=== PATIENT | female | born 1935 | race Caucasian/White ===

== ENCOUNTER 2018-01-12 16:11 | Inpatient (IN) | payer MEDICARE ==
[2018-01-12] VITALS (10 sets, daily range): BP systolic 187–218; BP diastolic 75–118; PULSE 100–114; RESP 18–24; TEMP 98.4; O2SAT 95–98
[~2018-01-12] VITALS: Ht 167.6 cm; Wt 41.1 kg
[~2018-01-12 16:11] MED LIST: ADVA100A INH; ALBU.5I NEB; APIX2.5T PO; ASPI1TAB57 PO; CART240C PO; COZA100T PO; GABA300C5 PO; IPRAAER INH; LORA0.5T PO; PRED10PA PO; PREV30CA36 PO; VENTAER INH
[2018-01-12] MEDS ORDERED: SODIUM CHLOR 0.9% 1000 ML INJ 1,000 ML IV SCH (16:26)
[2018-01-12] MEDS ORDERED: SODIUM CHLORIDE 0.9% FLUSH 10 ML FLUSH IV FLUSH PRN (16:30)
--- NOTE | 2018-01-12 16:43 | PD ---
HPI Chief Complaint: failure to thrive Time Seen by Provider: 16:25 Travel History International Travel<30 days: No Contact w/Intl Traveler<30days: No Traveled to known affect area: No History of Present Illness HPI 82-year-old female who lives alone, brought in by ambulance after her neighbor who takes care of her found her laying in bed where she states she has been for the last 3 days. The patient has had generalized weakness and has been unable to get herself out of the bed. Her neighbor he usually takes care of her recently broke his leg is unable to do so. The patient reports that she has been in bed for the last 3 days and urinated in her bed. She had a slight cough last night. She denies chest pain or dyspnea. No abdominal pain. She also reports having some loose bowel movements yesterday. She is unsure if she has had a fever. PFSH Past Medical History Hx Anticoagulant Therapy: Yes Arthritis: Yes Asthma: Yes Atrial Fibrillation: Yes Autoimmune Disease: No Blood Disorders: No Anxiety: No Depression: Yes Heart Rhythm Problems: Yes Cancer: Yes (LUNG CA L UPPER LOBECTOMY 2000) Cardiovascular Problems: Yes High Cholesterol: Yes Chemotherapy: No Chest Pain: No Congestive Heart Failure: No COPD: Yes Cerebrovascular Accident: No Coronary Artery Disease: Yes Diabetes: No Diminished Hearing: No Endocrine: Yes Gastrointestinal Disorders: Yes (ACID REFLUX, CROFT'S ESOPHAGUS, POLYPS IN COLON) GERD: Yes Glaucoma: No Genitourinary: No Headaches: Yes Hepatitis: Yes (HEPATITIS A) Hiatal Hernia: No Heparin Induced Thrombocytopen: No Herniated Disk: Yes (CERVICAL ) Hypertension: No Immune Disorder: Yes (FIBROMYALGIA) Implanted Vascular Access Dvce: Yes Kidney Stones: Yes Musculoskeletal: Yes Neurologic: No Psychiatric: No Reproductive: No Respiratory: Yes Immunizations Current: Yes Migraines: No Myocardial Infarction: No Radiation Therapy: No Renal Failure: No Seizures: No Sickle Cell Disease: No Sleep Apnea: No Thyroid Disease: Yes Ulcer: No Menopausal: Yes : 1 Para: 1 Past Surgical History Abdominal Surgery: Yes (APPENDECTOMY, CHOLECYSTECTOMY) AICD: No Appendectomy: Yes (1961) Arteriovenous Shunt: No Body Medical Devices: L GREAT TOE, stent in stomach Cholecystectomy: Yes (1983) Endocrine Surgery: Yes (PARTIAL THYROIDECTOMY FOR NODULE, 1997) Eye Surgery: Yes (BILATERAL CATARACTS REMOVED) Neurologic Surgery: No Pacemaker: No Thoracic Surgery: Yes (LEFT UPPER LUNG PARTIAL LOBECTOMY 2000) Other Surgery: Yes (thyroidectomy) Social History Alcohol Use: No Tobacco Use: Yes (12/02 PPD) Substance Use: No Allergies-Medications (Allergen,Severity, Reaction): Coded Allergies: codeine (Unverified Allergy, Severe, 07/15/17) morphine (Unverified Allergy, Severe, 07/15/17) penicillin G (Unverified Allergy, Severe, 07/15/17) amiodarone (Unverified Adverse Reaction, Severe, THYROID STORM, 07/15/17) Uncoded Allergies: NICKEL (Adverse Reaction, Intermediate, SKIN ITCHES, BLISTERS, , 05/13/14) Reported Meds & Prescriptions Reported Meds & Active Scripts Active Reported Diltiazem CD 24 HR 240 Mg Caper 240 Mg PO DAILY Prevacid (Lansoprazole) 30 Mg Capdr 30 Mg PO DAILY Cozaar (Losartan Potassium) 100 Mg Tab 100 Mg PO HS Lorazepam 0.5 Mg Tab 0.5 Mg PO BID PRN Gabapentin 300 Mg Cap 300 Mg PO TID Combivent Respimat Inh (Ipratropium-Albuterol Inh) 20-100 [facility]/Act Aero 1 Puff INH QID Aspirin 81 (Aspirin) 81 Mg Tabdr 81 Mg PO DAILY Eliquis (Apixaban) 2.5 Mg Tab 2.5 Mg PO DAILY Ventolin Hfa 18 GM Inh (Albuterol Sulfate) 90 Mcg/Act Aer 2 Puff INH Q4-6H PRN Albuterol Neb (Albuterol Sulfate) 2.5 Mg/0.5 Ml Neb 2.5 Mg NEB Q4HR NEB PRN Note: The Albuterol Sulfate Inhalation Solution is concentrated and must be diluted. Read complete instructions carefully before using. Advair Diskus Inh (Fluticasone-Salmeterol Inh) 100-50 Mcg/Blist Aer 1 Puff INH BID Rinse mouth after use. Review of Systems Except as stated in HPI: all other systems reviewed are Neg Physical Exam Narrative GENERAL: Well-developed, cachectic, elderly-appearing female, awake, alert, no apparent distress. SKIN: Focused skin assessment warm/dry. HEAD: Atraumatic. Normocephalic. EYES: Pupils equal and round. No scleral icterus. No injection or drainage. ENT: Mucous membranes pink and dry. NECK: Trachea midline. No JVD. CARDIOVASCULAR: Regular rate and rhythm. RESPIRATORY: No accessory muscle use. Clear to auscultation. Breath sounds equal bilaterally. GASTROINTESTINAL: Abdomen soft, non-tender, nondistended. MUSCULOSKELETAL: No obvious deformities. No clubbing. No cyanosis. No edema. NEUROLOGICAL: Awake and alert. No obvious cranial nerve deficits. Motor grossly within normal limits. Normal speech. PSYCHIATRIC: Appropriate mood and affect; insight and judgment normal. Data Data Last Documented VS Vital Signs Date Time Temp Pulse Resp B/P (MAP) Pulse Ox O2 Delivery O2 Flow Rate FiO2 01/12/18 17:04 98 Nasal Cannula 2.00 01/12/18 17:01 98.4 111 18 187/75 (112) Orders Orders Complete Blood Count With Diff (01/12/18 16:26) Comprehensive Metabolic Panel (01/12/18 16:26) Prothrombin Time / Inr (Pt) (01/12/18 16:26) Act Partial Throm Time (Ptt) (01/12/18 16:26) Urinalysis - C+S If Indicated (01/12/18 16:26) Iv Access Insert/Monitor (01/12/18 16:26) Ecg Monitoring (01/12/18 16:26) Oximetry (01/12/18 16:26) Sodium Chloride 0.9% Flush (Ns Flush) (01/12/18 16:30) Electrocardiogram (01/12/18 16:26) Creatine Kinase (Cpk) (01/12/18 16:26) Cath For Specimen (01/12/18 16:26) Sodium Chlor 0.9% 1000 Ml Inj (Ns 1000 M (01/12/18 16:26) Chest, Single Ap (01/12/18 ) Ckmb (Isoenzyme) Profile (01/12/18 17:03) Troponin I (01/12/18 17:03) Admit To Inpatient (01/12/18 ) Vital Signs (Adult) LIN.Q4H (01/12/18 18:03) Activity Oob With Assistance (01/12/18 18:03) Diet Regular Basic (01/12/18 Dinner) Inpatient Certification (01/12/18 ) Admit Order (Ed Use Only) (01/12/18 18:11) Labs Laboratory Tests Test 2/12/18 16:51 White Blood Count 5.6 TH/MM3 Red Blood Count 4.42 MIL/MM3 Hemoglobin 12.9 GM/DL Hematocrit 39.4 % Mean Corpuscular Volume 89.2 FL Mean Corpuscular Hemoglobin 29.2 PG Mean Corpuscular Hemoglobin Concent 32.7 % Red Cell Distribution Width 14.1 % Platelet Count 317 TH/MM3 Mean Platelet Volume 7.6 FL Neutrophils (%) (Auto) 77.1 % Lymphocytes (%) (Auto) 15.7 % Monocytes (%) (Auto) 6.4 % Eosinophils (%) (Auto) 0.1 % Basophils (%) (Auto) 0.7 % Neutrophils # (Auto) 4.3 TH/MM3 Lymphocytes # (Auto) 0.9 TH/MM3 Monocytes # (Auto) 0.4 TH/MM3 Eosinophils # (Auto) 0.0 TH/MM3 Basophils # (Auto) 0.0 TH/MM3 CBC Comment DIFF FINAL Differential Comment Prothrombin Time 10.9 SEC Prothromb Time International Ratio 1.1 RATIO Activated Partial Thromboplast Time 23.6 SEC Blood Urea Nitrogen 30 MG/DL Creatinine 0.91 MG/DL Random Glucose 76 MG/DL Total Protein 7.3 GM/DL Albumin 3.7 GM/DL Calcium Level 9.0 MG/DL Alkaline Phosphatase 94 U/L Aspartate Amino Transf (AST/SGOT) 64 U/L Alanine Aminotransferase (ALT/SGPT) 67 U/L Total Bilirubin 0.8 MG/DL Sodium Level 145 MEQ/L Potassium Level 4.1 MEQ/L Chloride Level 105 MEQ/L Carbon Dioxide Level 33.6 MEQ/L Anion Gap 6 MEQ/L Estimat Glomerular Filtration Rate 59 ML/MIN Total Creatine Kinase 76 U/L Troponin I 0.09 NG/ML [facility] Medical Decision Making Medical Screen Exam Complete: Yes Emergency Medical Condition: Yes Medical Record Reviewed: Yes Interpretation(s) EKG: Ectopic atrial tachycardia with frequent PVCs in a bigeminal pattern, LVH Differential Diagnosis Failure to thrive, metabolic abnormality, dehydration, renal insufficiency, hyperkalemia Narrative Course Initial vital signs show heart rate 111, blood pressure 187/75, pulse ox 97% on 2 L nasal cannula, oral temp of 98.4F. CBC is essentially unremarkable. CMP is remarkable for AST 64, ALT 67, otherwise essentially unremarkable. Troponin is 0.09. Chest x-ray: COPD with persistent pleural parenchymal scarring at the left base. No superimposed acute infiltrate. Patient was made aware of all findings. Given her living condition where she lives alone and her neighbor who cares and checks in on her recently broke his leg, and the fact that the patient spent 3 days in bed urinating and defecating on herself, she will be admitted for failure to thrive and likely penitentiary placement. Case discussed with hospitalist Dr. Patterson who will admit the patient to his service. Diagnosis Primary Impression: Failure to thrive in adult Additional Impression: Elevated troponin Jesu Best MD Jan 12, 2018 16:43
[2018-01-12] MEDS ORDERED: DILT240C44 PO (16:58)
[2018-01-12 16:59] LABS: AUTOMATED NEUTROPHIL # 4.3 TH/MM3 (1.8-7.7); BASOPHIL % 0.7 % (0.0-2.0); EOSINOPHIL % 0.1 % (0.0-4.0); HEMATOCRIT 39.4 % (35.0-46.0); HEMOGLOBIN 12.9 GM/DL (11.6-15.3); LYMPH % 15.7 % (9.0-44.0); LYMPHOCYTE # 0.9 TH/MM3 (1.0-4.8); MEAN CELL VOLUME 89.2 FL (80.0-100.0); MEAN CORPUSCULAR HEMOGLOBIN 29.2 PG (27.0-34.0); MEAN CORPUSCULAR HGB CONC 32.7 % (32.0-36.0); MEAN PLATELET VOLUME 7.6 FL (7.0-11.0); MONO % 6.4 % (0.0-8.0); MONOCYTE # 0.4 TH/MM3 (0-0.9); NEUT % 77.1 % (16.0-70.0); PLATELET COUNT 317 TH/MM3 (150-450); RED BLOOD COUNT 4.42 MIL/MM3 (4.00-5.30); RED CELL DISTRIBUTION WIDTH 14.1 % (11.6-17.2); WHITE BLOOD COUNT 5.6 TH/MM3 (4.0-11.0)
[2018-01-12 17:06] LABS: CHLORIDE 105 MEQ/L (98-107); SODIUM (NA) 145 MEQ/L (136-145)
[2018-01-12 17:09] LABS: ALBUMIN 3.7 GM/DL (3.4-5.0); BICARBONATE 33.6 MEQ/L (21.0-32.0); BLOOD UREA NITROGEN 30 MG/DL (7-18); GLUCOSE,RANDOM 76 MG/DL (74-106)
[2018-01-12 17:10] LABS: INTERNATIONAL NORMALIZED RATIO 1.1 RATIO; PROTHROMBIN TIME - PATIENT 10.9 SEC (9.8-11.6)
[2018-01-12 17:12] LABS: ALT (GPT) 67 U/L (10-53); AST (GOT) 64 U/L (15-37)
[2018-01-12 17:13] LABS: CREATININE 0.91 MG/DL (0.50-1.00); GLOMERULAR FILTRATION RATE 59 ML/MIN (>89)
[2018-01-12 17:14] LABS: TOTAL BILIRUBIN ADULT 0.8 MG/DL (0.2-1.0); TOTAL PROTEIN 7.3 GM/DL (6.4-8.2)
[2018-01-12 17:15] LABS: ALKALINE PHOSPHATASE 94 U/L (45-117)
[2018-01-12 17:27] LABS: TROPONIN I 0.09 NG/ML (0.02-0.05)
--- NOTE | 2018-01-12 17:56 | RADRPT ---
EXAM DATE/TIME: 01/12/2018 17:10 [facility] COMPARISON: CHEST SINGLE AP, November 13, 2016, 15:49. INDICATIONS : Patient presents extremely short of breath with history of COPD. MEDICAL HISTORY : Cardiovascular disease. Hypercholesterolemia. Gastroesophageal reflux SURGICAL HISTORY : Appendectomy. Cholecystectomy. ENCOUNTER: Initial ACUITY: 1 day PAIN SCORE: 1/10 LOCATION: Bilateral upper chest FINDINGS: A single view of the chest demonstrates the lungs to be symmetrically hyperinflated. Stable pleural-p arenchymal scarring in the left base. Right lung is otherwise clear. Postsurgical changes project ove r the descending thoracic aorta and aortic arch. Heart size is borderline prominent but appears to be well compensated. Osseous structures are intact. CONCLUSION: 1. COPD with persistent pleural-parenchymal scarring in the left base. 2. No superimposed acute infiltrate. Jimmy Mcdonald MD on January 12, 2018 at 17:52 Board Certified Radiologist. This report was verified electronically.
[2018-01-12 19:08] LABS: BILIRUBIN, URINE NEG (NEG); BLOOD, URINE NEG (NEG); GLUCOSE,URINE NEG (NEG); KETONE, URINE 15 mg/dL (NEG); NITRITE,URINE NEG (NEG); URINE LEUKOCYTE ESTERASE NEG (NEG)
[2018-01-12 19:14] LABS: MUCUS URINE OCC /lpf (OCC); URINE COLOR YELLOW (YELLW/STRAW)
[2018-01-12 19:15] LABS: RBC, URINE 0-3 /hpf (0-3); SQUAMOUS EPITHELIAL CELL URINE 0-5 /hpf (0-5)
[2018-01-12] MEDS ORDERED: SODIUM CHLOR 0.9% 250 ML INJ 250 ML IV ONE (20:45)
[2018-01-12] MEDS ORDERED: LOSARTAN 50 MG TAB PO ONE (21:30)
[2018-01-13] VITALS (9 sets, daily range): BP systolic 119–177; BP diastolic 55–108; PULSE 59–141; RESP 20–25; TEMP 95.8–98; O2SAT 93–100
[2018-01-13] MEDS ORDERED: ASPIRIN 81 MG CHEW TAB CHEW ONE (00:45)
[2018-01-13] MEDS ORDERED: LABETALOL HCL 100 MG/20 ML VIAL IV PUSH PRN (00:45)
[2018-01-13] MEDS ORDERED: ENOXAPARIN SODIUM 40 MG/0.4 ML SYRINGE SQ SCH (01:00)
--- NOTE | 2018-01-13 01:22 | RADRPT ---
EXAM DATE/TIME: 01/13/2018 01:05 [facility] COMPARISON: No previous studies available for comparison. INDICATIONS : Evaluate for cerebrovascular injury. Altered mental status. RADIATION DOSE: 38.09 CTDIvol (mGy) MEDICAL HISTORY : Hypertension. Carcinoma, lung. SURGICAL HISTORY : None. ENCOUNTER: Initial ACUITY: 3 days PAIN SCALE: 2/10 LOCATION: cranial TECHNIQUE: Multiple contiguous axial images were obtained of the head. Using automated exposure control and adj ustment of the mA and/or kV according to patient size, radiation dose was kept as low as reasonably a chievable to obtain optimal diagnostic quality images. DICOM format image data is available electro nically for review and comparison. FINDINGS: There is mild atrophy. No hemorrhage, signs of acute infarction, or mass. The osseous structures are intact. CONCLUSION: No acute disease. Allen Ward MD on January 13, 2018 at 1:19 Board Certified Radiologist. This report was verified electronically.
[2018-01-13 06:54] LABS: CHLORIDE 105 MEQ/L (98-107); SODIUM (NA) 144 MEQ/L (136-145)
[2018-01-13 06:58] LABS: CALCIUM 8.8 MG/DL (8.5-10.1)
[2018-01-13 06:59] LABS: ALBUMIN 3.5 GM/DL (3.4-5.0)
[2018-01-13 07:08] LABS: ALKALINE PHOSPHATASE 92 U/L (45-117); ALT (GPT) 69 U/L (10-53); AST (GOT) 59 U/L (15-37); BLOOD UREA NITROGEN 31 MG/DL (7-18); CREATININE 0.97 MG/DL (0.50-1.00); GLOMERULAR FILTRATION RATE 55 ML/MIN (>89); GLUCOSE,RANDOM 187 MG/DL (74-106); TOTAL BILIRUBIN ADULT 0.8 MG/DL (0.2-1.0); TOTAL PROTEIN 7.1 GM/DL (6.4-8.2)
--- NOTE | 2018-01-13 10:10 | OTSOAPIP ---
TIME SESSION COMPLETED: 900 TREATMENT TIME: 15 MINS. CHART REVIEWED. PATIENT FOUND IN BED EATING HER BREAKFAST. THIS THERAPIST RETURNED LATER, PATIENT COMPLETED BREAKFAST EXCEPT FOR APPROXIMATELY TWO SIP OF COFFEE LEFT, PATIENT SLOWLY SIP. ATTEMPT TO PERFORM EVALUATION HOWEVER PATIENT COMPLAINT OF CALLING FOR HELP TO GO THE BATHROOM AND NO ONE HAS COME. THIS THERAPIST VOLUNTEER TO TAKE PATIENT TO THE BATHROOM, HOWEVER PATIENT REFUSED. THROUGHOUT CONVERSATION PATIENT COMPLAINT THAT THE DOCTOR MADE HER WAIT A LONG TIME IN THE EMERGENCY ROOM. PATIENT WAS INFORMED THAT THE HOSPITAL HAS BEEN VERY BUSY WITH AN OVERFLOW OF INCOMING PATIENTS, AND IT WASN'T INTENTIONAL. PATIENT WAS RE-EDUCATED ON OCCUPATIONAL THERAPY INTERVENTION AND ATTEMPTED TO PROCEED WITHOUT OF BED ASSESSMENT. OFFER TO TRANSFER PATIENT TO RECLINER, PATIENT STATED "I HAVE TWO RECLINERS AT HOME AND DON'T EVEN USE THEM, I USUALLY STAY IN BED". PATIENT EDUCATED THE IMPORTANCE OF SITTING UP TO PREVENT FURTHER MEDICAL COMPLICATION. PATIENT REFUSED STATED "I WILL GET UP WHEN I WANT TO, THAT DOCTOR MADE ME WAIT NOW I AM GOING TO MAKE HIM WAIT". TREATMENT DISCONTINUED DUE TO PATIENT BEING NON-COMPLIANT. NO TREATMENT RENDERED INTERDISCIPLINARY COMMUNICATION: CONSULTED WITH PHYSICAL THERAPY REGARDING THE ABOVE, PHYSICAL THERAPY TO ATTEMPT TO SEE PATIENT LATER TODAY. Therapist: MICHAEL WALLACE/Yamile[employer] Signature on file
[2018-01-13] MEDS ORDERED: LORazepam 0.5 MG TAB PO PRN (13:15)
[2018-01-13] MEDS ORDERED: RESP: ALBUTEROL CONC 2.5 MG/0.5 ML NEB NEB PRN (13:15)
--- NOTE | 2018-01-13 13:44 | HHI.HP ---
cc: Jena Greene MD [facility] Service [facility] Primary Care Physician No Primary Care Physician Admission Diagnosis failure to thrive, elevated troponin Diagnoses: (1) Atrial fibrillation with RVR (2) Dysphagia (3) GERD (gastroesophageal reflux disease) (4) Failure to thrive in adult (5) Elevated troponin (6) Oxygen dependent (7) COPD (chronic obstructive pulmonary disease) (8) Coronary artery disease (9) Hypertension Chief Complaint: weakness Travel History International Travel<30 Days: No Contact w/Intl Traveler <30 Da: No Traveled to Known Affected Are: No History of Present Illness The patient is an 82-year-old female who was brought to the emergency department because of generalized weakness. She states that she has not been able to get herself out of bed to use the bathroom. She reported abdominal discomfort and reflux over the past few days. Denies nausea or vomiting. States that she had to have a bowel movement and could not get out of her bed, so she defecated in the bed. Upon EMS arrival, the patient's bed was covered in urine and feces. Apparently she has a neighbor who frequently checks on her , but he has been unable to do so due to a broken leg. Patient denies chest pain. She has chronic dyspnea and is oxygen dependent, on 4 L continuous at home. She states that she has had difficulty swallowing seems to be getting worse. She has had increasing reflux as well despite taking PPI. Review of Systems Constitutional: DENIES: Fever, Chills, Night Sweats Eyes: DENIES: Blurred vision, Vision loss Ears, nose, mouth, throat: DENIES: Hearing loss Respiratory: DENIES: Cough, Wheezing, Sputum production, Shortness of breath Cardiovascular: DENIES: Chest pain, Palpitations, Dyspnea on Exertion, Lower Extremity Edema Gastrointestinal: COMPLAINS OF: Abdominal pain, Difficulty Swallowing, DENIES: Constipation, Diarrhea, Nausea, Vomiting Genitourinary: DENIES: Urinary frequency, Urinary incontinence, Urgency, Hematuria, Dysuria, Nocturia Musculoskeletal: DENIES: Joint pain, Muscle aches Integumentary: DENIES: Pruritus, Rash Hematologic/lymphatic: DENIES: Bruising Neurologic: DENIES: Headache Past Family Social History Past Medical History Arthritis COPD History of lung cancer, left upper lobe Atrial fibrillation Coronary artery disease GERD, Jhaveri's esophagus History of hepatitis A Fibromyalgia History of kidney stones Hyperlipidemia Past Surgical History Appendectomy Cholecystectomy Partial thyroidectomy 1997 Bilateral cataract surgery Left upper lung partial lobectomy 2000 Right wrist surgery Left great toe surgery Reported Medications Diltiazem CD 24 HR 240 Mg Caper 240 Mg PO DAILY Prevacid (Lansoprazole) 30 Mg Capdr 30 Mg PO DAILY Cozaar (Losartan Potassium) 100 Mg Tab 100 Mg PO HS Lorazepam 0.5 Mg Tab 0.5 Mg PO BID PRN Gabapentin 300 Mg Cap 300 Mg PO TID Combivent Respimat Inh (Ipratropium-Albuterol Inh) 20-100 [facility]/Act Aero 1 Puff INH QID Aspirin 81 (Aspirin) 81 Mg Tabdr 81 Mg PO DAILY Eliquis (Apixaban) 2.5 Mg Tab 2.5 Mg PO DAILY Ventolin Hfa 18 GM Inh (Albuterol Sulfate) 90 Mcg/Act Aer 2 Puff INH Q4-6H PRN Albuterol Neb (Albuterol Sulfate) 2.5 Mg/0.5 Ml Neb 2.5 Mg NEB Q4HR NEB PRN Note: The Albuterol Sulfate Inhalation Solution is concentrated and must be diluted. Read complete instructions carefully before using. Advair Diskus Inh (Fluticasone-Salmeterol Inh) 100-50 Mcg/Blist Aer 1 Puff INH BID Rinse mouth after use. Allergies: Coded Allergies: codeine (Unverified Allergy, Severe, 07/15/17) morphine (Unverified Allergy, Severe, 07/15/17) penicillin G (Unverified Allergy, Severe, 07/15/17) amiodarone (Unverified Adverse Reaction, Severe, THYROID STORM, 07/15/17) Uncoded Allergies: NICKEL (Adverse Reaction, Intermediate, SKIN ITCHES, BLISTERS, , 05/13/14) Family History Heart disease Social History States that she quit smoking a few weeks ago. Denies alcohol or illicit drug use. Physical Exam Vital Signs Vital Signs Date Time Temp Pulse Resp B/P (MAP) Pulse Ox O2 Delivery O2 Flow Rate FiO2 01/13/18 08:00 95.8 72 24 137/65 (89) 95 01/13/18 03:30 98.0 129 25 119/78 (92) 97 01/13/18 03:10 Nasal Cannula 3.00 01/13/18 02:40 111 20 120/68 (85) 98 Nasal Cannula 3.00 01/13/18 02:29 106 20 140/55 (83) 98 Nasal Cannula 3.00 01/13/18 01:15 141 20 141/64 (89) 94 Nasal Cannula 3.00 01/12/18 23:00 113 20 208/105 (139) 97 Nasal Cannula 3.00 01/12/18 22:30 112 20 217/110 (145) 97 Nasal Cannula 3.00 01/12/18 22:00 114 20 217/104 (141) 98 Nasal Cannula 3.00 01/12/18 21:30 112 20 218/99 (138) 98 Nasal Cannula 3.00 01/12/18 21:00 111 20 194/118 (143) 95 Nasal Cannula 3.00 01/12/18 20:58 132 24 194/118 (143) 01/12/18 19:56 100 18 206/92 (130) 96 Nasal Cannula 3.00 01/12/18 19:00 110 18 96 Nasal Cannula 3.00 01/12/18 19:00 110 18 197/93 (127) 96 Nasal Cannula 3.00 01/12/18 17:30 Nasal Cannula 2.00 01/12/18 17:04 98 Nasal Cannula 2.00 01/12/18 17:01 98.4 111 18 187/75 (112) 97 Physical Exam GENERAL: Thin, frail elderly female in no acute distress. HEENT: Normocephalic, atraumatic. Pupils equal, round and reactive. Extraocular movements intact. No scleral icterus. No injection or drainage. Oropharynx is clear. Mucous membranes are moist. CARDIOVASCULAR: Tachycardic, irregular. RESPIRATORY: Scattered wheeze. Breathing is non-labored. GASTROINTESTINAL: Abdomen soft, non-tender, nondistended. EXTREMITIES: No lower extremity edema. No calf tenderness. PSYCH: Alert and oriented x 3. Laboratory Laboratory Tests Test 01/12/18 16:51 01/12/18 19:01 01/12/18 21:10 01/13/18 05:50 White Blood Count 5.6 Red Blood Count 4.42 Hemoglobin 12.9 Hematocrit 39.4 Mean Corpuscular Volume 89.2 Mean Corpuscular Hemoglobin 29.2 Mean Corpuscular Hemoglobin Concent 32.7 Red Cell Distribution Width 14.1 Platelet Count 317 Mean Platelet Volume 7.6 Neutrophils (%) (Auto) 77.1 Lymphocytes (%) (Auto) 15.7 Monocytes (%) (Auto) 6.4 Eosinophils (%) (Auto) 0.1 Basophils (%) (Auto) 0.7 Neutrophils # (Auto) 4.3 Lymphocytes # (Auto) 0.9 Monocytes # (Auto) 0.4 Eosinophils # (Auto) 0.0 Basophils # (Auto) 0.0 CBC Comment DIFF FINAL Differential Comment Prothrombin Time 10.9 Prothromb Time International Ratio 1.1 Activated Partial Thromboplast Time 23.6 Blood Urea Nitrogen 30 31 Creatinine 0.91 0.97 Random Glucose 76 187 Total Protein 7.3 7.1 Albumin 3.7 3.5 Calcium Level 9.0 8.8 Alkaline Phosphatase 94 92 Aspartate Amino Transf (AST/SGOT) 64 59 Alanine Aminotransferase (ALT/SGPT) 67 69 Total Bilirubin 0.8 0.8 Sodium Level 145 144 Potassium Level 4.1 4.3 Chloride Level 105 105 Carbon Dioxide Level 33.6 36.0 Anion Gap 6 3 Estimat Glomerular Filtration Rate 59 55 Total Creatine Kinase 76 Troponin I 0.09 0.10 Urine Color YELLOW Urine Turbidity CLEAR Urine pH 6.0 Urine Specific Dunlo 1.012 Urine Protein NEG Urine Glucose (UA) NEG Urine Ketones 15 Urine Occult Blood NEG Urine Nitrite NEG Urine Bilirubin NEG Urine Leukocyte Esterase NEG Urine RBC 0-3 Urine Squamous Epithelial Cells 0-5 Urine Mucus OCC Microscopic Urinalysis Comment CULT NOT INDICATED Result Diagram: 01/12/18 1651 01/13/18 0550 Imaging Last Impressions Head CT 01/13/18 0000 Signed Impressions: Service Date/Time: Saturday, January 13, 2018 01:05 - CONCLUSION: No acute disease. Allen Ward MD Chest X-Ray 01/12/18 0000 Signed Impressions: Service Date/Time: Friday, January 12, 2018 17:10 - CONCLUSION: 1. COPD with persistent pleural-parenchymal scarring in the left base. 2. No superimposed acute infiltrate. MD Steve Leon VTE Risk Assessment Caprini VTE Risk Assessment: Mod/High Risk (score >= 2) Caprini Risk Assessment Model Point Value = 1 Point Value = 2 Point Value = 3 Point Value = 5 Age 41-60 Minor surgery BMI > 25 kg/m2 Swollen legs Varicose veins or History of unexplained or recurrent spontaneous Oral contraceptives or hormone replacement Sepsis (< 1 month) Serious lung disease, including pneumonia (< 1 month) Abnormal pulmonary function Acute myocardial infarction Congestive heart failure (< 1 month) History of inflammatory bowel disease Medical patient at bed rest Age 61-74 Arthroscopic surgery Major open surgery (> 45 min) Laparoscopic surgery (> 45 min) Malignancy Confined to bed (> 72 hours) Immobilizing plaster cast Central venous access Age >= 75 History of VTE Family history of VTE Factor V Leiden Prothrombin [id number] Lupus anticoagulant Anticardiolipin antibodies Elevated serum homocysteine Heparin-induced thrombocytopenia Other congenital or acquired thrombophilia Stroke (< 1 month) Elective arthroplasty Hip, pelvis, or leg fracture Acute spinal cord injury (< 1 month) Prophylaxis Regimen Total Risk Factor Score Risk Level Prophylaxis Regimen 0-1 Low Early ambulation 2 Moderate Order ONE of the following: *Sequential Compression Device (SCD) *Heparin 5000 units SQ BID 3-4 Higher Order ONE of the following medications: *Heparin 5000 units SQ TID *Enoxaparin/Lovenox 40 mg SQ daily (WT < 150 kg, CrCl > 30 mL/min) *Enoxaparin/Lovenox 30 mg SQ daily (WT < 150 kg, CrCl > 10-29 mL/min) *Enoxaparin/Lovenox 30 mg SQ BID (WT < 150 kg, CrCl > 30 mL/min) AND/OR *Sequential Compression Device (SCD) 5 or more Highest Order ONE of the following medications: *Heparin 5000 units SQ TID (Preferred with Epidurals) *Enoxaparin/Lovenox 40 mg SQ daily (WT < 150 kg, CrCl > 30 mL/min) *Enoxaparin/Lovenox 30 mg SQ daily (WT < 150 kg, CrCl > 10-29 mL/min) *Enoxaparin/Lovenox 30 mg SQ BID (WT < 150 kg, CrCl > 30 mL/min) AND *Sequential Compression Device (SCD) Assessment and Plan Assessment and Plan 1. Generalized weakness, failure to thrive: Patient has been too weak to get out of bed to use the bathroom. She has been remaining in bed all day. PT/OT. Will likely need SNF placement. 2. Atrial fibrillation with RVR: Heart rate has been elevated up to the 140s. Currently rate is better controlled. Continue Cardizem. Monitor on telemetry. Continue Eliquis. 3. COPD: Continue DuoNeb, supplemental oxygen, Symbicort. Not in acute exacerbation. 4. Hypertension: Continue Cozaar. 5. GERD, dysphasia: Continue PPI. Consult patient's [employer] executive director. Patient has had weight loss over the past few years as well. 6. DVT prophylaxis: Eliquis. Fazal Spann MD Jan 13, 2018 13:44
[2018-01-13] MEDS: APIXABAN 2.5 MG TABLET PO SCH (15:43)
[2018-01-13] MEDS: DILTIAZEM-CD 240 MG CAP ER PO SCH (15:43)
[2018-01-13] MEDS: PANTOPRAZOLE SOD 40 MG DELAYED RELEASE TAB PO SCH (15:43)
[2018-01-13] MEDS ORDERED: NON-FORMULARY DRUG (Ipratropium-Albuterol Inh (Combivent Respimat Inh) 1 PUFF) INH SCH (18:00)
[2018-01-13] MEDS: GABAPENTIN 300 MG CAP PO SCH (19:14)
[2018-01-13] MEDS: ALBUTEROL SULFATE 90 MCG/ACT HFA 8 GM INHALER INH SCH ×2 (19:16→21:00)
[2018-01-13] MEDS: LOSARTAN 50 MG TAB PO SCH (21:48)
[2018-01-13] MEDS: BUDESONIDE-FORMOTEROL 80/4.5 MCG INHALER INH SCH (21:48)
[2018-01-14] VITALS: BP 122/63; PULSE 63; RESP 20; TEMP 97.8; O2SAT 100
[2018-01-14 08:13] VITALS: BP 139/64; PULSE 58; RESP 15; TEMP 96.1; O2SAT 100
[2018-01-14] MEDS: APIXABAN 2.5 MG TABLET PO SCH (08:24)
[2018-01-14] MEDS: DILTIAZEM-CD 240 MG CAP ER PO SCH (08:25)
[2018-01-14] MEDS: ASPIRIN EC 81 MG TABEC PO SCH (08:25)
[2018-01-14] MEDS: GABAPENTIN 300 MG CAP PO SCH ×3 (08:25→18:50)
[2018-01-14] MEDS: PANTOPRAZOLE SOD 40 MG DELAYED RELEASE TAB PO SCH (08:26)
[2018-01-14] MEDS: TIOTROPIUM BROMIDE 18 MCG INH INH SCH (08:27)
[2018-01-14] MEDS: BUDESONIDE-FORMOTEROL 80/4.5 MCG INHALER INH SCH ×2 (08:27→20:38)
[2018-01-14] MEDS: ALBUTEROL SULFATE 90 MCG/ACT HFA 8 GM INHALER INH SCH ×4 (08:28→20:39)
--- NOTE | 2018-01-14 09:38 | EKG ---
Date Performed: 01/12/2018 Time Performed: 16:52:11 PTAGE: 82 years EKG: ECTOPIC ATRIAL TACHYCARDIA WITH FREQUENT VENTRICULAR PREMATURE COMPLEXES IN A BIGEMINAL PAT TERN POSSIBLE LEFT ATRIAL ENLARGEMENT LEFT VENTRICULAR HYPERTROPHY AND ST-T CHANGE ABNORMAL ECG PREVIOUS TRACING : 11/13/2016 16.04 Since prior tracing, rate is faster. Would recommend a repe at tracing at a slower rate to exclude an atrial dysrhythmia. PVCs are bounded by geminal pattern. DOCTOR: David Sanchez Interpretating Date/Time 01/14/2018 09:37:30
--- NOTE | 2018-01-14 10:14 | HHI.FF ---
Face to Face Verification Diagnosis: (1) Debility (2) Failure to thrive in adult Physical Therapy Order: Evaluate and Treat, Improve ambulation, Strength and gait training Occupational Therapy Order: Evaluate and Treat, Improve ADL, Gross motor coordination, Fine motor coordination Home Health Nursing Order: Medical education Signs/symptoms of disease process Nursing assessment with vital signs I have seen patient Tiff Phillips on 01/14/18. My clinical findings support the need for the requested home health care services because: Deconditioned w/ increased weakness Limited ability to care for self I certify that my clinical findings support that this patient is homebound because: Unsteady gait/balance Fazal Hernandez Jan 14, 2018 10:14
[2018-01-14 12:00] VITALS: BP 119/64; PULSE 65; RESP 17; TEMP 95.6; O2SAT 95
--- NOTE | 2018-01-14 12:40 | PD.CONS ---
Consult Service Palliative Care . Consult Requested By Dr. Patterson . Primary Care Physician No Primary Care Physician . Reason for Consultation a. To assist with evaluation and management of symptoms including: debility , pain, dyspnea. b. To assist medical decision maker(s) with: better understanding of current medical conditions; weighing benefits/burdens of medical treatment options; making medical treatment decisions. . HPI History of Present Illness Ms. Phillips is an 81-year-old female who presented to [facility] on 2017 via EMS after her neighbors found her lying in bed where she stated she had been for at least 3 days. Patient reported generalized weakness stating she had been unable to get herself out of bed and had urinated and defecated on herself. Apparently she has a neighbor who frequently checks on her, but he recently broke his leg and had been unable to do so. Patient reported abdominal discomfort and reflux over the previous few days; she denied nausea or vomiting. She has chronic dyspnea and is oxygen dependent on 4L via nasal cannula at home. Patient also reported progressively increased dysphasia and increased reflux despite taking a PPI. Additional diagnostic data: * Vital signs: Pulse 111, respirations 18, BP 187/75, oxygen saturation 98% on 2 L via nasal cannula, oral temperature 98.4 * WBC: 5.6, hemoglobin 12.9, hematocrit 39.4, platelets 317, neutrophils 77.1% * Sodium: 145, potassium 4.1, chloride 105, carbon dioxide 33.6, glucose 76, calcium 9.0 * BUN: 30, creatinine 0.91, GFR 59 * Total bilirubin: 0.8, AST 64, ALT 67 * Total creatine kinase: 77 * Troponin: 0.09, total protein 3.7 * Urinalysis-negative * Chest x-ray showing COPD with persistent pleural parenchymal scarring in the left base; no superimposed acute infiltrate * CT brain revealed mild atrophy but no acute disease. * EKG: Ectopic atrial tachycardia with frequent PVCs in a bigeminal pattern Patient was admitted for further evaluation and medical management of failure to thrive; she currently lives alone in will likely require mcc placement. Palliative Care was consulted to assist with symptom management and to discuss with the patient/family the benefits and burdens of her current illnesses and the options regarding future care. Function/Cognitive Trajectory Patient lives alone. She initially stated she is able to ambulate independently and drive to the grocery store. However, the medical notes the patient was brought to the hospital covered in urine and feces because she was too weak to get out of bed 3 days. Patient later reported she had a walker with a seat at home. Physical therapy evaluated the patient who was found to have significant mobility deficits; patient stated she would "rather than go to rehabilitation." Case management spoke to the patient's son who lives in [place]. He states the patient has a phone at her bedside in a life alert button but she refuses to use it. He agrees the patient would benefit from, at least brief, placement at an SNF for rehabilitation. . Review of Systems Constitutional: COMPLAINS OF: Weight loss, Change in appetite, Generalized weakness Respiratory: COMPLAINS OF: Shortness of breath Cardiovascular: COMPLAINS OF: Dyspnea on Exertion Hematologic/Lymphatics: COMPLAINS OF: Bruising Past Family Social History Coded Allergies: codeine (Unverified Allergy, Severe, 07/15/17) morphine (Unverified Allergy, Severe, 07/15/17) penicillin G (Unverified Allergy, Severe, 07/15/17) amiodarone (Unverified Adverse Reaction, Severe, THYROID STORM, 07/15/17) Uncoded Allergies: NICKEL (Adverse Reaction, Intermediate, SKIN ITCHES, BLISTERS, , 05/13/14) Past Medical History Arthritis Gastroparesis CKD Coronary artery disease, with stenting. Hypertension Neuropathy COPD History of lung cancer, left upper lobe Atrial fibrillation GERD, Jhaveri's esophagus History of hepatitis A Fibromyalgia History of kidney stones Hyperlipidemia History of hepatitis A History myocardial infarction . Past Surgical History Appendectomy Cholecystectomy Partial thyroidectomy in 1997 Bilateral cataract surgery Left upper lung partial lobectomy 2000 Right wrist surgery Left great toe surgery Status post pacemaker/AICD placement . Reported Medications Diltiazem CD 24 HR 240 Mg Caper 240 Mg PO DAILY Prevacid (Lansoprazole) 30 Mg Capdr 30 Mg PO DAILY Cozaar (Losartan Potassium) 100 Mg Tab 100 Mg PO HS Lorazepam 0.5 Mg Tab 0.5 Mg PO BID PRN Gabapentin 300 Mg Cap 300 Mg PO TID Combivent Respimat Inh (Ipratropium-Albuterol Inh) 20-100 Long Term/Act Aero 1 Puff INH QID Aspirin 81 (Aspirin) 81 Mg Tabdr 81 Mg PO DAILY Eliquis (Apixaban) 2.5 Mg Tab 2.5 Mg PO DAILY Ventolin Hfa 18 GM Inh (Albuterol Sulfate) 90 Mcg/Act Aer 2 Puff INH Q4-6H PRN Albuterol Neb (Albuterol Sulfate) 2.5 Mg/0.5 Ml Neb 2.5 Mg NEB Q4HR NEB PRN Note: The Albuterol Sulfate Inhalation Solution is concentrated and must be diluted. Read complete instructions carefully before using. Advair Diskus Inh (Fluticasone-Salmeterol Inh) 100-50 Mcg/Blist Aer 1 Puff INH BID Rinse mouth after use. . Current Medications Medications (Trade) Dose Ordered Sig/Gail Route Start Time Stop Time Status Last Admin (NS Flush) 2 ml UNSCH PRN IV FLUSH 01/12/18 16:30 (Trandate Inj) 10 mg Q20M PRN IV PUSH 01/13/18 00:45 01/13/18 01:18 (Albuterol Concentrated Neb) 2.5 mg Q4HR NEB PRN NEB 01/13/18 13:15 (Eliquis) 2.5 mg DAILY PO 01/13/18 13:15 01/14/18 08:24 (Ecotrin Ec) 81 mg DAILY PO 01/14/18 09:00 01/14/18 08:25 (Cardizem Cd) 240 mg DAILY PO 01/13/18 13:15 01/14/18 08:25 (Neurontin) 300 mg TID PO 01/13/18 18:00 01/14/18 08:25 (Ativan) 0.5 mg BID PRN PO 01/13/18 13:15 (Cozaar) 100 mg HS PO 01/13/18 21:00 01/13/18 21:48 (Symbicort 80-4.5 Mcg Inh) 2 puff BID INH 01/13/18 21:00 01/14/18 08:27 (Protonix) 40 mg DAILY PO 01/13/18 13:30 01/14/18 08:26 (Spiriva Inh) 18 mcg DAILY INH 01/14/18 09:00 01/14/18 08:27 (Proair Hfa Inh) 2 puff QID INH 01/13/18 18:00 01/14/18 08:28 Family History Family history of coronary artery disease. Father secondary to MS; mother from liver disease. . . Substance Use Tobacco: Previous heavy smoker, reportedly quit approximately 5 years ago. 30+ pack year smoking history. Alcohol: Patient denies Prescription med abuse: None known Illicits: None known Psychosocial History Patient is originally from [place], [place]. She has one sister who is alive and well, living in [place]. They are very close and talk weekly. She has a high school education. She was to her ([place]) for approximately 60 years. She states he 3 years ago from complications related to Alzheimer's. Together they had one son (Gary). Gary live in [place], [place] and commutes to [place] for work. The patient has 2 adult granddaughters who are nurses, to physicians. They do not live in [place]. . . Spiritual/Cultural Factors Tenriism jacqui . Durable Power of Wireless Retail Manager: Completed, but not made available Documented care wishes: Patient states she has completed some written advanced directives, and her son has them; it is unclear which documents were completed. . Today's verbally stated goals: Aggressive up to the point of cardiopulmonary resuscitation . Family/friends goals: Pending procedures with patient's son. . Ethical and Legal Issues No known ethical or legal issues impacting care. . Physical Exam Vital Signs Date Time Temp Pulse Resp B/P (MAP) Pulse Ox O2 Delivery O2 Flow Rate FiO2 01/14/18 08:40 97 Nasal Cannula 2.50 01/14/18 08:30 100 Nasal Cannula 3.00 01/14/18 08:13 96.1 58 15 139/64 (89) 100 01/14/18 00:00 97.8 63 20 122/63 (82) 100 01/13/18 20:00 97.4 59 20 136/74 (94) 100 01/13/18 20:00 97.4 59 20 136/74 (94) 100 01/13/18 20:00 Nasal Cannula 3.00 01/13/18 17:55 177/86 (116) 01/13/18 16:00 96.6 117 20 160/108 (125) 93 01/13/18 14:01 96.0 106 21 147/72 (97) 95 . Exam CONSTITUTIONAL/GENERAL: This is a cachectic, elderly female patient in no acute distress TUBES/LINES/DRAINS: SKIN: No jaundice, rashes, or lesions. Ecchymoses on upper extremities. No wounds seen anteriorly. Skin temperature appropriate. Not diaphoretic. HEAD: Atraumatic. Normocephalic. EYES: Pupils equal and round and reactive. Extraocular motions intact. No scleral icterus. No injection or drainage. Fundi not examined. ENT: Hearing grossly normal. Nose without bleeding or purulent drainage. His membranes moist NECK: Trachea midline. Supple, nontender. No palpable thyroid enlargement or nodularity. CARDIOVASCULAR: Irregularly irregular. No JVD. Peripheral pulses symmetric. RESPIRATORY/CHEST: Symmetric, unlabored respirations. Breath sounds equal bilaterally. Scattered wheezing GASTROINTESTINAL: Abdomen soft, non-tender, nondistended. Bowel sounds present. GENITOURINARY: Without palpable bladder distension. Esquivel catheter in place. MUSCULOSKELETAL: Extremities without clubbing, cyanosis, or edema. No mottling or clubbing. LYMPHATICS: No palpable cervical or supraclavicular adenopathy. NEUROLOGICAL: Awake and alert. Follows commands. Cognitively sharp. Moves all extremities. PSYCHIATRIC: No obvious anxiety/depression. no apparent hallucinations or other psychotic thought process. . Diagnostic Tests Laboratory Laboratory Tests Test 01/12/18 16:51 01/12/18 19:01 01/12/18 21:10 01/13/18 05:50 White Blood Count 5.6 TH/MM3 (4.0-11.0) Red Blood Count 4.42 MIL/MM3 (4.00-5.30) Hemoglobin 12.9 GM/DL (11.6-15.3) Hematocrit 39.4 % (35.0-46.0) Mean Corpuscular Volume 89.2 FL (80.0-100.0) Mean Corpuscular Hemoglobin 29.2 PG (27.0-34.0) Mean Corpuscular Hemoglobin Concent 32.7 % (32.0-36.0) Red Cell Distribution Width 14.1 % (11.6-17.2) Platelet Count 317 TH/MM3 (150-450) Mean Platelet Volume 7.6 FL (7.0-11.0) Neutrophils (%) (Auto) 77.1 % (16.0-70.0) Lymphocytes (%) (Auto) 15.7 % (9.0-44.0) Monocytes (%) (Auto) 6.4 % (0.0-8.0) Eosinophils (%) (Auto) 0.1 % (0.0-4.0) Basophils (%) (Auto) 0.7 % (0.0-2.0) Neutrophils # (Auto) 4.3 TH/MM3 (1.8-7.7) Lymphocytes # (Auto) 0.9 TH/MM3 (1.0-4.8) Monocytes # (Auto) 0.4 TH/MM3 (0-0.9) Eosinophils # (Auto) 0.0 TH/MM3 (0-0.4) Basophils # (Auto) 0.0 TH/MM3 (0-0.2) CBC Comment DIFF FINAL Differential Comment Prothrombin Time 10.9 SEC (9.8-11.6) Prothromb Time International Ratio 1.1 RATIO Activated Partial Thromboplast Time 23.6 SEC (24.3-30.1) Blood Urea Nitrogen 30 MG/DL (7-18) 31 MG/DL (7-18) Creatinine 0.91 MG/DL (0.50-1.00) 0.97 MG/DL (0.50-1.00) Random Glucose 76 MG/DL (74-106) 187 MG/DL (74-106) Total Protein 7.3 GM/DL (6.4-8.2) 7.1 GM/DL (6.4-8.2) Albumin 3.7 GM/DL (3.4-5.0) 3.5 GM/DL (3.4-5.0) Calcium Level 9.0 MG/DL (8.5-10.1) 8.8 MG/DL (8.5-10.1) Alkaline Phosphatase 94 U/L (45-117) 92 U/L (45-117) Aspartate Amino Transf (AST/SGOT) 64 U/L (15-37) 59 U/L (15-37) Alanine Aminotransferase (ALT/SGPT) 67 U/L (10-53) 69 U/L (10-53) Total Bilirubin 0.8 MG/DL (0.2-1.0) 0.8 MG/DL (0.2-1.0) Sodium Level 145 MEQ/L (136-145) 144 MEQ/L (136-145) Potassium Level 4.1 MEQ/L (3.5-5.1) 4.3 MEQ/L (3.5-5.1) Chloride Level 105 MEQ/L (98-107) 105 MEQ/L (98-107) Carbon Dioxide Level 33.6 MEQ/L (21.0-32.0) 36.0 MEQ/L (21.0-32.0) Anion Gap 6 MEQ/L (5-15) 3 MEQ/L (5-15) Estimat Glomerular Filtration Rate 59 ML/MIN (>89) 55 ML/MIN (>89) Total Creatine Kinase 76 U/L (26-192) Troponin I 0.09 NG/ML (0.02-0.05) 0.10 NG/ML (0.02-0.05) Urine Color YELLOW (YELLW/STRAW) Urine Turbidity CLEAR (CLEAR) Urine pH 6.0 (5.0-8.5) Urine Specific [place] 1.012 (1.002-1.035) Urine Protein NEG mg/dL (NEG-TRACE) Urine Glucose (UA) NEG mg/dL (NEG) Urine Ketones 15 mg/dL (NEG) Urine Occult Blood NEG (NEG) Urine Nitrite NEG (NEG) Urine Bilirubin NEG (NEG) Urine Leukocyte Esterase NEG (NEG) Urine RBC 0-3 /hpf (0-3) Urine Squamous Epithelial Cells 0-5 /hpf (0-5) Urine Mucus OCC /lpf (OCC) Microscopic Urinalysis Comment CULT NOT INDICATED . Result Diagram: 01/12/18 1651 01/13/18 0550 Imaging Last [address] 01/13/18 0000 Signed Impressions: Service Date/Time: Saturday, January 13, 2018 01:05 - CONCLUSION: No acute disease. Allen Ward MD Chest X-Ray 01/12/18 0000 Signed Impressions: Service Date/Time: Friday, January 12, 2018 17:10 - CONCLUSION: 1. COPD with persistent pleural-parenchymal scarring in the left base. 2. No superimposed acute infiltrate. Jimmy Mcdonald MD . Patient/Family Conference Present at Family Conference: Met with patient at bedside; awaiting return phone call from patient's son; spoke with patient's son via telephone. . Family Conference Location: Bedside Issues Discussed: * Palliative care role, purpose, approach * Additional medical, psychosocial, and spiritual history * Patients general health, functional status, and cognitive changes in the months leading up to the current hospitalization * Patient/family understanding of the current medical problems * Patients goals of care as best understood from advance directives and/or conversations and/or values * Current medical treatment options and benefits/burdens of those options * Likely scenarios comparing ongoing aggressive care with a transition to comfort measures only * Questions answered to the best of my ability * Palliative care contact information provided . Assessment and Plan Disease Oriented Problem List: (1) Atrial fibrillation (2) Failure to thrive in adult (3) COPD (chronic obstructive pulmonary disease) (4) Coronary artery disease Comment: Status post stent placement . (5) Hypertension (6) Oxygen dependent (7) Atrial fibrillation with RVR (8) History of lung cancer (9) GERD (gastroesophageal reflux disease) Symptom Scale: (1) Debility (2) Dysphagia (3) Dyspnea Pertinent Non-Medical Issues Psychosocial: Patient is originally from [place], [place]. She has one sister who is alive and well, living in [place]. They are very close and talk weekly. She has a high school education. She was to her ( [place]) for approximately 60 years. She states he 3 years ago from complications related to Alzheimer's. Together they had one son (Gary). Gary live in [place], [place] and commutes to [place] for work. The patient has 2 adult granddaughters who are nurses, to physicians. They do not live in [place]. Spiritual: Tenriism jacqui Legal: Patient states she has completed written advanced directives, and they are in the possession of her son. Per [place] statutes, in the absence of written advanced directives healthcare proxy decision-making falls to the patient's son. Ethical issues impacting care: No known ethical issues impacting care at this time. . . Important Contacts Gary Phillips, son: [phone] . Prognosis Patient is an 82-year-old female with multiple comorbid conditions. She is cachectic; she is on continuous oxygen at home secondary to COPD. She was admitted to [facility] after being found covered in urine and feces in her home; apparently the patient had been unable to get out of bed for 3 days secondary to her generalized weakness. There was a phone at the bedside, and the patient has a life alert button but did not use them. Given the patient's advanced age, complex medical history and overall progressive decline, she is high risk for ongoing complications and recurrent hospitalizations. . Code Status: No Code Plan * NO CODE * Per [place] statutes, in the absence of written advanced directives healthcare proxy decision-making falls to the patient's son. * Goals are aggressive up to the point of cardiopulmonary resuscitation. * Spoke with patient's son who confirmed NO CODE STATUS. Palliative care contact information provided to the patient and her son. * Discussed patient with bedside nurse, case management and Dr. Patterson. * Psychiatry was consulted to determine capacity. Patient refusing SNF placement, however family does not feel patient has insight or judgment related to her current medical conditions. * Symptom management: == Dyspnea: Patient with a history of COPD on home oxygen; she appears dyspneic with conversation at times. Chest x-ray showing COPD with persistent pleural parenchymal scarring at the left base On spur Fatimah, Symbicort, pro-air HFA, and albuterol nebulizer. == Debility: Patient initially stating she was able to ambulate independently and tried to the grocery store. However she was brought to the ED after being found covered in urine and feces because she was too weak to get out of bed For 3 days. PT evaluated the patient was found to have significant mobility deficits. Patient would benefit from SNF placement , at least briefly, for rehabilitation. Patient stating she would "rather than go to rehabilitation. == Dysphasia: Patient complaining of worsening dysphagia. May want to consider speech consult for swallow evaluation. * Palliative care will continue to follow this patient throughout his/her hospitalization to build rapport, assist with symptom management and goal clarification. . Thank you for the opportunity to participate in the care of Ms. Phillips. . Attestation To help prompt me to consider important information that might be impacting today's encounter and assessment, information from prior notes written by myself or my colleagues may have been "brought forward" into today's note. My signature on this note, however, is an attestation that I personally performed the exam, history, and/or decision-making noted today, and, unless otherwise indicated, the interactions with patient, family, and staff as well as the review of records all occurred today. I also attest that the listed assessment and stated plan reflect my best clinical judgment today based on the combination of historical information, prior notes, and today's exam/ interactions. When time spent is documented, it refers only to time spent today by the signer, or if indicated, combined time spent today by collaborating physician/nurse practitioner. . Marcella Sin Jan 14, 2018 12:40
[2018-01-14 16:00] VITALS: BP 107/65; PULSE 63; RESP 17; TEMP 95.3; O2SAT 95
--- NOTE | 2018-01-14 16:36 | HHI.PR ---
Subjective Remarks Nursing denies any deterioration since last night. When asked, patient affirms that she can handle specifically the chores of cooking and getting dressed all by herself. She thinks she is unable to go out and get the mail. Objective Vital Signs Date Time Temp Pulse Resp B/P (MAP) Pulse Ox O2 Delivery O2 Flow Rate FiO2 01/14/18 12:00 95.6 65 17 119/64 (82) 95 01/14/18 08:40 97 Nasal Cannula 2.50 01/14/18 08:30 100 Nasal Cannula 3.00 01/14/18 08:13 96.1 58 15 139/64 (89) 100 01/14/18 00:00 97.8 63 20 122/63 (82) 100 01/13/18 20:00 97.4 59 20 136/74 (94) 100 01/13/18 20:00 97.4 59 20 136/74 (94) 100 01/13/18 20:00 Nasal Cannula 3.00 01/13/18 17:55 177/86 (116) I/O 01/13/18 01/13/18 01/13/18 01/14/18 01/14/18 01/14/18 07:00 15:00 23:00 07:00 15:00 23:00 Intake Total 1220 ml 240 ml 360 ml 240 ml Balance 1220 ml 240 ml 360 ml 240 ml Intake Oral 220 ml 240 ml 360 ml 240 ml IV Total 1000 ml # Voids 2 2 2 2 # Bowel Movements 0 2 1 0 Result Diagram: 01/12/18 1651 01/13/18 0550 Objective Remarks Sitting up in bed, eating, no acute distress Lungs are clear bilaterally A/P Assessment and Plan 1. Generalized weakness, failure to thrive: continue pt/ot/st. pt refusing rehab placement. palliative consult placed earlier today. 2. Atrial fibrillation with RVR: Currently rate is controlled. Continue Cardizem. Monitor on telemetry. Continue Eliquis. 3. COPD: Continue DuoNeb, supplemental oxygen, Symbicort. Not in acute exacerbation. 4. Hypertension: Continue Cozaar. 5. GERD, dysphasia: Continue PPI. Consult patient's ship wirer. Patient has had weight loss over the past few years as well. 6. DVT prophylaxis: Eliquis. Cecilio Patterson MD Jan 14, 2018 16:36
[2018-01-14 19:30] VITALS: O2SAT 92
[2018-01-14 20:00] VITALS: BP 122/53; PULSE 67; RESP 20; TEMP 98.9; O2SAT 93
[2018-01-14] MEDS: LOSARTAN 50 MG TAB PO SCH (20:39)
[2018-01-15] VITALS: BP 133/57; PULSE 69; RESP 20; TEMP 97.7; O2SAT 93
[2018-01-15 08:00] VITALS: BP 138/79; PULSE 81; RESP 20; TEMP 96.2; O2SAT 92
--- NOTE | 2018-01-15 09:12 | HHI.PR ---
Objective Vitals Vital Signs Date Time Temp Pulse Resp B/P (MAP) Pulse Ox O2 Delivery O2 Flow Rate FiO2 01/15/18 08:00 96.2 81 20 138/79 (98) 92 01/15/18 00:00 97.7 69 20 133/57 (82) 93 01/14/18 20:00 98.9 67 20 122/53 (76) 93 01/14/18 19:30 92 Nasal Cannula 2.00 01/14/18 19:00 97 Nasal Cannula 2.50 01/14/18 16:00 95.3 63 17 107/65 (79) 95 01/14/18 12:00 95.6 65 17 119/64 (82) 95 I/O 01/14/18 01/14/18 01/14/18 01/15/18 01/15/18 01/15/18 06:59 14:59 22:59 06:59 14:59 22:59 Intake Total 240 ml 240 ml Balance 240 ml 240 ml Intake Oral 240 ml 240 ml # Voids 2 3 # Bowel Movements 0 0 Result Diagram: 01/12/18 1651 01/13/18 0550 A/P Problem List: (1) Atrial fibrillation with RVR ICD Code: I48.91 - Unspecified atrial fibrillation (2) Dysphagia ICD Code: R13.10 - Dysphagia, unspecified (3) GERD (gastroesophageal reflux disease) ICD Code: K21.9 - Gastro-esophageal reflux disease without esophagitis (4) Failure to thrive in adult ICD Code: R62.7 - Adult failure to thrive Status: Acute (5) Elevated troponin ICD Code: R74.8 - Abnormal levels of other serum enzymes Status: Acute (6) Oxygen dependent ICD Code: Z99.81 - Dependence on supplemental oxygen Status: Acute (7) COPD (chronic obstructive pulmonary disease) ICD Code: J44.9 - Chronic obstructive pulmonary disease Status: Acute (8) Coronary artery disease ICD Code: I25.10 - Atherosclerotic heart disease of [place] coronary artery without angina pectoris Status: Acute (9) Hypertension ICD Code: I10 - Essential (primary) hypertension Status: Acute Fazal Hernandez Jan 15, 2018 09:12
[2018-01-15] MEDS: ALBUTEROL SULFATE 90 MCG/ACT HFA 8 GM INHALER INH SCH (10:23)
[2018-01-15] MEDS: BUDESONIDE-FORMOTEROL 80/4.5 MCG INHALER INH SCH (10:23)
[2018-01-15] MEDS: DILTIAZEM-CD 240 MG CAP ER PO SCH (10:31)
[2018-01-15] MEDS: TIOTROPIUM BROMIDE 18 MCG INH INH SCH (10:31)
[2018-01-15] MEDS: APIXABAN 2.5 MG TABLET PO SCH (10:31)
[2018-01-15] MEDS: PANTOPRAZOLE SOD 40 MG DELAYED RELEASE TAB PO SCH (10:31)
[2018-01-15] MEDS: GABAPENTIN 300 MG CAP PO SCH (10:32)
[2018-01-15] MEDS: ASPIRIN EC 81 MG TABEC PO SCH (10:32)
[2018-01-15 12:00] VITALS: BP 127/71; PULSE 65; RESP 18; TEMP 96.6; O2SAT 94; O2SAT 95
--- NOTE | 2018-01-15 12:04 | PD.PSY.CON ---
Provisional Diagnosis Admission Date Jan 12, 2018 at 18:12 [place] I. Psychological factors affecting and other medical conditions, in this case COPD , HTN, generalized weakness [place] II. Deferred [place] III. COPD oxygen dependent, HTN, asthma, History of Present Illness Service Psychiatry Consult Requested By Medical team Reason for Consult Assessment decision-making capacity Primary Care Physician No Primary Care Physician HPI The patient is an 82-year-old woman, domiciled alone in [place], she is , without any previous psychiatric history, no previous psychiatric admissions, no previous suicidal attempts, medical history of COPD, A. fib, GERD hypertension, asthma, who was brought to the emergency department because of generalized weakness. Consulted to psychiatry to assess deceasing making capacity to refuse [facility]. On somatic evaluation today the patient is calm, cooperative, very pleasant. The patient says that she feels much better, and she just wants to go home. She says that she is planning to have people to come to her house to help her. She does not want to go to an [facility]. The patient is fully oriented 3, in cognitive assessment patient does not present any gross cognitive impairment. She understands and is able to verbalize the reason of her hospitalization, and verbalize a for understanding and appreciation of current medical problems. She denies depressive symptoms, she denies anxiety, she denies suicidal ideation, she denies homicidal ideation, she denies visual and auditory hallucinations. The patient denies the use of illegal drugs and alcohol. Review of Systems Constitutional: DENIES: Diaphoretic episodes, Fatigue, Fever, Weight gain, Weight loss, Chills, Dizziness, Change in appetite, Night Sweats Endocrine: DENIES: Abnorml menstrual pattern, Heat/cold intolerance, Polydipsia , Polyuria, Polyphagia Eyes: DENIES: Blurred vision, Diplopia, Eye inflammation, Eye pain, Vision loss , Photosensitivity, Double Vision Ears, nose, mouth, throat: DENIES: Tinnitus, Hearing loss, Vertigo, Nasal discharge, Oral lesions, Throat pain, Hoarseness, Ear Pain, Running Nose, Epistaxis, Sinus Pain, Toothache, Odynophagia Respiratory: DENIES: Apneas, Cough, Snoring, Wheezing, Hemoptysis, Sputum production, Shortness of breath Cardiovascular: DENIES: Chest pain, Palpitations, Syncope, Dyspnea on Exertion , PND, Lower Extremity Edema, Orthopnea, Claudication Gastrointestinal: DENIES: Abdominal pain, Black stools, Bloody stools, Constipation, Diarrhea, Nausea, Vomiting, Difficulty Swallowing, Anorexia Integumentary: DENIES: Abnormal pigmentation, Pruritus, Rash, Nail changes, Breast masses, Breast skin changes, Nipple discharge Hematologic/lymphatic: DENIES: Bruising, Lymphadenopathy Immunologic/allergic: DENIES: Eczema, Urticaria Neurologic: DENIES: Abnormal gait, Headache, Localized weakness, Paresthesias, Seizures, Speech Problems, Tremor, Poor Balance Psychiatric: DENIES: Anxiety, Confusion, Mood changes, Depression, Hallucinations, Agitation, Suicidal Ideation, Homicidal Ideation, Delusions Past Family Social History Coded Allergies: codeine (Unverified Allergy, Severe, 07/15/17) morphine (Unverified Allergy, Severe, 07/15/17) penicillin G (Unverified Allergy, Severe, 07/15/17) amiodarone (Unverified Adverse Reaction, Severe, THYROID STORM, 07/15/17) Uncoded Allergies: NICKEL (Adverse Reaction, Intermediate, SKIN ITCHES, BLISTERS, , 05/13/14) Reported Medications Diltiazem CD 24 HR (Diltiazem CD 24 HR) 240 Mg Caper, 240 MG PO DAILY, #30 CAP 0 Refills 01/12/18 Lansoprazole (Prevacid) 30 Mg Capdr, 30 MG PO DAILY, CAP 0 Refills 11/13/16 Losartan (Cozaar) 100 Mg Tab, 100 MG PO HS for Blood Pressure Management, #30 TAB 0 Refills 11/13/16 Lorazepam (Lorazepam) 0.5 Mg Tab, 0.5 MG PO BID Y for ANXIETY, TAB 0 Refills 11/13/16 Gabapentin (Gabapentin) 300 Mg Cap, 300 MG PO TID, #90 CAP 0 Refills 11/13/16 Ipratropium-Albuterol Inh (Combivent Respimat Inh) 20-100 Custodial/Act Aero, 1 PUFF INH QID for Asthma Management, #1 INHALER 0 Refills 11/13/[address] (Aspirin 81) 81 Mg Tabdr, 81 MG PO DAILY, TAB 0 Refills 11/13/16 Apixaban (Eliquis) 2.5 Mg Tab, 2.5 MG PO DAILY for Blood Clot Prevention, TAB 0 Refills 11/13/16 Albuterol 18 GM Inh (Ventolin Hfa 18 GM Inh) 90 Mcg/Act Aer, 2 PUFF INH Q4-6H Y for SHORTNESS OF BREATH, #1 INHALER 0 Refills 11/13/16 Albuterol Neb (Albuterol Neb) 2.5 Mg/0.5 Ml Neb, 2.5 MG NEB Q4HR NEB Y for SOB/ WHEEZING, EA Note: The Albuterol Sulfate Inhalation Solution is concentrated and must be diluted. Read complete instructions carefully before using. 11/13/16 Fluticasone-Salmeterol Inh (Advair Diskus Inh) 100-50 Mcg/Blist Aer, 1 PUFF INH BID for Asthma Management, #1 INHALER 0 Refills Rinse mouth after use. 11/13/16 Discontinued Scripts Prednisone (21) 10 mg tab Dose Pack (Prednisone (21) 10 mg tab Dose Pack) 10 Mg Pack, 10 MG PO DIRECTED for Inflammation, #1 DSPK 0 Refills Prov:Jocelyne Lockett MD 11/15/16 Current Medications Medications (Trade) Dose Ordered Sig/Gail Route Start Time Stop Time Status Last Admin (NS Flush) 2 ml UNSCH PRN IV FLUSH 01/12/18 16:30 (Trandate Inj) 10 mg Q20M PRN IV PUSH 01/13/18 00:45 01/13/18 01:18 (Albuterol Concentrated Neb) 2.5 mg Q4HR NEB PRN NEB 01/13/18 13:15 (Eliquis) 2.5 mg DAILY PO 01/13/18 13:15 01/15/18 10:31 (Ecotrin Ec) 81 mg DAILY PO 01/14/18 09:00 01/15/18 10:32 (Cardizem Cd) 240 mg DAILY PO 01/13/18 13:15 01/15/18 10:31 (Neurontin) 300 mg TID PO 01/13/18 18:00 01/15/18 10:32 (Ativan) 0.5 mg BID PRN PO 01/13/18 13:15 (Cozaar) 100 mg HS PO 01/13/18 21:00 01/14/18 20:39 (Symbicort 80-4.5 Mcg Inh) 2 puff BID INH 01/13/18 21:00 01/15/18 10:23 (Protonix) 40 mg DAILY PO 01/13/18 13:30 01/15/18 10:31 (Spiriva Inh) 18 mcg DAILY INH 01/14/18 09:00 01/15/18 10:31 (Proair Hfa Inh) 2 puff QID INH 01/13/18 18:00 01/15/18 10:23 Family Psych History no family psychiatric history Social History patient was born and raised in [place], she lives in [place] alone, she is , she has one son, her highest level of education is high school Patient's Strengths (min. 2) No previous psychiatric history, no evidence of dementia Physical Exam Vital Signs Vital Signs Date Time Temp Pulse Resp B/P (MAP) Pulse Ox O2 Delivery O2 Flow Rate FiO2 01/15/18 08:00 96.2 81 20 138/79 (98) 92 01/14/18 19:30 Nasal Cannula 2.00 I/O 01/15/18 01/15/18 01/16/18 08:00 16:00 00:00 Intake Total 240 ml Balance 240 ml Mental Status Examination Appearance: Appropriate Consciousness: Alert Orientation: x4 Motor Activity: Normal gait Speech: Unremarkable Language: Adequate Fund of Knowledge: Adequate Attention and Concentration: Adequate Memory: Unremarkable Mood: Appropriate Affect: Appropriate Thought Process & Associations: Intact Thought Content: Appropriate Hallucination Type: None Delusion Type: None Suicidal Ideation: No Suicidal Plan: No Suicidal Intention: No Homicidal Ideation: No Homicidal Plan: No Homicidal Intention: No Insight: Adequate Judgment: Adequate Assessment & Plan Problem List: (1) Psychological factors affecting medical condition ICD Codes: F54 - Psychological and behavioral factors associated with disorders or diseases classified elsewhere Assessment & Plan: On psychiatric evaluation today the patient does not present any acute depression, anxiety, david psychosis. She denies suicidal and homicidal ideation, she denies visual and auditory hallucinations. The patient is fully oriented 3, with any gross cognitive impairment present at the moment of this evaluation. The patient is able to verbalize a very good understanding and appreciation of current medical situation, medical conditions , and the choice to go back home and not going to an [facility] with the argument that she would find people to help her at home. At the moment of this evaluation the patient is found to have decision-making capacity to refuse [facility]. Brief supportive psychotherapy and psychoeducation provided. No psychotropics indicated at this moment. Consul appreciated. (2) Chronic respiratory failure ICD Codes: J96.10 - Chronic respiratory failure, unspecified whether with hypoxia or hypercapnia Status: Acute Assessment & Plan Estimated LOS: days Ronnie Palmer MD Jan 15, 2018 12:04
--- NOTE | 2018-01-15 14:06 | HHI.DCPOC ---
Discharge Care Plan Diagnosis: (1) Failure to thrive in adult (2) Oxygen dependent Goals to Promote Your Health * To prevent worsening of your condition and complications * To maintain your health at the optimal level Directions to Meet Your Goals Take your medications as prescribed Follow your dietary instruction Follow activity as directed Keep your appointments as scheduled Take your immunizations and boosters as scheduled If your symptoms worsen call your PCP, if no PCP go to Urgent Care Center or Emergency Room Smoking is Dangerous to Your Health. Avoid second hand smoke Call the 24-hour hour crisis hotline for domestic abuse at Fazal Hernandez Jan 15, 2018 14:06
--- NOTE | 2018-01-15 14:15 | HHI.DS ---
Discharge Summary Admission Date Jan 12, 2018 at 18:12 Discharge Date: Jan 15, 2018 Admitting Diagnosis failure to thrive, elevated troponin (1) Atrial fibrillation with RVR ICD Code: I48.91 - Unspecified atrial fibrillation (2) Dysphagia ICD Code: R13.10 - Dysphagia, unspecified (3) GERD (gastroesophageal reflux disease) ICD Code: K21.9 - Gastro-esophageal reflux disease without esophagitis (4) Failure to thrive in adult ICD Code: R62.7 - Adult failure to thrive Status: Acute (5) Elevated troponin ICD Code: R74.8 - Abnormal levels of other serum enzymes Status: Acute (6) Oxygen dependent ICD Code: Z99.81 - Dependence on supplemental oxygen Status: Acute (7) COPD (chronic obstructive pulmonary disease) ICD Code: J44.9 - Chronic obstructive pulmonary disease Status: Acute (8) Coronary artery disease ICD Code: I25.10 - Atherosclerotic heart disease of [place] coronary artery without angina pectoris Status: Acute (9) Hypertension ICD Code: I10 - Essential (primary) hypertension Status: Acute Procedures None Brief History - From Admission The patient is an 82-year-old female who was brought to the emergency department because of generalized weakness. She states that she has not been able to get herself out of bed to use the bathroom. She reported abdominal discomfort and reflux over the past few days. Denies nausea or vomiting. States that she had to have a bowel movement and could not get out of her bed, so she defecated in the bed. Upon EMS arrival, the patient's bed was covered in urine and feces. Apparently she has a neighbor who frequently checks on her , but he has been unable to do so due to a broken leg. Patient denies chest pain. She has chronic dyspnea and is oxygen dependent, on 4 L continuous at home. She states that she has had difficulty swallowing seems to be getting worse. She has had increasing reflux as well despite taking PPI. CBC/BMP: 01/12/18 1651 01/13/18 0550 Significant Findings Laboratory Tests Test 01/12/18 16:51 01/12/18 19:01 01/12/18 21:10 01/13/18 05:50 Neutrophils (%) (Auto) 77.1 % (16.0-70.0) Lymphocytes # (Auto) 0.9 TH/MM3 (1.0-4.8) Activated Partial Thromboplast Time 23.6 SEC (24.3-30.1) Blood Urea Nitrogen 30 MG/DL (7-18) 31 MG/DL (7-18) Aspartate Amino Transf (AST/SGOT) 64 U/L (15-37) 59 U/L (15-37) Alanine Aminotransferase (ALT/SGPT) 67 U/L (10-53) 69 U/L (10-53) Carbon Dioxide Level 33.6 MEQ/L (21.0-32.0) 36.0 MEQ/L (21.0-32.0) Estimat Glomerular Filtration Rate 59 ML/MIN (>89) 55 ML/MIN (>89) Troponin I 0.09 NG/ML (0.02-0.05) 0.10 NG/ML (0.02-0.05) Urine Ketones 15 mg/dL (NEG) Random Glucose 187 MG/DL (74-106) Anion Gap 3 MEQ/L (5-15) Imaging Last Impressions Head CT 01/13/18 0000 Signed Impressions: Service Date/Time: Saturday, January 13, 2018 01:05 - CONCLUSION: No acute disease. Allen Ward MD Chest X-Ray 01/12/18 0000 Signed Impressions: Service Date/Time: Friday, January 12, 2018 17:10 - CONCLUSION: 1. COPD with persistent pleural-parenchymal scarring in the left base. 2. No superimposed acute infiltrate. Jimmy Mcdonald MD Hospital Course This is an 82-year-old female who lives at home by herself who was originally brought to the hospital because of generalized weakness. As indicated by ER documentation that the patient usually has people that take care of her on a regular basis, however her neighbor that usually checks on her broken her leg. When someone did check on her they found her soiled in her own urine and feces and [facility] was called for evaluation. Patient was brought to the emergency department and recommended admission for failure to thrive and inability to care for self. The patient indicates that she had spoiled herself because she was constipated and took a laxative the night before and had an accident. Patient was admitted the hospital and she indicated that she would rather than go to a rehabilitation facility. Physical therapy evaluated patient and manage their during her stay in the hospital. Physical therapy recommended that the patient can go home with home health care. Occupational therapy was consulted and recommended OT at rehabilitation and patient may do best long-term and SENIOR CARE environment. However patient is refusing any facilities at this time. Palliative care was consulted , he was concerned that the patient is a status. They recommended that psychiatry evaluated the patient to determine capacity. Since patient is refusing rehabilitation placement and family does not feel that patient has insight or judgment related to the current medical conditions. Psychiatry evaluated the patient and indicated that there was not any gross cognitive impairment at the time of evaluation. The patient was able to verbalize very good understanding and appreciation of current medical situation, medical conditions and the choice to go back home and not going to an [facility]. At the time of evaluation the patient was found to have decision-making capacity to refuse [facility]. At the present time the patient is doing well. Denies any new complaints. She wants to get home today. Physical therapy still indicating that she can go home with home health care. Case management consulted and home health care has been arranged. Will plan discharge home with home health care once arrangements made. Pt Condition on Discharge: Fair Discharge Disposition: Disch w/ Home Health Serv Discharge Time: > 30 minutes Discharge Instructions DIET: Follow Instructions for: Heart Healthy Diet Activities you can perform: Regular-No Restrictions Activities to Avoid: Driving for 24 hrs Follow up Referrals: PCP Follow-up - 1 Week Continued Medications: Albuterol 18 GM Inh (Ventolin Hfa 18 GM Inh) 90 Mcg/Act Aer 2 PUFF INH Q4-6H PRN for SHORTNESS OF BREATH, #1 INHALER 0 Refills Albuterol Neb (Albuterol Neb) 2.5 Mg/0.5 Ml Neb 2.5 MG NEB Q4HR NEB PRN for SOB/WHEEZING, EA Note: The Albuterol Sulfate Inhalation Solution is concentrated and must be diluted. Read complete instructions carefully before using. Apixaban (Eliquis) 2.5 Mg Tab 2.5 MG PO DAILY for Blood Clot Prevention, TAB [address] (Aspirin 81) 81 Mg Tabdr 81 MG PO DAILY, TAB 0 Refills Diltiazem CD 24 HR (Diltiazem CD 24 HR) 240 Mg Caper 240 MG PO DAILY, #30 CAP 0 Refills Fluticasone-Salmeterol Inh (Advair Diskus Inh) 100-50 Mcg/Blist Aer 1 PUFF INH BID for Asthma Management, #1 INHALER 0 Refills Rinse mouth after use. Gabapentin (Gabapentin) 300 Mg Cap 300 MG PO TID, #90 CAP 0 Refills Ipratropium-Albuterol Inh (Combivent Respimat Inh) 20-100 Mcfp/Act Aero 1 PUFF INH QID for Asthma Management, #1 INHALER 0 Refills Lansoprazole (Prevacid) 30 Mg Capdr 30 MG PO DAILY, CAP 0 Refills Lorazepam (Lorazepam) 0.5 Mg Tab 0.5 MG PO BID PRN for ANXIETY, TAB 0 Refills Losartan (Cozaar) 100 Mg Tab 100 MG PO HS for Blood Pressure Management, #30 TAB 0 Refills Fazal Hernandez Jan 15, 2018 14:15
[2018-01-15 16:00] VITALS: BP 128/68; PULSE 70; RESP 18; TEMP 97; O2SAT 95
== END 2018-01-15 16:30 | disposition home health service (06) | DRG 641 ==
LOC: PHED 16:11 → PHEDA 18:12 → PH3B 01-13 02:50
PROVIDERS: ADMIT Hospitalist; ATTEND Hospitalist
DX: R62.7 Adult failure to thrive (principal); I48.91 Unspecified atrial fibrillation; Z99.81 Dependence on supplemental oxygen; J44.9 Chronic obstructive pulmonary disease, unspecified; R13.10 Dysphagia, unspecified; Z68.1 Body mass index [BMI] 19.9 or less, adult; R63.4 Abnormal weight loss; K21.9 Gastro-esophageal reflux disease without esophagitis; R74.8 Abnormal levels of other serum enzymes; I25.10 Atherosclerotic heart disease of native coronary artery without angina pectoris; I10 Essential (primary) hypertension; Z85.118 Personal history of other malignant neoplasm of bronchus and lung; M19.90 Unspecified osteoarthritis, unspecified site; E78.5 Hyperlipidemia, unspecified; Z79.02 Long term (current) use of antithrombotics/antiplatelets; Z79.82 Long term (current) use of aspirin; Z87.891 Personal history of nicotine dependence; R53.1 Weakness; F54 Psychological and behavioral factors associated with disorders or diseases classified elsewhere
CPT/HCPCS: 70450; 71045; 80053; 81001; 82550; 84484; 85025; 85610; 85730; 93005; 96360; J1650; J7030; J7050; P9612

== ENCOUNTER 2018-01-28 14:27 | Inpatient (IN) | payer MEDICARE ==
[2018-01-28] VITALS (7 sets, daily range): BP systolic 145–200; BP diastolic 66–90; PULSE 98–117; RESP 16–28; TEMP 97–98.5; O2SAT 92–96
[~2018-01-28 14:27] MED LIST changes: -CART240C PO; +DILT240C44 PO; -PRED10PA PO
[2018-01-28] MEDS: RESP: ALBUTEROL 2.5 MG/IPRATROPIUM 0.5 MG NEB (SCH) INH ×2 (14:42→14:43)
[2018-01-28] MEDS ORDERED: methylPREDNISolone SOD SUCC 125 MG/2 ML VIAL IV PUSH ONE (14:45)
[2018-01-28 15:02] LABS: AUTOMATED NEUTROPHIL # 22.8 TH/MM3 (1.8-7.7); BASOPHIL # 0.7 TH/MM3 (0-0.2); EOSINOPHIL % 0.1 % (0.0-4.0); HEMATOCRIT 38.6 % (35.0-46.0); HEMOGLOBIN 12.1 GM/DL (11.6-15.3); LYMPH % 2.4 % (9.0-44.0); LYMPHOCYTE # 0.6 TH/MM3 (1.0-4.8); MEAN CELL VOLUME 89.9 FL (80.0-100.0); MEAN CORPUSCULAR HEMOGLOBIN 28.1 PG (27.0-34.0); MEAN CORPUSCULAR HGB CONC 31.3 % (32.0-36.0); MEAN PLATELET VOLUME 9.8 FL (7.0-11.0); MONO % 2.4 % (0.0-8.0); MONOCYTE # 0.6 TH/MM3 (0-0.9); NEUT % 92.1 % (16.0-70.0); PLATELET COUNT 255 TH/MM3 (150-450); RED BLOOD COUNT 4.29 MIL/MM3 (4.00-5.30); RED CELL DISTRIBUTION WIDTH 15.4 % (11.6-17.2); WHITE BLOOD COUNT 24.7 TH/MM3 (4.0-11.0)
[2018-01-28 15:14] LABS: CHLORIDE 101 MEQ/L (98-107); SODIUM (NA) 140 MEQ/L (136-145)
[2018-01-28 15:17] LABS: CALCIUM 9.8 MG/DL (8.5-10.1)
[2018-01-28 15:18] LABS: ALBUMIN 3.3 GM/DL (3.4-5.0); BICARBONATE 35.1 MEQ/L (21.0-32.0); BLOOD UREA NITROGEN 25 MG/DL (7-18); GLUCOSE,RANDOM 111 MG/DL (74-106); INTERNATIONAL NORMALIZED RATIO 1.1 RATIO; MAGNESIUM 2.1 MG/DL (1.5-2.5); PROTHROMBIN TIME - PATIENT 10.7 SEC (9.8-11.6)
[2018-01-28 15:21] LABS: ALT (GPT) 22 U/L (10-53); AST (GOT) 21 U/L (15-37); CREATININE 0.89 MG/DL (0.50-1.00); GLOMERULAR FILTRATION RATE 61 ML/MIN (>89)
[2018-01-28 15:22] LABS: TOTAL BILIRUBIN ADULT 0.9 MG/DL (0.2-1.0); TOTAL PROTEIN 7.6 GM/DL (6.4-8.2)
[2018-01-28 15:23] LABS: ALKALINE PHOSPHATASE 109 U/L (45-117)
--- NOTE | 2018-01-28 15:23 | RADRPT ---
EXAM DATE/TIME: 01/28/2018 15:04 [facility] COMPARISON: CHEST SINGLE AP, January 12, 2018, 17:10. INDICATIONS : Cough MEDICAL HISTORY : None. Hypertension. Carcinoma, lung. SURGICAL HISTORY : None. ENCOUNTER: Initial ACUITY: 1 day PAIN SCORE: 0/10 LOCATION: Bilateral chest FINDINGS: Marked emphysematous changes are noted in previous resection on the left. Stable blunting left cultu re the esophagus. Marked hyperinflation. Cardiac silhouette is small. There is no pneumothorax. T here is no consolidation. CONCLUSION: Marked hyperinflation and emphysematous changes. Negative for infiltrate. Leland Frias MD FACR on January 28, 2018 at 15:21 Board Certified Radiologist. This report was verified electronically.
--- NOTE | 2018-01-28 16:01 | PD ---
HPI Chief Complaint: Respiratory Symptoms Time Seen by Provider: 14:33 Travel History International Travel<30 days: No Contact w/Intl Traveler<30days: No Traveled to known affect area: No History of Present Illness HPI This is an 82-year-old female who presents for difficulty breathing. She has had 2-3 days of nonproductive cough, increased work of breathing and wheezing. She usually uses 4 L of nasal cannula oxygen at all times. When EMS arrived, the patient had increased work of breathing, was "tripoding" and had decreased breath sounds bilaterally. She was given a single DuoNeb with improvement in oxygen saturation from 90% to 96%. Patient denies fever, chills, vomiting, diarrhea. Symptoms are moderate in severity. Onset gradual. She denies any chest pain. PFSH Past Medical History Hx Anticoagulant Therapy: Yes Arthritis: Yes Asthma: Yes Atrial Fibrillation: Yes Autoimmune Disease: No Blood Disorders: No Anxiety: No Depression: Yes Heart Rhythm Problems: Yes Cancer: Yes (LUNG CA L UPPER LOBECTOMY 2000, SKIN RIGHT ANKLE) Cardiac Catheterization: No Cardiovascular Problems: Yes High Cholesterol: Yes Chemotherapy: No Chest Pain: No Congestive Heart Failure: No COPD: Yes Cerebrovascular Accident: No Coronary Artery Disease: Yes Diabetes: No Diminished Hearing: No Endocrine: Yes Gastrointestinal Disorders: Yes (ACID REFLUX, CROFT'S ESOPHAGUS, POLYPS IN COLON) GERD: Yes Glaucoma: No Genitourinary: Yes Headaches: Yes Hepatitis: Yes (HEPATITIS A) Hiatal Hernia: No Heparin Induced Thrombocytopen: No Herniated Disk: Yes (CERVICAL ) Hypertension: Yes Immune Disorder: Yes (FIBROMYALGIA) Implanted Vascular Access Dvce: Yes Kidney Stones: Yes Medical other: No Musculoskeletal: Yes Neurologic: Yes Psychiatric: Yes Reproductive: No Respiratory: Yes Immunizations Current: Yes Migraines: No Myocardial Infarction: No Radiation Therapy: No Renal Failure: No Seizures: No Sickle Cell Disease: No Sleep Apnea: No Thyroid Disease: Yes Ulcer: No Tetanus Vaccination: Unknown ?: Not Menopausal: Yes : 1 Para: 1 Past Surgical History Abdominal Surgery: Yes (APPENDECTOMY, CHOLECYSTECTOMY) AICD: No Appendectomy: Yes (1961) Arteriovenous Shunt: No Body Medical Devices: L GREAT TOE, stent in stomach Cardiac Surgery: Yes (pacemaker/aicd) Cholecystectomy: Yes (1983) Coronary Artery Bypass Graft: No Ear Surgery: No Endocrine Surgery: Yes (PARTIAL THYROIDECTOMY FOR NODULE, 1997) Eye Surgery: Yes (BILATERAL CATARACTS REMOVED) Genitourinary Surgery: No Gynecologic Surgery: No Insulin Pump: No Neurologic Surgery: No Oral Surgery: No Pacemaker: No Thoracic Surgery: Yes (LEFT UPPER LUNG PARTIAL LOBECTOMY 2000) Other Surgery: Yes (thyroidectomy) Family History Family Myocardial Infarction: No Social History Alcohol Use: No Tobacco Use: No Substance Use: No Allergies-Medications (Allergen,Severity, Reaction): Coded Allergies: codeine (Unverified Allergy, Severe, gi upset, 01/28/18) morphine (Unverified Allergy, Severe, gi upset, 01/28/18) penicillin G (Unverified Allergy, Severe, itchy, 01/28/18) amiodarone (Unverified Adverse Reaction, Severe, THYROID STORM, 01/28/18) Uncoded Allergies: NICKEL (Adverse Reaction, Intermediate, SKIN ITCHES, BLISTERS, , 05/13/14) Reported Meds & Prescriptions Reported Meds & Active Scripts Active Reported Diltiazem CD 24 HR 240 Mg Caper 240 Mg PO DAILY Prevacid (Lansoprazole) 30 Mg Capdr 30 Mg PO DAILY Cozaar (Losartan Potassium) 100 Mg Tab 100 Mg PO HS Lorazepam 0.5 Mg Tab 0.5 Mg PO BID PRN Gabapentin 300 Mg Cap 300 Mg PO TID Combivent Respimat Inh (Ipratropium-Albuterol Inh) 20-100 Penit[facility]iary/Act Aero 1 Puff INH QID Aspirin 81 (Aspirin) 81 Mg Tabdr 81 Mg PO DAILY Eliquis (Apixaban) 2.5 Mg Tab 2.5 Mg PO DAILY Ventolin Hfa 18 GM Inh (Albuterol Sulfate) 90 Mcg/Act Aer 2 Puff INH Q4-6H PRN Albuterol Neb (Albuterol Sulfate) 2.5 Mg/0.5 Ml Neb 2.5 Mg NEB Q4HR NEB PRN Note: The Albuterol Sulfate Inhalation Solution is concentrated and must be diluted. Read complete instructions carefully before using. Advair Diskus Inh (Fluticasone-Salmeterol Inh) 100-50 Mcg/Blist Aer 1 Puff INH BID Rinse mouth after use. Review of Systems Except as stated in HPI: all other systems reviewed are Neg Physical Exam Narrative GENERAL: Alert, cachectic, chronically ill appearing patient resting on the bed with increased work of breathing. Vital Signs reviewed SKIN: Focused skin assessment warm/dry. HEAD: Atraumatic. Normocephalic. EYES: Pupils equal and round. No scleral icterus. No injection or drainage. ENT: No nasal bleeding or discharge. Mucous membranes pink and moist. NECK: Trachea midline. No JVD. Spontaneous, painless full range of motion with no meningismus CARDIOVASCULAR: Regular rate and rhythm. No murmur appreciated. Extremities warm and well perfused with bounding peripheral pulses RESPIRATORY: Increased work of breathing, forward dyspnea. Diminished breath sounds throughout with very faint end expiratory wheezes GASTROINTESTINAL: Abdomen soft, non-tender, nondistended. Normal bowel sounds. No rigid, rebound, guarding MUSCULOSKELETAL: No obvious deformities. No clubbing. No cyanosis. Mild symmetric bilateral lower extremity edema. Compartments are soft NEUROLOGICAL: Awake and alert. No obvious cranial nerve deficits. Motor grossly within normal limits. Normal speech. Sensation intact. Data Data Last Documented VS Vital Signs Date Time Temp Pulse Resp B/P (MAP) Pulse Ox O2 Delivery O2 Flow Rate FiO2 01/28/18 15:01 114 20 94 Nasal Cannula 3.00 01/28/18 14:35 98.5 145/81 (102) Orders Orders Complete Blood Count With Diff (01/28/18 14:34) Comprehensive Metabolic Panel (01/28/18 14:34) Prothrombin Time / Inr (Pt) (01/28/18 14:34) Act Partial Throm Time (Ptt) (01/28/18 14:34) Lactic Acid Sepsis Protocol (01/28/18 14:34) Magnesium (Mg) (01/28/18 14:34) Lipase (01/28/18 14:34) Urinalysis - C+S If Indicated (01/28/18 14:34) Blood Culture (01/28/18 14:34) Chest, Single Ap (01/28/18 14:34) Ecg Monitoring (01/28/18 14:34) Iv Access Insert/Monitor (01/28/18 14:34) Oximetry (01/28/18 14:34) Oxygen Administration (01/28/18 14:34) Methylprednisolone So Succ Inj (Solumedr (01/28/18 14:45) Albuterol-Ipratropium Neb (Duoneb Neb) (01/28/18 14:45) Influenzae A/B Antigen (01/28/18 14:35) Electrocardiogram (01/28/18 ) Oseltamivir (Tamiflu) (01/28/18 16:15) Vancomycin Inj (Vancomycin Inj) (01/28/18 16:15) Cefepime Inj (Maxipime Inj) (01/28/18 16:15) Sodium Chlor 0.9% 1000 Ml Inj (Ns 1000 M (01/28/18 16:10) Labs Laboratory Tests Test 01/28/18 14:35 01/28/18 14:50 White Blood Count 24.7 TH/MM3 Red Blood Count 4.29 MIL/MM3 Hemoglobin 12.1 GM/DL Hematocrit 38.6 % Mean Corpuscular Volume 89.9 FL Mean Corpuscular Hemoglobin 28.1 PG Mean Corpuscular Hemoglobin Concent 31.3 % Red Cell Distribution Width 15.4 % Platelet Count 255 TH/MM3 Mean Platelet Volume 9.8 FL Neutrophils (%) (Auto) 92.1 % Lymphocytes (%) (Auto) 2.4 % Monocytes (%) (Auto) 2.4 % Eosinophils (%) (Auto) 0.1 % Basophils (%) (Auto) 3.0 % Neutrophils # (Auto) 22.8 TH/MM3 Lymphocytes # (Auto) 0.6 TH/MM3 Monocytes # (Auto) 0.6 TH/MM3 Eosinophils # (Auto) 0.0 TH/MM3 Basophils # (Auto) 0.7 TH/MM3 CBC Comment DIFF FINAL Differential Comment Prothrombin Time 10.7 SEC Prothromb Time International Ratio 1.1 RATIO Activated Partial Thromboplast Time 27.1 SEC Blood Urea Nitrogen 25 MG/DL Creatinine 0.89 MG/DL Random Glucose 111 MG/DL Total Protein 7.6 GM/DL Albumin 3.3 GM/DL Calcium Level 9.8 MG/DL Magnesium Level 2.1 MG/DL Alkaline Phosphatase 109 U/L Aspartate Amino Transf (AST/SGOT) 21 U/L Alanine Aminotransferase (ALT/SGPT) 22 U/L Total Bilirubin 0.9 MG/DL Sodium Level 140 MEQ/L Potassium Level 5.1 MEQ/L Chloride Level 101 MEQ/L Carbon Dioxide Level 35.1 MEQ/L Anion Gap 4 MEQ/L Estimat Glomerular Filtration Rate 61 ML/MIN Lipase 67 U/L Lactic Acid Level 1.7 mmol/L MDM Medical Decision Making Medical Screen Exam Complete: Yes Emergency Medical Condition: Yes Medical Record Reviewed: Yes Interpretation(s) Laboratory Tests Test 01/28/18 14:35 01/28/18 14:50 White Blood Count 24.7 TH/MM3 Red Blood Count 4.29 MIL/MM3 Hemoglobin 12.1 GM/DL Hematocrit 38.6 % Mean Corpuscular Volume 89.9 FL Mean Corpuscular Hemoglobin 28.1 PG Mean Corpuscular Hemoglobin Concent 31.3 % Red Cell Distribution Width 15.4 % Platelet Count 255 TH/MM3 Mean Platelet Volume 9.8 FL Neutrophils (%) (Auto) 92.1 % Lymphocytes (%) (Auto) 2.4 % Monocytes (%) (Auto) 2.4 % Eosinophils (%) (Auto) 0.1 % Basophils (%) (Auto) 3.0 % Neutrophils # (Auto) 22.8 TH/MM3 Lymphocytes # (Auto) 0.6 TH/MM3 Monocytes # (Auto) 0.6 TH/MM3 Eosinophils # (Auto) 0.0 TH/MM3 Basophils # (Auto) 0.7 TH/MM3 CBC Comment DIFF FINAL Differential Comment Prothrombin Time 10.7 SEC Prothromb Time International Ratio 1.1 RATIO Activated Partial Thromboplast Time 27.1 SEC Blood Urea Nitrogen 25 MG/DL Creatinine 0.89 MG/DL Random Glucose 111 MG/DL Total Protein 7.6 GM/DL Albumin 3.3 GM/DL Calcium Level 9.8 MG/DL Magnesium Level 2.1 MG/DL Alkaline Phosphatase 109 U/L Aspartate Amino Transf (AST/SGOT) 21 U/L Alanine Aminotransferase (ALT/SGPT) 22 U/L Total Bilirubin 0.9 MG/DL Sodium Level 140 MEQ/L Potassium Level 5.1 MEQ/L Chloride Level 101 MEQ/L Carbon Dioxide Level 35.1 MEQ/L Anion Gap 4 MEQ/L Estimat Glomerular Filtration Rate 61 ML/MIN Lipase 67 U/L Lactic Acid Level 1.7 mmol/L Last 24 hours Impressions Chest X-Ray 01/28/18 5454 Signed Impressions: Service Date/Time: Sunday, January 28, 2018 15:04 - CONCLUSION: Marked hyperinflation and emphysematous changes. Negative for infiltrate. Leland Frias MD FACR Differential Diagnosis Sepsis, COPD exacerbation, bronchitis, pneumonia, influenza Narrative Course The patient was seen immediately upon arrival. She was placed on the watch assembler. IV access was established. EKG, chest x-ray, labs were performed. Patient was given IV fluids, broad-spectrum IV antibiotics and Tamiflu. She was given duo nebs and Solu-Medrol. Upon reexamination at 4:30 PM: She is speaking in full sentences now. Given her history of severe COPD, deconditioning and dehydration, plan for admission for further evaluation and care. Diagnosis Primary Impression: Sepsis Qualified Codes: A41.9 - Sepsis, unspecified organism Additional Impressions: Influenza Acute bronchitis Qualified Codes: J20.9 - Acute bronchitis, unspecified COPD exacerbation Admitting Information Admitting Physician Requests: it Vernell Briggs MD Jan 28, 2018 16:01
[2018-01-28] MEDS ORDERED: SODIUM CHLOR 0.9% 1000 ML INJ 1,000 ML IV SCH (16:10)
[2018-01-28] MEDS ORDERED: VANCOMYCIN INJ 1,000 MG in SODIUM CHLOR 0.9% 250 ML INJ 250 ML IV ONE (16:15)
[2018-01-28] MEDS ORDERED: CEFEPIME INJ 1,000 MG in SODIUM CHLORIDE 0.9% INJ 100 ML IV ONE (16:15)
[2018-01-28] MEDS ORDERED: OSELTAMIVIR PHOSPHATE 75 MG CAP PO ONE (16:15)
--- NOTE | 2018-01-28 16:44 | HHI.HP ---
[facility] Primary [facility] Physician Jena Greene MD Admission Diagnosis SEPSIS, INFLUENZA, ACUTE BRONCHITIS, ACUTE COPD Diagnoses: Chief Complaint: shortness of breath Travel History International Travel<30 Days: No Contact w/Intl Traveler <30 Da: No Traveled to Known Affected Are: No History of Present Illness 82-year-old white female being admitted for acute respiratory distress secondary to influenza. Patient herself is a poor historian, history is largely obtained from ER records. ER records state that the patient was noted by EVAC to be tripoding at her home, brought to the ED and after a few treatments she is still short of breath but no longer tripoding. In the emergency room she was noted to be saturating between 90-94% on 4 L which is what she allegedly wears at home. When asking the patient what happened, she says "my nurse was there". When asked what made her come to the emergency department, she says "my nurse was there". Patient seems to be falling asleep in my conversation with her. She was recently discharged where she was previously hospitalized for failure to thrive since she had to rely upon her neighbor to care for her and he got sick so she was found to be in a wasting state in bed. She was discharged home with home health. Review of Systems Except as stated in HPI: all other systems reviewed are Neg Past Family Social History Past Medical History Arthritis COPD History of lung cancer, left upper lobe Atrial fibrillation Coronary artery disease GERD, Jhaveri's esophagus History of hepatitis A Fibromyalgia History of kidney stones Hyperlipidemia Past Surgical History Appendectomy Cholecystectomy Partial thyroidectomy 1997 Bilateral cataract surgery Left upper lung partial lobectomy 2000 Right wrist surgery Left great toe surgery Allergies: Coded Allergies: codeine (Unverified Allergy, Severe, gi upset, 01/28/18) morphine (Unverified Allergy, Severe, gi upset, 01/28/18) penicillin G (Unverified Allergy, Severe, itchy, 01/28/18) amiodarone (Unverified Adverse Reaction, Severe, THYROID STORM, 01/28/18) Uncoded Allergies: NICKEL (Adverse Reaction, Intermediate, SKIN ITCHES, BLISTERS, , 05/13/14) Physical Exam Vital Signs Vital Signs Date Time Temp Pulse Resp B/P (MAP) Pulse Ox O2 Delivery O2 Flow Rate FiO2 01/28/18 15:01 114 20 94 Nasal Cannula 3.00 01/28/18 14:45 94 Nasal Cannula 3.00 01/28/18 14:35 98.5 114 20 145/81 (102) 94 01/28/18 14:35 94 01/28/18 14:35 94 Nasal Cannula 3.00 Physical Exam VS: afebrile GENERAL: Lying in bed, will arouse upon prompting, but will have very slow responses to my questions SKIN: Warm and dry. EYES: Pupils equal and round. No scleral icterus. No injection or drainage. ENT: No nasal bleeding or discharge. Mucous membranes pink and moist. CARDIOVASCULAR: Regular rate and rhythm. no murmurs RESPIRATORY: Mildly labored respiratory effort, diminished breath sounds in bilateral bases with no wheezing or crackles or rales heard GASTROINTESTINAL: Abdomen soft, non-tender, nondistended. Extremities: No clubbing, cyanosis, or edema. No obvious deformities. MUSCULOSKELETAL: thin muscle bulk and tone for age and habitus NEUROLOGICAL: Awake and alert. No obvious cranial nerve deficits. No facial droop nor slurred speech noted. PSYCHIATRIC: Appropriate mood and affect; insight and judgment normal. Laboratory Laboratory Tests Test 01/28/18 14:35 01/28/18 14:50 White Blood Count 24.7 Red Blood Count 4.29 Hemoglobin 12.1 Hematocrit 38.6 Mean Corpuscular Volume 89.9 Mean Corpuscular Hemoglobin 28.1 Mean Corpuscular Hemoglobin Concent 31.3 Red Cell Distribution Width 15.4 Platelet Count 255 Mean Platelet Volume 9.8 Neutrophils (%) (Auto) 92.1 Lymphocytes (%) (Auto) 2.4 Monocytes (%) (Auto) 2.4 Eosinophils (%) (Auto) 0.1 Basophils (%) (Auto) 3.0 Neutrophils # (Auto) 22.8 Lymphocytes # (Auto) 0.6 Monocytes # (Auto) 0.6 Eosinophils # (Auto) 0.0 Basophils # (Auto) 0.7 CBC Comment DIFF FINAL Differential Comment Prothrombin Time 10.7 Prothromb Time International Ratio 1.1 Activated Partial Thromboplast Time 27.1 Blood Urea Nitrogen 25 Creatinine 0.89 Random Glucose 111 Total Protein 7.6 Albumin 3.3 Calcium Level 9.8 Magnesium Level 2.1 Alkaline Phosphatase 109 Aspartate Amino Transf (AST/SGOT) 21 Alanine Aminotransferase (ALT/SGPT) 22 Total Bilirubin 0.9 Sodium Level 140 Potassium Level 5.1 Chloride Level 101 Carbon Dioxide Level 35.1 Anion Gap 4 Estimat Glomerular Filtration Rate 61 Lipase 67 Lactic Acid Level 1.7 Date/Time Source Procedure Growth Status 01/28/18 14:55 Blood Peripheral Aerobic Blood Culture Pending Received 01/28/18 14:55 Blood Peripheral Anaerobic Blood Culture Pending Received 01/28/18 15:15 Nasal Aspirate Influenza Types A,B Antigen (JAMA) - Final Positive For Flu A Antigen Complete Result Diagram: 01/28/18 1435 01/28/18 1435 Imaging Last Impressions Chest X-Ray 01/28/18 1434 Signed Impressions: Service Date/Time: Sunday, January 28, 2018 15:04 - CONCLUSION: Marked hyperinflation and emphysematous changes. Negative for infiltrate. Leland Frias MD FACR Caprini VTE Risk Assessment Caprini VTE Risk Assessment: Mod/High Risk (score >= 2) Caprini Risk Assessment Model Point Value = 1 Point Value = 2 Point Value = 3 Point Value = 5 Age 41-60 Minor surgery BMI > 25 kg/m2 Swollen legs Varicose veins or History of unexplained or recurrent spontaneous Oral contraceptives or hormone replacement Sepsis (< 1 month) Serious lung disease, including pneumonia (< 1 month) Abnormal pulmonary function Acute myocardial infarction Congestive heart failure (< 1 month) History of inflammatory bowel disease Medical patient at bed rest Age 61-74 Arthroscopic surgery Major open surgery (> 45 min) Laparoscopic surgery (> 45 min) Malignancy Confined to bed (> 72 hours) Immobilizing plaster cast Central venous access Age >= 75 History of VTE Family history of VTE Factor V Leiden Prothrombin [id number] Lupus anticoagulant Anticardiolipin antibodies Elevated serum homocysteine Heparin-induced thrombocytopenia Other congenital or acquired thrombophilia Stroke (< 1 month) Elective arthroplasty Hip, pelvis, or leg fracture Acute spinal cord injury (< 1 month) Prophylaxis Regimen Total Risk Factor Score Risk Level Prophylaxis Regimen 0-1 Low Early ambulation 2 Moderate Order ONE of the following: *Sequential Compression Device (SCD) *Heparin 5000 units SQ BID 3-4 Higher Order ONE of the following medications: *Heparin 5000 units SQ TID *Enoxaparin/Lovenox 40 mg SQ daily (WT < 150 kg, CrCl > 30 mL/min) *Enoxaparin/Lovenox 30 mg SQ daily (WT < 150 kg, CrCl > 10-29 mL/min) *Enoxaparin/Lovenox 30 mg SQ BID (WT < 150 kg, CrCl > 30 mL/min) AND/OR *Sequential Compression Device (SCD) 5 or more Highest Order ONE of the following medications: *Heparin 5000 units SQ TID (Preferred with Epidurals) *Enoxaparin/Lovenox 40 mg SQ daily (WT < 150 kg, CrCl > 30 mL/min) *Enoxaparin/Lovenox 30 mg SQ daily (WT < 150 kg, CrCl > 10-29 mL/min) *Enoxaparin/Lovenox 30 mg SQ BID (WT < 150 kg, CrCl > 30 mL/min) AND *Sequential Compression Device (SCD) Assessment and Plan Assessment and Plan Acute respiratory distress secondary to influenza -Continue Tamiflu. Continue antibiotics that were started in the emergency room , obtain pro calcitonin, pro calcitonin is negative we will discontinue antibiotics unless pt fails to show improvement. Sepsis 2/2 influenza - blood cultures drawn, LA wnl, IVFs, CXR which I independently reviewed shows no acute infiltrates Chronic hypoxic respiratory failure secondary to COPD - Continue DuoNebs and inhalers, supplemental oxygen Atrial fibrillation - Continue Cardizem and Eliquis. Hypertension - Continue Cozaar. GERD - Continue PPI Physician Certification 2 Midnight Certification Type: Admission for Inpatient Services Order for Inpatient Services The services are ordered in accordance with Medicare regulations or non- Medicare payer requirements, as applicable. In the case of services not specified as inpatient-only, they are appropriately provided as inpatient services in accordance with the 2-midnight benchmark. Estimated LOS (days): 3 3 days is the estimated time the patient will need to remain in the hospital, assuming treatment plan goals are met and no additional complications. Post-Hospital Plan: Not yet determined Cecilio Patterson MD Jan 28, 2018 16:44
[2018-01-28] MEDS ORDERED: LORazepam 0.5 MG TAB PO PRN (17:45)
[2018-01-28] MEDS ORDERED: NON-FORMULARY DRUG (Ipratropium-Albuterol Inh (Combivent Respimat Inh) 1 PUFF) INH SCH (18:00)
[2018-01-28] MEDS ORDERED: ALBUTEROL SULFATE 90 MCG/ACT HFA 8 GM INHALER INH SCH (21:00)
[2018-01-28] MEDS: LOSARTAN 50 MG TAB PO SCH (21:35)
[2018-01-28] MEDS: BUDESONIDE-FORMOTEROL 80/4.5 MCG INHALER INH SCH (21:35)
[2018-01-29] VITALS (12 sets, daily range): BP systolic 133–180; BP diastolic 61–85; PULSE 97–117; RESP 16–28; TEMP 97–99.1; O2SAT 91–96
[2018-01-29 06:07] LABS: BASOPHIL % 0.1 % (0.0-2.0); EOSINOPHIL % 0.1 % (0.0-4.0); HEMOGLOBIN 11.5 GM/DL (11.6-15.3); LYMPH % 2.5 % (9.0-44.0); LYMPHOCYTE # 0.5 TH/MM3 (1.0-4.8); MEAN CELL VOLUME 88.4 FL (80.0-100.0); MEAN CORPUSCULAR HEMOGLOBIN 28.9 PG (27.0-34.0); MEAN CORPUSCULAR HGB CONC 32.7 % (32.0-36.0); MEAN PLATELET VOLUME 9.8 FL (7.0-11.0); MONO % 1.5 % (0.0-8.0); MONOCYTE # 0.3 TH/MM3 (0-0.9); NEUT % 95.8 % (16.0-70.0); PLATELET COUNT 243 TH/MM3 (150-450); RED BLOOD COUNT 3.96 MIL/MM3 (4.00-5.30); RED CELL DISTRIBUTION WIDTH 15.3 % (11.6-17.2); WHITE BLOOD COUNT 20.8 TH/MM3 (4.0-11.0)
[2018-01-29] MEDS: BUDESONIDE-FORMOTEROL 80/4.5 MCG INHALER INH SCH ×2 (08:54→22:07)
[2018-01-29] MEDS: ASPIRIN EC 81 MG TABEC PO SCH (08:56)
[2018-01-29] MEDS: DILTIAZEM-CD 240 MG CAP ER PO SCH (08:56)
[2018-01-29] MEDS: PANTOPRAZOLE SOD 40 MG DELAYED RELEASE TAB PO SCH (08:56)
[2018-01-29] MEDS: OSELTAMIVIR PHOSPHATE 75 MG CAP PO SCH ×2 (08:56→20:10)
[2018-01-29] MEDS: TIOTROPIUM BROMIDE 18 MCG INH INH SCH (08:57)
[2018-01-29] MEDS: APIXABAN 2.5 MG TABLET PO SCH (08:57)
--- NOTE | 2018-01-29 11:18 | EKG ---
Date Performed: 01/28/2018 Time Performed: 16:11:00 PTAGE: 82 years EKG: ECTOPIC ATRIAL TACHYCARDIA WITH OCCASIONAL SUPRAVENTRICULAR PREMATURE COMPLEXES LEFT ATRIAL ENLARGEMENT LEFT VENTRICULAR HYPERTROPHY AND ST-T CHANGE ABNORMAL ECG PREVIOUS TRACING : 01/12/2018 16.52 When compared to the prior EKG, previously seen PVCs in a b igeminal pattern are no longer present. There is now evidence of ectopic atrial tachycardia. DOCTOR: Karen Enriquez Interpretating Date/Time 01/29/2018 11:15:39
--- NOTE | 2018-01-29 13:57 | HHI.PR ---
Subjective Remarks Nursing denies any deterioration since last night. Patient herself seems to be more awake and alert today, says she is still short of breath. Objective Vital Signs Date Time Temp Pulse Resp B/P (MAP) Pulse Ox O2 Delivery O2 Flow Rate FiO2 01/29/18 11:50 98.7 105 28 157/72 (100) 91 01/29/18 10:39 162/78 (106) 01/29/18 08:22 93 Nasal Cannula 4.00 01/29/18 08:00 112 01/29/18 07:50 99.1 117 20 180/85 (116) 91 01/29/18 04:00 97.0 99 16 134/68 (90) 96 01/29/18 01:10 93 Nasal Cannula 4.00 01/29/18 00:00 97.1 98 16 133/61 (85) 94 01/28/18 23:00 98 01/28/18 20:00 97.0 110 16 162/75 (104) 92 01/28/18 20:00 97.0 110 16 162/75 (104) 92 01/28/18 18:43 109 175/80 (111) 01/28/18 18:26 97.1 117 28 200/90 (126) 96 01/28/18 17:15 107 18 160/66 (97) 94 Nasal Cannula 3.00 01/28/18 15:01 114 20 94 Nasal Cannula 3.00 01/28/18 14:45 94 Nasal Cannula 3.00 01/28/18 14:35 98.5 114 20 145/81 (102) 94 01/28/18 14:35 94 01/28/18 14:35 94 Nasal Cannula 3.00 I/O 01/28/18 01/28/18 01/28/18 01/29/18 01/29/18 01/29/18 07:00 15:00 23:00 07:00 15:00 23:00 Intake Total 1350 ml 240 ml Balance 1350 ml 240 ml Intake Oral 240 ml IV Total 1350 ml # Voids 5 # Bowel Movements 1 Result Diagram: 01/29/18 8298 01/28/18 8690 Objective Remarks Appears much more awake today, is able to identify that she is at [place] but when asked month and year she has no response and appears to space out Diminished breath sounds bilaterally that are coarse otherwise, is pursing her lips, has a very mild respiratory labored effort otherwise, no cyanosis A/P Assessment and Plan Acute respiratory distress secondary to influenza -Continue Tamiflu. Continue antibiotics that were started in the emergency room , pro calcitonin pending, if pro calcitonin is negative we will discontinue antibiotics unless pt fails to show improvement. Sepsis 2/2 influenza - blood cultures drawn, LA wnl, IVFs, CXR which I independently reviewed shows no acute infiltrates Chronic hypoxic respiratory failure secondary to COPD - Continue DuoNebs and inhalers, supplemental oxygen Atrial fibrillation - Continue Cardizem and Eliquis. Hypertension - Continue Cozaar. GERD - Continue PPI Cecilio Patterson MD Jan 29, 2018 13:57
[2018-01-29] MEDS ORDERED: ONDANSETRON ODT 4 MG TAB PO PRN (14:00)
[2018-01-29] MEDS ORDERED: RESP: ALBUTEROL 2.5 MG/IPRATROPIUM 0.5 MG NEB (PRN) NEB (20:00)
[2018-01-29] MEDS: LOSARTAN 50 MG TAB PO SCH (20:10)
[2018-01-29] MEDS: RESP: ALBUTEROL 2.5 MG/IPRATROPIUM 0.5 MG NEB (SCH) NEB (20:33)
[2018-01-30] VITALS (9 sets, daily range): BP systolic 93–134; BP diastolic 47–69; PULSE 72–134; RESP 14–21; TEMP 96.1–99.6; O2SAT 90–95
[2018-01-30] MEDS ORDERED: SODIUM CHLORID 0.9% 500 ML INJ 500 ML IV ONE (00:30)
[2018-01-30 06:41] LABS: AUTOMATED NEUTROPHIL # 12.5 TH/MM3 (1.8-7.7); BASOPHIL % 0.2 % (0.0-2.0); EOSINOPHIL # 0.1 TH/MM3 (0-0.4); EOSINOPHIL % 0.7 % (0.0-4.0); HEMATOCRIT 31.9 % (35.0-46.0); HEMOGLOBIN 10.1 GM/DL (11.6-15.3); LYMPHOCYTE # 0.9 TH/MM3 (1.0-4.8); MEAN CELL VOLUME 88.7 FL (80.0-100.0); MEAN CORPUSCULAR HEMOGLOBIN 28.2 PG (27.0-34.0); MEAN CORPUSCULAR HGB CONC 31.8 % (32.0-36.0); MEAN PLATELET VOLUME 9.3 FL (7.0-11.0); MONO % 6.7 % (0.0-8.0); NEUT % 86.4 % (16.0-70.0); PLATELET COUNT 271 TH/MM3 (150-450); RED CELL DISTRIBUTION WIDTH 15.4 % (11.6-17.2); WHITE BLOOD COUNT 14.5 TH/MM3 (4.0-11.0)
[2018-01-30] MEDS: RESP: ALBUTEROL 2.5 MG/IPRATROPIUM 0.5 MG NEB (SCH) NEB ×3 (07:52→19:17)
[2018-01-30] MEDS: PANTOPRAZOLE SOD 40 MG DELAYED RELEASE TAB PO SCH (08:15)
[2018-01-30] MEDS: TIOTROPIUM BROMIDE 18 MCG INH INH SCH (08:15)
[2018-01-30] MEDS: BUDESONIDE-FORMOTEROL 80/4.5 MCG INHALER INH SCH ×2 (08:15→20:49)
[2018-01-30] MEDS: DILTIAZEM-CD 240 MG CAP ER PO SCH (08:15)
[2018-01-30] MEDS: APIXABAN 2.5 MG TABLET PO SCH (08:16)
[2018-01-30] MEDS: ASPIRIN EC 81 MG TABEC PO SCH (08:16)
[2018-01-30] MEDS: OSELTAMIVIR PHOSPHATE 75 MG CAP PO SCH ×2 (08:16→20:47)
--- NOTE | 2018-01-30 14:56 | HHI.PR ---
Subjective Remarks Patient seen and evaluated today in follow-up for respiratory failure secondary COPD and influenza a Overall doing better. Objective Vitals Vital Signs Date Time Temp Pulse Resp B/P (MAP) Pulse Ox O2 Delivery O2 Flow Rate FiO2 01/30/18 12:00 98.7 80 16 120/55 (76) 93 01/30/18 08:22 95 Nasal Cannula 4.00 01/30/18 08:00 96.1 100 18 120/69 (86) 93 01/30/18 08:00 83 01/30/18 04:00 97.1 102 20 102/56 (71) 90 01/30/18 00:02 97.2 134 21 93/68 (76) 90 01/29/18 20:33 93 Nasal Cannula 4.00 01/29/18 20:00 97.5 106 16 162/66 (98) 93 01/29/18 15:50 98.3 97 20 151/75 (100) 94 01/29/18 15:00 98 I/O 01/29/18 01/29/18 01/29/18 01/30/18 01/30/18 01/30/18 07:00 15:00 23:00 07:00 15:00 23:00 Intake Total 240 ml 563 ml 740 ml Output Total 4 ml Balance 240 ml 559 ml 740 ml Intake Oral 240 ml 563 ml 240 ml IV Total 500 ml Output Urine Total 4 ml # Voids 5 # Bowel Movements 1 0 Result Diagram: 01/30/18 0533 01/28/18 1435 A/P Problem List: (1) COPD exacerbation ICD Code: J44.1 - Chronic obstructive pulmonary disease with (acute) exacerbation Status: Acute Plan: Continue with liberalized bronchial dilators, and oral prednisone On home O2 (2) Influenza ICD Code: J11.1 - Influenza due to unidentified influenza virus with other respiratory manifestations Status: Acute Plan: Continue with Tamiflu Bronchodilators by nebulizer as needed (3) Atrial fibrillation with RVR ICD Code: I48.91 - Unspecified atrial fibrillation Plan: continue with Cardizem and Eliquis Add beta-moy If needed however heart rate appears to have improved Discharge Planning To correction facility at discharge Discussed with son CODE STATUS is DNR Aubrie Quiroz MD Jan 30, 2018 14:56
[2018-01-30] MEDS: predniSONE 20 MG TAB PO SCH ×2 (15:23→20:47)
[2018-01-30] MEDS: LOSARTAN 50 MG TAB PO SCH (20:47)
[2018-01-31] VITALS (8 sets, daily range): BP systolic 133–167; BP diastolic 56–92; PULSE 73–101; RESP 14–20; TEMP 97.7–99.4; O2SAT 91–97
[2018-01-31] MEDS: RESP: ALBUTEROL 2.5 MG/IPRATROPIUM 0.5 MG NEB (SCH) NEB ×3 (07:32→20:08)
[2018-01-31] MEDS: APIXABAN 2.5 MG TABLET PO SCH (09:35)
[2018-01-31] MEDS: predniSONE 20 MG TAB PO SCH ×2 (09:35→20:25)
[2018-01-31] MEDS: DILTIAZEM-CD 240 MG CAP ER PO SCH (09:35)
[2018-01-31] MEDS: ASPIRIN EC 81 MG TABEC PO SCH (09:35)
[2018-01-31] MEDS: OSELTAMIVIR PHOSPHATE 75 MG CAP PO SCH ×2 (09:35→20:25)
[2018-01-31] MEDS: BUDESONIDE-FORMOTEROL 80/4.5 MCG INHALER INH SCH ×2 (09:35→20:25)
[2018-01-31] MEDS: TIOTROPIUM BROMIDE 18 MCG INH INH SCH (09:35)
[2018-01-31] MEDS: PANTOPRAZOLE SOD 40 MG DELAYED RELEASE TAB PO SCH (09:35)
[2018-01-31] MEDS ORDERED: methylPREDNISolone SOD SUCC 125 MG/2 ML VIAL IV PUSH ONE (11:00)
[2018-01-31] MEDS ORDERED: OSEL75 PO (13:57)
[2018-01-31] MEDS ORDERED: PRED10PA PO (13:57)
[2018-01-31] MEDS ORDERED: Albuterol-Ipratropium Neb NEB (13:57)
--- NOTE | 2018-01-31 13:58 | HHI.DCPOC ---
Discharge Care Plan Diagnosis: (1) Atrial fibrillation with RVR (2) COPD exacerbation (3) Sepsis (4) Influenza Goals to Promote Your Health * To prevent worsening of your condition and complications * To maintain your health at the optimal level Directions to Meet Your Goals Take your medications as prescribed Follow your dietary instruction Follow activity as directed Keep your appointments as scheduled Take your immunizations and boosters as scheduled If your symptoms worsen call your PCP, if no PCP go to Urgent Care Center or Emergency Room Smoking is Dangerous to Your Health. Avoid second hand smoke Call the 24-hour hour crisis hotline for domestic abuse at Aubrie Quiroz MD Jan 31, 2018 13:58
--- NOTE | 2018-01-31 14:00 | HHI.PR ---
Subjective Remarks patient seen today in follow-up for COPD exacerbation with influenza. About at baseline today. No new complaints. Patient seen with respiratory team. Discharge plans discussed with patient Objective Vitals Vital Signs Date Time Temp Pulse Resp B/P (MAP) Pulse Ox O2 Delivery O2 Flow Rate FiO2 01/31/18 08:53 98.5 95 15 151/56 (87) 92 01/31/18 07:34 97 Nasal Cannula 6.00 01/31/18 04:00 98.6 96 20 165/92 (116) 91 01/31/18 00:00 99.4 73 20 133/60 (84) 92 01/30/18 23:54 92 Nasal Cannula 6.00 01/30/18 20:00 99.6 94 20 134/63 (86) 91 01/30/18 19:17 91 Nasal Cannula 4.00 01/30/18 16:00 98.8 72 14 114/47 (69) 92 I/O 01/30/18 01/30/18 01/30/18 01/31/18 01/31/18 01/31/18 06:59 14:59 22:59 06:59 14:59 22:59 Intake Total 740 ml 457 ml 60 ml Balance 740 ml 457 ml 60 ml Intake Oral 240 ml 457 ml 60 ml IV Total 500 ml # Voids 3 # Bowel Movements 0 Result Diagram: 01/30/18 0533 01/28/18 1435 Objective Remarks GENERAL: This is a well-nourished, well-developed patient, thin female with nebulizer treatment CARDIOVASCULAR: Regular rate and rhythm without murmurs, gallops, or rubs. RESPIRATORY: Decreased airflow bilaterally at baseline GASTROINTESTINAL: Abdomen soft, non-tender, nondistended. Normal active bowel sounds MUSCULOSKELETAL: Extremities without clubbing, cyanosis, or edema. NEURO: Alert & Oriented x4 to person, place, time, situation. Moves all ext x4 A/P Problem List: (1) COPD exacerbation ICD Code: J44.1 - Chronic obstructive pulmonary disease with (acute) exacerbation Status: Acute Plan: Continue with liberalized bronchial dilators, and oral prednisone On home O2 at 4 L (2) Influenza ICD Code: J11.1 - Influenza due to unidentified influenza virus with other respiratory manifestations Status: Acute Plan: Continue with Tamiflu Bronchodilators by nebulizer as needed (3) Atrial fibrillation with RVR ICD Code: I48.91 - Unspecified atrial fibrillation Plan: continue with Cardizem and Eliquis Add beta-moy If needed however heart rate appears to have improved Discharge Planning To retirement facility at discharge Discussed with son CODE STATUS is DNR Aubrie Quiroz MD Jan 31, 2018 14:00
[2018-01-31] MEDS: LOSARTAN 50 MG TAB PO SCH (20:29)
[2018-02-01 01:01] VITALS: BP 136/72; PULSE 96; RESP 14; TEMP 98; O2SAT 93
[2018-02-01] MEDS: RESP: ALBUTEROL 2.5 MG/IPRATROPIUM 0.5 MG NEB (SCH) NEB (07:21)
[2018-02-01 07:22] VITALS: O2SAT 95
[2018-02-01 07:50] VITALS: BP 169/65; PULSE 81; RESP 20; TEMP 96.4; O2SAT 93
--- NOTE | 2018-02-01 08:31 | HHI.DS ---
Discharge Summary Admission Date Jan 28, 2018 at 16:42 Discharge Date: Feb 01, 2018 Admitting Diagnosis SEPSIS, INFLUENZA, ACUTE BRONCHITIS, ACUTE COPD (1) COPD exacerbation ICD Code: J44.1 - Chronic obstructive pulmonary disease with (acute) exacerbation Status: Acute (2) Influenza ICD Code: J11.1 - Influenza due to unidentified influenza virus with other respiratory manifestations Status: Acute (3) Atrial fibrillation with RVR ICD Code: I48.91 - Unspecified atrial fibrillation Procedures None Brief History - From Admission 82-year-old white female being admitted for acute respiratory distress secondary to influenza. Patient herself is a poor historian, history is largely obtained from ER records. ER records state that the patient was noted by EVAC to be tripoding at her home, brought to the ED and after a few treatments she is still short of breath but no longer tripoding. In the emergency room she was noted to be saturating between 90-94% on 4 L which is what she allegedly wears at home. When asking the patient what happened, she says "my nurse was there". When asked what made her come to the emergency department, she says "my nurse was there". Patient seems to be falling asleep in my conversation with her. She was recently discharged where she was previously hospitalized for failure to thrive since she had to rely upon her neighbor to care for her and he got sick so she was found to be in a wasting state in bed. She was discharged home with home health. CBC/BMP: 01/30/18 0533 01/28/18 1435 Significant Findings Laboratory Tests Test 01/30/18 05:33 White Blood Count 14.5 TH/MM3 (4.0-11.0) Red Blood Count 3.60 MIL/MM3 (4.00-5.30) Hemoglobin 10.1 GM/DL (11.6-15.3) Hematocrit 31.9 % (35.0-46.0) Mean Corpuscular Hemoglobin Concent 31.8 % (32.0-36.0) Neutrophils (%) (Auto) 86.4 % (16.0-70.0) Lymphocytes (%) (Auto) 6.0 % (9.0-44.0) Neutrophils # (Auto) 12.5 TH/MM3 (1.8-7.7) Lymphocytes # (Auto) 0.9 TH/MM3 (1.0-4.8) Monocytes # (Auto) 1.0 TH/MM3 (0-0.9) Imaging Last Impressions Chest X-Ray 01/28/18 1434 Signed Impressions: Service Date/Time: Sunday, January 28, 2018 15:04 - CONCLUSION: Marked hyperinflation and emphysematous changes. Negative for infiltrate. Leland Frias MD FACR PE at Discharge GENERAL: This is a well-nourished, well-developed patient, thin female with nebulizer treatment CARDIOVASCULAR: Regular rate and rhythm without murmurs, gallops, or rubs. RESPIRATORY: Decreased airflow bilaterally at baseline GASTROINTESTINAL: Abdomen soft, non-tender, nondistended. Normal active bowel sounds MUSCULOSKELETAL: Extremities without clubbing, cyanosis, or edema. NEURO: Alert & Oriented x4 to person, place, time, situation. Moves all ext x4 Pt update on day of discharge Patient doing much better today. Discharge plans discussed with patient. Patient baseline Hospital Course This patient is an with associated COPD exacerbation. Patient was treated for both. She did very well. She is on 4 L oxygen at home and this she will continue. She is recommended for rehab placement at discharge 82-year-old female who lives at home alone. She came to the hospital with increased shortness of breath and dyspnea. She was found to have a flu. This is explained to the patient as well as her son who is her healthcare surrogate. Pt Condition on Discharge: Fair Discharge Disposition: Discharge to SNF Discharge Time: <= 30 minutes Discharge Instructions DIET: Follow Instructions for: As Tolerated, No Restrictions Activities you can perform: Regular-No Restrictions Follow up Referrals: PCP Follow-up - 2 Weeks New Medications: Prednisone (21) 10 mg tab Dose Pack (Prednisone (21) 10 mg tab Dose Pack) 10 Mg Pack 10 MG PO DIRECTED for Inflammation, #1 DSPK 0 Refills Oseltamivir (Tamiflu) 75 Mg Cap 75 MG PO BID for Infection, #6 CAP [Albuterol-Ipratropium Neb] () 1 AMPULE NEBU 1 AMPULE NEB Q6HR WHILE AWAKE NEB for copd, #90 Continued Medications: Apixaban (Eliquis) 2.5 Mg Tab 2.5 MG PO DAILY for Blood Clot Prevention, TAB [address] (Aspirin 81) 81 Mg Tabdr 81 MG PO DAILY, TAB 0 Refills Diltiazem CD 24 HR (Diltiazem CD 24 HR) 240 Mg Caper 240 MG PO DAILY, #30 CAP 0 Refills Fluticasone-Salmeterol Inh (Advair Diskus Inh) 100-50 Mcg/Blist Aer 1 PUFF INH BID for Asthma Management, #1 INHALER 0 Refills Rinse mouth after use. Gabapentin (Gabapentin) 300 Mg Cap 300 MG PO TID, #90 CAP 0 Refills Ipratropium-Albuterol Inh (Combivent Respimat Inh) 20-100 Chcf/Act Aero 1 PUFF INH QID for Asthma Management, #1 INHALER 0 Refills Lansoprazole (Prevacid) 30 Mg Capdr 30 MG PO DAILY, CAP 0 Refills Lorazepam (Lorazepam) 0.5 Mg Tab 0.5 MG PO BID PRN for ANXIETY, TAB 0 Refills Losartan (Cozaar) 100 Mg Tab 100 MG PO HS for Blood Pressure Management, #30 TAB 0 Refills Discontinued Medications: Albuterol 18 GM Inh (Ventolin Hfa 18 GM Inh) 90 Mcg/Act Aer 2 PUFF INH Q4-6H PRN for SHORTNESS OF BREATH, #1 INHALER 0 Refills Albuterol Neb (Albuterol Neb) 2.5 Mg/0.5 Ml Neb 2.5 MG NEB Q4HR NEB PRN for SOB/WHEEZING, EA Note: The Albuterol Sulfate Inhalation Solution is concentrated and must be diluted. Read complete instructions carefully before using. Aubrie Quiroz MD Feb 01, 2018 08:31
[2018-02-01] MEDS: ASPIRIN EC 81 MG TABEC PO SCH (08:57)
[2018-02-01] MEDS: OSELTAMIVIR PHOSPHATE 75 MG CAP PO SCH (08:57)
[2018-02-01] MEDS: PANTOPRAZOLE SOD 40 MG DELAYED RELEASE TAB PO SCH (08:57)
[2018-02-01] MEDS: BUDESONIDE-FORMOTEROL 80/4.5 MCG INHALER INH SCH (08:58)
[2018-02-01] MEDS: TIOTROPIUM BROMIDE 18 MCG INH INH SCH (08:58)
[2018-02-01] MEDS: predniSONE 20 MG TAB PO SCH (08:58)
[2018-02-01] MEDS: APIXABAN 2.5 MG TABLET PO SCH (08:58)
[2018-02-01] MEDS: DILTIAZEM-CD 240 MG CAP ER PO SCH (09:13)
--- NOTE | 2018-02-01 10:07 | HHI.FF ---
Face to Face Verification Diagnosis: (1) Atrial fibrillation with RVR (2) COPD exacerbation Physical Therapy Order: Evaluate and Treat, Improve ambulation Occupational Therapy Order: Evaluate and Treat, Gross motor coordination Home Health Nursing Order: Medical education Home Health Aide Order: To Assist In: Bathing and personal care, manager internal and meal prep I have seen patient Tiff Phillips on 02/01/18. My clinical findings support the need for the requested home health care services because: Ltd mobility - disease progression Patient has SOB I certify that my clinical findings support that this patient is homebound because: Hx COPD- exertion dyspnea/weakness Aubrie Quiroz MD Feb 01, 2018 10:07
[2018-02-01 11:50] VITALS: BP 217/83; PULSE 86; RESP 20; TEMP 96.8; O2SAT 94
[2018-02-01 12:20] VITALS: BP 210/91; PULSE 105
[2018-02-01 13:34] VITALS: BP 146/82
== END 2018-02-01 13:34 | disposition home health service (06) | DRG 872 ==
LOC: PHED 14:27 → PHEDA 16:42 → PH3B 18:04
PROVIDERS: ADMIT Hospitalist; ATTEND Hospitalist
DX: A41.89 Other specified sepsis (principal); R64 Cachexia; J96.11 Chronic respiratory failure with hypoxia; J44.0 Chronic obstructive pulmonary disease with (acute) lower respiratory infection; J44.1 Chronic obstructive pulmonary disease with (acute) exacerbation; I48.91 Unspecified atrial fibrillation; J20.9 Acute bronchitis, unspecified; J10.1 Influenza due to other identified influenza virus with other respiratory manifestations; I25.10 Atherosclerotic heart disease of native coronary artery without angina pectoris; K21.9 Gastro-esophageal reflux disease without esophagitis; I10 Essential (primary) hypertension; M79.7 Fibromyalgia; M19.90 Unspecified osteoarthritis, unspecified site; F32.9 Major depressive disorder, single episode, unspecified; Z79.01 Long term (current) use of anticoagulants; Z88.0 Allergy status to penicillin; Z88.5 Allergy status to narcotic agent; Z85.118 Personal history of other malignant neoplasm of bronchus and lung; Z90.2 Acquired absence of lung [part of]; Z99.81 Dependence on supplemental oxygen
CPT/HCPCS: 71045; 80053; 83605; 83690; 83735; 84145; 85025; 85610; 85730; 87040; 87804; 93005; 94640; 94664; 96365; 96375; J0692; J2930; J3370; J7030; J7040; J7050; J7512

== ENCOUNTER 2018-02-03 17:20 | Inpatient (IN) | payer MEDICARE ==
[~2018-02-03] VITALS: Ht 167.6 cm; Wt 41.5 kg
[~2018-02-03 17:20] MED LIST changes: -ALBU.5I NEB; +Albuterol-Ipratropium Neb NEB; +OSEL75 PO; +PRED10PA PO; -VENTAER INH
[2018-02-03 18:29] VITALS: BP 142/67; PULSE 88; RESP 18; TEMP 97.8; O2SAT 99
[2018-02-03] MEDS ORDERED: RESP: ALBUTEROL 2.5 MG/IPRATROPIUM 0.5 MG NEB (SCH) INH ONE (19:45)
[2018-02-03] MEDS ORDERED: SODIUM CHLORIDE 0.9% FLUSH 10 ML FLUSH IVF PRN (19:45)
[2018-02-03 19:54] VITALS: O2SAT 92
[2018-02-03 20:15] VITALS: BP 174/89; PULSE 110; RESP 20; O2SAT 95
--- NOTE | 2018-02-03 20:18 | RADRPT ---
EXAM DATE/TIME: 02/03/2018 19:55 [facility] COMPARISON: CHEST SINGLE AP, January 28, 2018, 15:04. INDICATIONS : Shortness of breath. MEDICAL HISTORY : Hypertension. Carcinoma, lung. SURGICAL HISTORY : None. ENCOUNTER: Initial ACUITY: 1 day PAIN SCORE: Non-responsive. LOCATION: Bilateral chest FINDINGS: Marked is edematous changes. Prior lobar resection on the left. There is a new ill-defined area of opacity in the right lateral midlung, partially obscured by a cardiac lead, measuring 2.7 cm. Persis ting consolidation in the medial left lower lung with loss of delineation of the medial left hemidiap hragm. The heart is normal in size. CONCLUSION: There is a new irregular shaped 2.7 cm opacity in the right midlung. Alan Painter MD on February 03, 2018 at 20:14 Board Certified Radiologist. This report was verified electronically.
[2018-02-03 20:53] LABS: AUTOMATED NEUTROPHIL # 13.5 TH/MM3 (1.8-7.7); HEMATOCRIT 41.8 % (35.0-46.0); HEMOGLOBIN 13.6 GM/DL (11.6-15.3); LYMPH % 1.6 % (9.0-44.0); LYMPHOCYTE # 0.2 TH/MM3 (1.0-4.8); MEAN CELL VOLUME 88.3 FL (80.0-100.0); MEAN CORPUSCULAR HEMOGLOBIN 28.7 PG (27.0-34.0); MEAN CORPUSCULAR HGB CONC 32.6 % (32.0-36.0); MEAN PLATELET VOLUME 8.5 FL (7.0-11.0); MONO % 1.6 % (0.0-8.0); MONOCYTE # 0.2 TH/MM3 (0-0.9); NEUT % 96.8 % (16.0-70.0); PLATELET COUNT 380 TH/MM3 (150-450); RED BLOOD COUNT 4.73 MIL/MM3 (4.00-5.30); RED CELL DISTRIBUTION WIDTH 15.7 % (11.6-17.2); WHITE BLOOD COUNT 13.9 TH/MM3 (4.0-11.0)
[2018-02-03] MEDS ORDERED: methylPREDNISolone SOD SUCC 125 MG/2 ML VIAL IV PUSH ONE (21:15)
[2018-02-03 21:31] LABS: PROTHROMBIN TIME - PATIENT 10.6 SEC (9.8-11.6)
[2018-02-03 21:33] LABS: ALBUMIN 2.8 GM/DL (3.4-5.0); ALKALINE PHOSPHATASE 91 U/L (45-117); ALT (GPT) 33 U/L (10-53); AST (GOT) 25 U/L (15-37); BICARBONATE 34.7 MEQ/L (21.0-32.0); BLOOD UREA NITROGEN 40 MG/DL (7-18); CALCIUM 9.3 MG/DL (8.5-10.1); CHLORIDE 104 MEQ/L (98-107); CREATININE 0.95 MG/DL (0.50-1.00); GLOMERULAR FILTRATION RATE 56 ML/MIN (>89); GLUCOSE,RANDOM 95 MG/DL (74-106); MAGNESIUM 2.1 MG/DL (1.5-2.5); SODIUM (NA) 146 MEQ/L (136-145); TOTAL BILIRUBIN ADULT 0.9 MG/DL (0.2-1.0); TOTAL PROTEIN 6.9 GM/DL (6.4-8.2); TROPONIN I 0.03 NG/ML (0.02-0.05)
[2018-02-03] MEDS ORDERED: metroNIDAZOLE 500 MG INJ 100 ML IV ONE (21:45)
[2018-02-03 21:47] LABS: D-DIMER 1.48 MG/L FEU (0.00-0.50)
[2018-02-03 22:30] VITALS: BP 160/72; PULSE 109; RESP 18; O2SAT 94
[2018-02-03] MEDS ORDERED: IOHEXOL 350 MG/ML 10 ML VIAL (for RAD DIAG) IVCONTRAST ONE (23:50)
[2018-02-04] VITALS (13 sets, daily range): BP systolic 107–185; BP diastolic 56–91; PULSE 61–113; RESP 14–24; TEMP 96.8–99.7; O2SAT 95–100
--- NOTE | 2018-02-04 00:14 | RADRPT ---
EXAM DATE/TIME: 02/03/2018 23:43 [facility] COMPARISON: CT PULMONARY ANGIOGRAM, September 05, 2016, 13:25. INDICATIONS : Shortness of breath, elevated d-dimer. Evaluate for embolism. IV CONTRAST: 50 cc Omnipaque 350 (iohexol) IV RADIATION DOSE: 2.63 CTDIvol (mGy) MEDICAL HISTORY : Myocardial infarction. Hypertension. Carcinoma, lung.COPD. CAD. SURGICAL HISTORY : Pacemaker. Left lobectomy. ENCOUNTER: Initial ACUITY: 2 days PAIN SCALE: 0/10 LOCATION: chest TECHNIQUE: Volumetric scanning of the chest was performed using a pulmonary embolism protocol MIP images were re constructed. Using automated exposure control and adjustment of the mA and/or kV according to patien t size, radiation dose was kept as low as reasonably achievable to obtain optimal diagnostic quality images. DICOM format image data is available electronically for review and comparison. Follow-up recommendations for detected pulmonary nodules are based at a minimum on nodule size and pa tient risk factors according to Fleischner Society Guidelines. FINDINGS: PULMONARY ARTERIES: No filling defects are seen in the pulmonary arteries through the segmental level. LUNGS: There is severe emphysema. Airspace consolidation is present within the right lung, most severe in th e posterior segment of the right upper lobe. Nodular consolidation in the right upper lobe measures 1 3 mm on image 61. There is mild consolidation in the superior segment of the right lower lobe. Compre ssive atelectasis is present in the right lower lobe adjacent to the pleural effusion. There is an im pacted mildly dilated airway in the right lower lobe. Patient is post left lobectomy. PLEURAE: There is a small simple appearing right pleural effusion and trace left pleural fluid and pleural thi ckening that is stable from the prior study. MEDIASTINUM: There is coronary artery calcification and severe atherosclerotic disease of the aorta. No aneurysm i s present. There is an enlarged right hilar lymph node measuring 16 mm in short axis diameter. MUSCULOSKELETAL: There are degenerative changes of the thoracic spine. Left rib changes are stable and consistent with prior left thoracotomy. MISCELLANEOUS: The visualized upper abdominal organs demonstrate no acute abnormality. CONCLUSION: 1. No PE is identified. 2. Severe emphysema with a right lung air space consolidation, most severe in the posterior segment o f the right upper lobe. There is an associated small right pleural effusion and enlarged right hilar lymph node. These findings could represent an infectious process in the appropriate clinical setting. Suggest followup imaging following appropriate therapy to confirm resolution. 3. There is a mildly dilated impacted bronchi in the right lower lobe. Jb Rogers MD on February 04, 2018 at 0:06 Board Certified Radiologist. This report was verified electronically.
[2018-02-04] MEDS ORDERED: VANCOMYCIN INJ 1,000 MG in SODIUM CHLOR 0.9% 250 ML INJ 250 ML IV ONE (00:45)
[2018-02-04] MEDS ORDERED: SODIUM CHLORIDE 0.9% FLUSH 10 ML FLUSH IV FLUSH PRN (01:15)
[2018-02-04] MEDS ORDERED: RESP: ALBUTEROL 2.5 MG/IPRATROPIUM 0.5 MG NEB (PRN) INH (01:15)
[2018-02-04] MEDS ORDERED: guaiFENesin/DEXTROMETHORPHAN 200 MG/20 MG/10 ML CUP PO PRN (01:15)
[2018-02-04] MEDS ORDERED: Vancomycin Consult Pharmacy 1 EA OTHER SCH (01:15)
[2018-02-04] MEDS ORDERED: ACETAMINOPHEN 325 MG TAB PO PRN (01:15)
[2018-02-04] MEDS ORDERED: HEPARIN SODIUM - SQ 10,000 UNITS/ML VIAL SQ SCH (01:15)
[2018-02-04] MEDS ORDERED: LORazepam 0.5 MG TAB PO PRN (01:15)
--- NOTE | 2018-02-04 01:26 | PD ---
HPI . Acute respiratory symptom Chief Complaint: Respiratory Symptoms Time Seen by Provider: 19:35 Travel History International Travel<30 days: No Contact w/Intl Traveler<30days: No Traveled to known affect area: No History of Present Illness HPI 82-year-old female with history of COPD/emphysema, presents with having worsening shortness of breath lately, felt like she just could not get any air today as per patient. Patient denies any fever chills sweats but notes generalized malaise of late as well. Has mild cough that is nonproductive. Denies any leg swelling or leg pain. PFSH Past Medical History Narrative Medical Past medical history reviewed Hx Anticoagulant Therapy: Yes Arthritis: Yes Asthma: Yes Atrial Fibrillation: Yes Autoimmune Disease: No Blood Disorders: No Anxiety: No Depression: Yes Heart Rhythm Problems: Yes Cancer: Yes (LUNG CA L UPPER LOBECTOMY 2000, SKIN RIGHT ANKLE) Cardiac Catheterization: No Cardiovascular Problems: Yes High Cholesterol: Yes Chemotherapy: No Chest Pain: No Congestive Heart Failure: No COPD: Yes Cerebrovascular Accident: No Coronary Artery Disease: Yes Diabetes: No Diminished Hearing: No Endocrine: Yes Gastrointestinal Disorders: Yes (ACID REFLUX, CROFT'S ESOPHAGUS, POLYPS IN COLON) GERD: Yes Glaucoma: No Genitourinary: Yes Headaches: Yes Hepatitis: Yes (HEPATITIS A) Hiatal Hernia: No Heparin Induced Thrombocytopen: No Herniated Disk: Yes (CERVICAL ) Hypertension: Yes Immune Disorder: Yes (FIBROMYALGIA) Implanted Vascular Access Dvce: Yes Kidney Stones: Yes Musculoskeletal: Yes Neurologic: Yes Psychiatric: Yes Reproductive: No Respiratory: Yes Immunizations Current: Yes Migraines: No Myocardial Infarction: No Radiation Therapy: No Renal Failure: No Seizures: No Sickle Cell Disease: No Sleep Apnea: No Thyroid Disease: Yes Ulcer: No ?: Not Menopausal: Yes : 1 Para: 1 Past Surgical History Abdominal Surgery: Yes (APPENDECTOMY, CHOLECYSTECTOMY) AICD: No Appendectomy: Yes (1961) Arteriovenous Shunt: No Body Medical Devices: L GREAT TOE, stent in stomach Cardiac Surgery: Yes (pacemaker/aicd) Cholecystectomy: Yes (1983) Coronary Artery Bypass Graft: No Ear Surgery: No Endocrine Surgery: Yes (PARTIAL THYROIDECTOMY FOR NODULE, 1997) Eye Surgery: Yes (BILATERAL CATARACTS REMOVED) Genitourinary Surgery: No Gynecologic Surgery: No Insulin Pump: No Neurologic Surgery: No Oral Surgery: No Pacemaker: No Thoracic Surgery: Yes (LEFT UPPER LUNG PARTIAL LOBECTOMY 2000) Other Surgery: Yes (thyroidectomy) Social History Alcohol Use: No Tobacco Use: No Substance Use: No Allergies-Medications (Allergen,Severity, Reaction): Coded Allergies: codeine (Unverified Allergy, Severe, gi upset, 02/03/18) morphine (Unverified Allergy, Severe, gi upset, 02/03/18) penicillin G (Unverified Allergy, Severe, itchy, 02/03/18) amiodarone (Unverified Adverse Reaction, Severe, THYROID STORM, 02/03/18) Uncoded Allergies: NICKEL (Adverse Reaction, Intermediate, SKIN ITCHES, BLISTERS, , 05/13/14) Reported Meds & Prescriptions Reported Meds & Active Scripts Active Prednisone (21) 10 mg tab Dose Pack (Prednisone) 10 Mg Pack 10 Mg PO DIRECTED [Albuterol-Ipratropium Neb] 1 AMPULE Nebu 1 Ampule NEB Q6HR WHILE AWAKE NEB Tamiflu (Oseltamivir Phosphate) 75 Mg Cap 75 Mg PO BID Reported Diltiazem CD 24 HR 240 Mg Caper 240 Mg PO DAILY Prevacid (Lansoprazole) 30 Mg Capdr 30 Mg PO DAILY Cozaar (Losartan Potassium) 100 Mg Tab 100 Mg PO HS Lorazepam 0.5 Mg Tab 0.5 Mg PO BID PRN Gabapentin 300 Mg Cap 300 Mg PO TID Combivent Respimat Inh (Ipratropium-Albuterol Inh) 20-100 Alf/Act Aero 1 Puff INH QID Aspirin 81 (Aspirin) 81 Mg Tabdr 81 Mg PO DAILY Eliquis (Apixaban) 2.5 Mg Tab 2.5 Mg PO DAILY Advair Diskus Inh (Fluticasone-Salmeterol Inh) 100-50 Mcg/Blist Aer 1 Puff INH BID Rinse mouth after use. Narrative Medication Allergies and medications reviewed Review of Systems Except as stated in HPI: all other systems reviewed are Neg General / Constitutional: No: Fever Eyes: No: Visual changes HENT: No: Headaches Cardiovascular: No: Chest Pain or Discomfort Respiratory: Positive: Cough, Shortness of Breath, Wheezing, No: Sneezing, Orthopnea, Hemoptysis, Stridor, Night Sweats, Pleuritic Pain Gastrointestinal: No: Abdominal Pain Genitourinary: No: Dysuria Musculoskeletal: No: Pain Skin: No Rash Neurologic: No: Weakness Psychiatric: No: Depression Endocrine: No: Polydipsia Hematologic/Lymphatic: No: Easy Bruising Physical Exam Narrative GENERAL: Awake and alert acutely dyspneic, oxygen saturation 90% on 2 L nasal cannula. SKIN: Warm and dry. Color slightly sallow, no diaphoresis cyanosis or pallor. No rashes HEAD: Atraumatic. Normocephalic. EYES: Pupils equal and round. No scleral icterus. No injection or drainage. ENT: No nasal bleeding or discharge. Mucous membranes pink and moist. NECK: Trachea midline. No JVD. Trachea midline CARDIOVASCULAR: Regular rate and rhythm. S1-S2 no murmurs rubs gallops RESPIRATORY: Wheezing bilaterally, poor air entry bilaterally. Equal bilateral excursions. Positive supra sternal notch and intercostal retractions. GASTROINTESTINAL: Abdomen soft, non-tender, nondistended. Hepatic and splenic margins not palpable. Cachectic MUSCULOSKELETAL: Extremities without clubbing, cyanosis, or edema. No obvious deformities. NEUROLOGICAL: Awake and alert. No obvious focal deficit PSYCHIATRIC: Appropriate mood and affect; insight and judgment normal. Data Data Last Documented VS Vital Signs Date Time Temp Pulse Resp B/P (MAP) Pulse Ox O2 Delivery O2 Flow Rate FiO2 02/03/18 22:30 109 18 160/72 (101) 94 Nasal Cannula 4.00 02/03/18 18:29 97.8 Orders Orders Complete Blood Count With Diff (02/03/18 19:38) Comprehensive Metabolic Panel (02/03/18 19:38) B-Type Natriuretic Peptide (02/03/18 19:38) D-Dimer (02/03/18 19:38) Act Partial Throm Time (Ptt) (02/03/18 19:38) Prothrombin Time / Inr (Pt) (02/03/18 19:38) Magnesium (Mg) (02/03/18 19:38) Ckmb (Isoenzyme) Profile (02/03/18 19:38) Troponin I (02/03/18 19:38) Arterial Blood Gas (Abg) (02/03/18 19:38) Urinalysis - C+S If Indicated (02/03/18 19:38) Blood Culture (02/03/18 19:38) Iv Access Insert/Monitor (02/03/18 19:38) Electrocardiogram (02/03/18 19:38) Ecg Monitoring (02/03/18 19:38) Oximetry (02/03/18 19:38) Oxygen Administration (02/03/18 19:38) Chest, Single Ap (02/03/18 19:38) Sodium Chloride 0.9% Flush (Ns Flush) (02/03/18 19:45) Albuterol-Ipratropium Neb (Duoneb Neb) (02/03/18 19:45) Methylprednisolone So Succ Inj (Solumedr (02/03/18 21:15) Metronidazole 500 Mg Inj (Flagyl 500 Mg (02/03/18 21:45) Ct Pulmonary Angiogram (02/03/18 ) Iohexol 350 Inj (Omnipaque 350 Inj) (02/03/18 23:50) Vancomycin Inj (Vancomycin Inj) (02/04/18 00:45) Admit Order (Ed Use Only) (02/04/18 00:57) Vancomycin Consult Pharmacy (Vancomycin (02/04/18 01:15) Cefepime Inj (Maxipime Inj) (02/04/18 02:00) Sodium Chloride 0.9% Flush (Ns Flush) (02/04/18 01:15) Sodium Chloride 0.9% Flush (Ns Flush) (02/04/18 09:00) Acetaminophen (Tylenol) (02/04/18 01:15) Albuterol-Ipratropium Neb (Duoneb Neb) (02/04/18 04:00) Albuterol-Ipratropium Neb (Duoneb Neb) (02/04/18 01:15) Guaifen-Dm 200-20 Mg/10 Ml Liq (Robituss (02/04/18 01:15) Place In Observation (02/04/18 ) Vital Signs (Adult) Q4H (02/04/18 01:06) Activity Oob With Assistance PRN (02/04/18 01:06) Notify Parameters (02/04/18 01:06) Intake + Output Q8H (02/04/18 01:06) Diet Heart Healthy (02/04/18 Breakfast) Complete Blood Count With Diff (02/05/18 06:00) Basic Metabolic Panel (Bmp) (02/05/18 06:00) Resp Oxygen Peyman C Titrat 1-4 L (02/04/18 ) Consult Pt Eval & Treat (02/04/18 01:06) Heparin Inj (Heparin Inj) (02/04/18 01:15) Labs Laboratory Tests Test 02/03/18 19:58 02/03/18 20:20 Blood Gas Puncture Site RT RADIAL Blood Gas Patient Temperature 98.6 Blood Gas HCO3 32 mmol/L Blood Gas Base Excess 8.1 mmol/L Blood Gas Oxygen Saturation 91 % Arterial Blood pH 7.46 Arterial Blood Partial Pressure CO2 46 mmHg Arterial Blood Partial Pressure O2 66 mmHG Arterial Blood Oxygen Content 16.9 Vol % Arterial Blood Carboxyhemoglobin 1.6 % Arterial Blood Methemoglobin 0.5 % Blood Gas Hemoglobin 13.2 G/DL Oxygen Delivery Device NASAL CANNULA Blood Gas Liter Flow 3 L/M White Blood Count 13.9 TH/MM3 Red Blood Count 4.73 MIL/MM3 Hemoglobin 13.6 GM/DL Hematocrit 41.8 % Mean Corpuscular Volume 88.3 FL Mean Corpuscular Hemoglobin 28.7 PG Mean Corpuscular Hemoglobin Concent 32.6 % Red Cell Distribution Width 15.7 % Platelet Count 380 TH/MM3 Mean Platelet Volume 8.5 FL Neutrophils (%) (Auto) 96.8 % Lymphocytes (%) (Auto) 1.6 % Monocytes (%) (Auto) 1.6 % Eosinophils (%) (Auto) 0.0 % Basophils (%) (Auto) 0.0 % Neutrophils # (Auto) 13.5 TH/MM3 Lymphocytes # (Auto) 0.2 TH/MM3 Monocytes # (Auto) 0.2 TH/MM3 Eosinophils # (Auto) 0.0 TH/MM3 Basophils # (Auto) 0.0 TH/MM3 CBC Comment DIFF FINAL Differential Comment Prothrombin Time 10.6 SEC Prothromb Time International Ratio 1.0 RATIO Activated Partial Thromboplast Time 24.5 SEC D-Dimer Quantitative (PE/DVT) 1.48 MG/L FEU Blood Urea Nitrogen 40 MG/DL Creatinine 0.95 MG/DL Random Glucose 95 MG/DL Total Protein 6.9 GM/DL Albumin 2.8 GM/DL Calcium Level 9.3 MG/DL Magnesium Level 2.1 MG/DL Alkaline Phosphatase 91 U/L Aspartate Amino Transf (AST/SGOT) 25 U/L Alanine Aminotransferase (ALT/SGPT) 33 U/L Total Bilirubin 0.9 MG/DL Sodium Level 146 MEQ/L Potassium Level 4.0 MEQ/L Chloride Level 104 MEQ/L Carbon Dioxide Level 34.7 MEQ/L Anion Gap 7 MEQ/L Estimat Glomerular Filtration Rate 56 ML/MIN Total Creatine Kinase 33 U/L Troponin I 0.03 NG/ML B-Type Natriuretic Peptide 301 PG/ML MDM Medical Decision Making Medical Screen Exam Complete: Yes Emergency Medical Condition: Yes Medical Record Reviewed: Yes Differential Diagnosis Emphysema, pneumonia, CHF, pulmonary embolus Narrative Course Patient laboratory examinations reviewed, patient has elevated white blood cell count which could be consistent with infection versus chronic use of prednisone. Elevated d-dimer warranting CT pulmonary angina chest which revealed consolidations right worse than left lung bernal, marked emphysematous changes. No PE seen Patient was cultured and antibiotics ordered beginning at presentation Flagyl, with vancomycin added post CT. Diagnosis Primary Impression: Pneumonia Qualified Codes: J18.1 - Lobar pneumonia, unspecified organism Additional Impressions: COPD exacerbation CHF (congestive heart failure) Qualified Codes: I50.9 - Heart failure, unspecified Admitting Information Admitting Physician Requests: Admit Damian Orozco MD Feb 04, 2018 01:25
[2018-02-04] MEDS ORDERED: CEFEPIME INJ 2,000 MG in SODIUM CHLORIDE 0.9% INJ 100 ML IV SCH (02:00)
[2018-02-04] MEDS: RESP: ALBUTEROL 2.5 MG/IPRATROPIUM 0.5 MG NEB (SCH) INH ×4 (03:17→21:03)
[2018-02-04] MEDS: APIXABAN 2.5 MG TABLET PO SCH (08:40)
[2018-02-04] MEDS: ASPIRIN EC 81 MG TABEC PO SCH (08:44)
[2018-02-04] MEDS: DILTIAZEM-CD 240 MG CAP ER PO SCH (08:44)
[2018-02-04] MEDS: GABAPENTIN 300 MG CAP PO SCH ×3 (08:44→17:42)
[2018-02-04] MEDS: PANTOPRAZOLE SOD 40 MG DELAYED RELEASE TAB PO SCH (08:44)
--- NOTE | 2018-02-04 11:46 | EKG ---
Date Performed: 02/03/2018 Time Performed: 20:46:51 PTAGE: 82 years EKG: MULTIFOCAL ATRIAL TACHYCARDIA VOLTAGE CRITERIA FOR LVH NONSPECIFIC ST & T-WAVE ABNORMALITY ABNORMAL ECG PREVIOUS TRACING : 01/28/2018 16.11 DOCTOR: Jet Gottlieb Interpretating Date/Time 02/04/2018 11:44:58
--- NOTE | 2018-02-04 12:16 | HHI.HP ---
[facility] Service [facility] Primary Care Physician Jena Greene MD Admission Diagnosis Pneumonia, COPD Exacerbation, CHF Diagnoses: Chief Complaint: diarrhea Travel History International Travel<30 Days: No Contact w/Intl Traveler <30 Da: No Traveled to Known Affected Are: No History of Present Illness 82-year-old female with history of COPD/emphysema, presents with having worsening shortness of breath lately, felt like she just could not get any air today. The patient is a poor historian. Patient denies any fever, chills, sweats but notes generalized malaise of late as well. Has mild cough that is nonproductive. Denies any leg swelling or leg pain. Review of Systems ROS Limitations: Clinical Condition, Poor Historian Except as stated in HPI: all other systems reviewed are Neg Past Family Social History Past Medical History Arthritis COPD History of lung cancer, left upper lobe Atrial fibrillation Coronary artery disease GERD, Jhaveri's esophagus History of hepatitis A Fibromyalgia History of kidney stones Hyperlipidemia Past Surgical History Appendectomy Cholecystectomy Partial thyroidectomy 1997 Bilateral cataract surgery Left upper lung partial lobectomy 2000 Right wrist surgery Left great toe surgery Reported Medications Last Impressions Chest X-Ray 02/03/18 1938 Signed Impressions: Service Date/Time: Saturday, February 03, 2018 19:55 - CONCLUSION: There is a new irregular shaped 2.7 cm opacity in the right midlung. Alan Painter MD CT Angiography 02/03/18 0000 Signed Impressions: Service Date/Time: Saturday, February 03, 2018 23:43 - CONCLUSION: 1. No PE is identified. 2. Severe emphysema with a right lung air space consolidation, most severe in the posterior segment of the right upper lobe. There is an associated small right pleural effusion and enlarged right hilar lymph node. These findings could represent an infectious process in the appropriate clinical setting. Suggest followup imaging following appropriate therapy to confirm resolution. 3. There is a mildly dilated impacted bronchi in the right lower lobe. Jb Rogers MD Allergies: Coded Allergies: codeine (Unverified Allergy, Severe, gi upset, 02/03/18) morphine (Unverified Allergy, Severe, gi upset, 02/03/18) penicillin G (Unverified Allergy, Severe, itchy, 02/03/18) amiodarone (Unverified Adverse Reaction, Severe, THYROID STORM, 02/03/18) Uncoded Allergies: NICKEL (Adverse Reaction, Intermediate, SKIN ITCHES, BLISTERS, , 05/13/14) Family History No diabetes, HT or stroke in her family Social History Denies tobacco use or etoh use Physical Exam Vital Signs Vital Signs Date Time Temp Pulse Resp B/P (MAP) Pulse Ox O2 Delivery O2 Flow Rate FiO2 02/04/18 12:00 99.7 109 24 108/58 (75) 99 02/04/18 08:00 96.8 113 24 185/91 (122) 100 02/04/18 04:39 97.8 110 14 151/89 (109) 95 02/04/18 02:33 98.3 97 14 149/73 (98) 97 02/04/18 02:00 95 02/03/18 22:30 109 18 160/72 (101) 94 Nasal Cannula 4.00 02/03/18 20:15 95 Nasal Cannula 4.00 02/03/18 20:15 110 20 174/89 (117) 95 Nasal Cannula 4.00 02/03/18 19:54 92 Nasal Cannula 3.00 02/03/18 18:33 22 02/03/18 18:29 97.8 88 18 142/67 (92) 99 Physical Exam GENERAL: This is a pleasntly confused 82 yo F, appears sleepy, well-nourished, well-developed patient, in no apparent distress. SKIN: No rashes, ecchymoses or lesions. Cool and dry. HEAD: Atraumatic. Normocephalic. No temporal or scalp tenderness. EYES: Pupils equal round and reactive. Extraocular motions intact. No scleral icterus. No injection or drainage. ENT: Nose without bleeding, purulent drainage or septal hematoma. Throat without erythema, tonsillar hypertrophy or exudate. Uvula midline. Airway patent. NECK: Trachea midline. No JVD or lymphadenopathy. Supple, nontender, no meningeal signs. CARDIOVASCULAR: Regular rate and rhythm without murmurs, gallops, or rubs. RESPIRATORY: Clear to auscultation. Breath sounds equal bilaterally. No wheezes , rales, or rhonchi. GASTROINTESTINAL: Abdomen soft, non-tender, nondistended. No hepato-splenomegaly , or palpable masses. No guarding. MUSCULOSKELETAL: Extremities without clubbing, cyanosis, or edema. No joint tenderness, effusion, or edema noted. No calf tenderness. Negative Homans sign bilaterally. NEUROLOGICAL: Awake and alert. Cranial nerves grossly intact. Motor and sensory grossly within normal limits. Normal speech. Poor insight and judgement. Laboratory Laboratory Tests Test 02/03/18 19:58 02/03/18 20:20 Blood Gas Puncture Site RT RADIAL Blood Gas Patient Temperature 98.6 Blood Gas HCO3 32 Blood Gas Base Excess 8.1 Blood Gas Oxygen Saturation 91 Arterial Blood pH 7.46 Arterial Blood Partial Pressure CO2 46 Arterial Blood Partial Pressure O2 66 Arterial Blood Oxygen Content 16.9 Arterial Blood Carboxyhemoglobin 1.6 Arterial Blood Methemoglobin 0.5 Blood Gas Hemoglobin 13.2 Oxygen Delivery Device NASAL CANNULA Blood Gas Liter Flow 3 White Blood Count 13.9 Red Blood Count 4.73 Hemoglobin 13.6 Hematocrit 41.8 Mean Corpuscular Volume 88.3 Mean Corpuscular Hemoglobin 28.7 Mean Corpuscular Hemoglobin Concent 32.6 Red Cell Distribution Width 15.7 Platelet Count 380 Mean Platelet Volume 8.5 Neutrophils (%) (Auto) 96.8 Lymphocytes (%) (Auto) 1.6 Monocytes (%) (Auto) 1.6 Eosinophils (%) (Auto) 0.0 Basophils (%) (Auto) 0.0 Neutrophils # (Auto) 13.5 Lymphocytes # (Auto) 0.2 Monocytes # (Auto) 0.2 Eosinophils # (Auto) 0.0 Basophils # (Auto) 0.0 CBC Comment DIFF FINAL Differential Comment Prothrombin Time 10.6 Prothromb Time International Ratio 1.0 Activated Partial Thromboplast Time 24.5 D-Dimer Quantitative (PE/DVT) 1.48 Blood Urea Nitrogen 40 Creatinine 0.95 Random Glucose 95 Total Protein 6.9 Albumin 2.8 Calcium Level 9.3 Magnesium Level 2.1 Alkaline Phosphatase 91 Aspartate Amino Transf (AST/SGOT) 25 Alanine Aminotransferase (ALT/SGPT) 33 Total Bilirubin 0.9 Sodium Level 146 Potassium Level 4.0 Chloride Level 104 Carbon Dioxide Level 34.7 Anion Gap 7 Estimat Glomerular Filtration Rate 56 Total Creatine Kinase 33 Troponin I 0.03 B-Type Natriuretic Peptide 301 Date/Time Source Procedure Growth Status 02/03/18 20:25 Blood Peripheral Aerobic Blood Culture - Preliminary NO GROWTH IN 1 DAY Resulted 02/03/18 20:25 Blood Peripheral Anaerobic Blood Culture - Preliminary NO GROWTH IN 1 DAY Resulted Result Diagram: 02/03/18201902/03/182019 Imaging Last Impressions Chest X-Ray 02/03/18 1938 Signed Impressions: Service Date/Time: Saturday, February 03, 2018 19:55 - CONCLUSION: There is a new irregular shaped 2.7 cm opacity in the right midlung. Alan Painter MD CT Angiography 02/03/18 0000 Signed Impressions: Service Date/Time: Saturday, February 03, 2018 23:43 - CONCLUSION: 1. No PE is identified. 2. Severe emphysema with a right lung air space consolidation, most severe in the posterior segment of the right upper lobe. There is an associated small right pleural effusion and enlarged right hilar lymph node. These findings could represent an infectious process in the appropriate clinical setting. Suggest followup imaging following appropriate therapy to confirm resolution. 3. There is a mildly dilated impacted bronchi in the right lower lobe. MD Chato Mooni VTE Risk Assessment Caprini VTE Risk Assessment: Mod/High Risk (score >= 2) Caprini Risk Assessment Model Point Value = 1 Point Value = 2 Point Value = 3 Point Value = 5 Age 41-60 Minor surgery BMI > 25 kg/m2 Swollen legs Varicose veins or History of unexplained or recurrent spontaneous Oral contraceptives or hormone replacement Sepsis (< 1 month) Serious lung disease, including pneumonia (< 1 month) Abnormal pulmonary function Acute myocardial infarction Congestive heart failure (< 1 month) History of inflammatory bowel disease Medical patient at bed rest Age 61-74 Arthroscopic surgery Major open surgery (> 45 min) Laparoscopic surgery (> 45 min) Malignancy Confined to bed (> 72 hours) Immobilizing plaster cast Central venous access Age >= 75 History of VTE Family history of VTE Factor V Leiden Prothrombin [id number] Lupus anticoagulant Anticardiolipin antibodies Elevated serum homocysteine Heparin-induced thrombocytopenia Other congenital or acquired thrombophilia Stroke (< 1 month) Elective arthroplasty Hip, pelvis, or leg fracture Acute spinal cord injury (< 1 month) Prophylaxis Regimen Total Risk Factor Score Risk Level Prophylaxis Regimen 0-1 Low Early ambulation 2 Moderate Order ONE of the following: *Sequential Compression Device (SCD) *Heparin 5000 units SQ BID 3-4 Higher Order ONE of the following medications: *Heparin 5000 units SQ TID *Enoxaparin/Lovenox 40 mg SQ daily (WT < 150 kg, CrCl > 30 mL/min) *Enoxaparin/Lovenox 30 mg SQ daily (WT < 150 kg, CrCl > 10-29 mL/min) *Enoxaparin/Lovenox 30 mg SQ BID (WT < 150 kg, CrCl > 30 mL/min) AND/OR *Sequential Compression Device (SCD) 5 or more Highest Order ONE of the following medications: *Heparin 5000 units SQ TID (Preferred with Epidurals) *Enoxaparin/Lovenox 40 mg SQ daily (WT < 150 kg, CrCl > 30 mL/min) *Enoxaparin/Lovenox 30 mg SQ daily (WT < 150 kg, CrCl > 10-29 mL/min) *Enoxaparin/Lovenox 30 mg SQ BID (WT < 150 kg, CrCl > 30 mL/min) AND *Sequential Compression Device (SCD) Assessment and Plan Assessment and Plan 82yo F with COPD exacerbation Bilateral Pneumonia Sepsis (leukocytosis, tachycarda source PNA) Chronic prednisone use Blood cultures pending started on IV abx cefepime and vanco IV, monitor CTA reviewednomPE, shows bilateral PNA right >left Chronic hypoxic respiratory failure secondary to COPD - Continue DuoNebs and inhalers, supplemental oxygen Atrial fibrillation - Continue Cardizem and Eliquis. Hypertension - Continue Cozaar. GERD - Continue PPI Discussed Condition With pt, nurse Physician Certification 2 Midnight Certification Type: Admission for Inpatient Services Order for Inpatient Services The services are ordered in accordance with Medicare regulations or non- Medicare payer requirements, as applicable. In the case of services not specified as inpatient-only, they are appropriately provided as inpatient services in accordance with the 2-midnight benchmark. Estimated LOS (days): 3 days is the estimated time the patient will need to remain in the hospital, assuming treatment plan goals are met and no additional complications. Post-Hospital Plan: Home Jocelyne Lockett MD Feb 04, 2018 12:16
[2018-02-04] MEDS: CEFEPIME INJ 2,000 MG in SODIUM CHLORIDE 0.9% INJ 100 ML IV SCH (15:08)
[2018-02-04] MEDS: SODIUM CHLORIDE 0.9% FLUSH 10 ML FLUSH IV FLUSH SCH ×2 (15:12→20:36)
[2018-02-04] MEDS: LOSARTAN 50 MG TAB PO SCH (20:35)
[2018-02-04] MEDS: BUDESONIDE-FORMOTEROL 80/4.5 MCG INHALER INH SCH (22:59)
[2018-02-05] VITALS (11 sets, daily range): BP systolic 112–147; BP diastolic 47–76; PULSE 60–92; RESP 18–20; TEMP 97–98.3; O2SAT 92–96
[2018-02-05] MEDS: CEFEPIME INJ 2,000 MG in SODIUM CHLORIDE 0.9% INJ 100 ML IV SCH ×2 (02:00→14:12)
[2018-02-05] MEDS: RESP: ALBUTEROL 2.5 MG/IPRATROPIUM 0.5 MG NEB (SCH) INH ×4 (03:49→21:13)
[2018-02-05] MEDS: BUDESONIDE-FORMOTEROL 80/4.5 MCG INHALER INH SCH ×2 (08:25→20:59)
[2018-02-05] MEDS: SODIUM CHLORIDE 0.9% FLUSH 10 ML FLUSH IV FLUSH SCH ×2 (08:28→20:58)
[2018-02-05] MEDS: APIXABAN 2.5 MG TABLET PO SCH (08:30)
[2018-02-05] MEDS: DILTIAZEM-CD 240 MG CAP ER PO SCH (08:30)
[2018-02-05] MEDS: PANTOPRAZOLE SOD 40 MG DELAYED RELEASE TAB PO SCH (08:30)
[2018-02-05] MEDS: GABAPENTIN 300 MG CAP PO SCH ×3 (08:30→17:41)
[2018-02-05] MEDS: ASPIRIN EC 81 MG TABEC PO SCH (08:31)
[2018-02-05 13:26] LABS: AUTOMATED NEUTROPHIL # 15.2 TH/MM3 (1.8-7.7); BASOPHIL # 0.1 TH/MM3 (0-0.2); BASOPHIL % 0.3 % (0.0-2.0); EOSINOPHIL # 0.1 TH/MM3 (0-0.4); EOSINOPHIL % 0.8 % (0.0-4.0); HEMATOCRIT 35.7 % (35.0-46.0); HEMOGLOBIN 11.6 GM/DL (11.6-15.3); LYMPH % 1.6 % (9.0-44.0); LYMPHOCYTE # 0.3 TH/MM3 (1.0-4.8); MEAN CELL VOLUME 88.8 FL (80.0-100.0); MEAN CORPUSCULAR HEMOGLOBIN 28.8 PG (27.0-34.0); MEAN CORPUSCULAR HGB CONC 32.5 % (32.0-36.0); MEAN PLATELET VOLUME 8.2 FL (7.0-11.0); MONO % 3.7 % (0.0-8.0); MONOCYTE # 0.6 TH/MM3 (0-0.9); NEUT % 93.6 % (16.0-70.0); PLATELET COUNT 280 TH/MM3 (150-450); RED BLOOD COUNT 4.02 MIL/MM3 (4.00-5.30); WHITE BLOOD COUNT 16.2 TH/MM3 (4.0-11.0)
[2018-02-05 13:52] LABS: BICARBONATE 32.7 MEQ/L (21.0-32.0); CALCIUM 8.8 MG/DL (8.5-10.1); CREATININE 0.91 MG/DL (0.50-1.00)
[2018-02-05 13:55] LABS: RANDOM VANCOMYCIN 7.2 COMMENT
[2018-02-05] MEDS ORDERED: DOCUSATE SODIUM 50 MG/SENNA 8.6 MG TAB PO PRN (15:30)
[2018-02-05] MEDS: VANCOMYCIN INJ 750 MG in SODIUM CHLOR 0.9% 250 ML INJ 250 ML IV SCH (16:02)
--- NOTE | 2018-02-05 16:06 | HHI.PR ---
Subjective Remarks Pt tells me that her SOB is not improved. Feels nauseous but no nausea. Tells me that her death surveys coder is Dr. Velasquez. Tells me that she uses 4L NC at home Denies any chest pains Objective Vitals Vital Signs Date Time Temp Pulse Resp B/P (MAP) Pulse Ox O2 Delivery O2 Flow Rate FiO2 02/05/18 15:43 93 Nasal Cannula 3.00 02/05/18 12:09 80 02/05/18 12:00 97.2 63 18 116/47 (70) 93 02/05/18 09:31 73 02/05/18 08:35 Nasal Cannula 3.00 02/05/18 08:00 97.1 89 20 116/60 (78) 92 02/05/18 04:00 Nasal Cannula 3.00 02/05/18 04:00 97.0 63 18 112/57 (75) 93 02/05/18 04:00 62 02/05/18 00:16 Nasal Cannula 3.00 02/05/18 00:16 98.3 92 20 129/61 (83) 96 02/05/18 00:00 60 02/04/18 21:05 100 Nasal Cannula 3.00 02/04/18 20:30 Nasal Cannula 3.00 02/04/18 20:30 97.1 61 18 107/56 (73) 99 02/04/18 20:00 61 02/04/18 17:30 87 02/04/18 16:20 97.7 85 20 169/64 (99) 95 02/04/18 16:00 99.0 96 20 111/67 (82) 100 I/O 02/04/18 02/04/18 02/04/18 02/05/18 02/05/18 02/05/18 07:00 15:00 23:00 07:00 15:00 23:00 Intake Total 450 ml 510 ml 100 ml Balance 450 ml 510 ml 100 ml Intake Oral 410 ml IV Total 450 ml 100 ml 100 ml # Voids 1 3 Result Diagram: 02/05/18 1305 02/05/18 1305 Imaging Last Impressions Chest X-Ray 02/03/188 Signed Impressions: Service Date/Time: Saturday, February 03, 2018 19:55 - CONCLUSION: There is a new irregular shaped 2.7 cm opacity in the right midlung. Alan Painter MD CT Angiography 02/03/18 0000 Signed Impressions: Service Date/Time: Saturday, February 03, 2018 23:43 - CONCLUSION: 1. No PE is identified. 2. Severe emphysema with a right lung air space consolidation, most severe in the posterior segment of the right upper lobe. There is an associated small right pleural effusion and enlarged right hilar lymph node. These findings could represent an infectious process in the appropriate clinical setting. Suggest followup imaging following appropriate therapy to confirm resolution. 3. There is a mildly dilated impacted bronchi in the right lower lobe. Jb Rogers MD Objective Remarks GENERAL: elderly female, pursing her lips at times. ENT: Airway patent. NECK: Trachea midline. CARDIOVASCULAR: Regular rate and rhythm without murmurs RESPIRATORY: Clear to auscultation. Breath sounds equal bilaterally. No wheezes GASTROINTESTINAL: Abdomen soft, non-tender, nondistended. No guarding. MUSCULOSKELETAL: Extremities without edema. NEUROLOGICAL: Awake and alert. Motor and sensory grossly within normal limits. A/P Assessment and Plan 82yo F with COPD exacerbation Bilateral Pneumonia Sepsis (leukocytosis, tachycarda source PNA) Chronic prednisone use Blood cultures neg x 2 days on IV abx cefepime and vanco IV, monitor CTA reviewed neg forPE, shows bilateral PNA right >left. Pt known to Dr. Velasquez, consult placed to him. I had a long discussion w pt's son, Gary TOLBERT [phone] who is very concerned because pt was recently discharged from (for the flu) end of january and he strongly had suggested for d/c to rehab but pt refused and she was discharged home. apparently she didn't answer the home health staff. He worries that she is making poor decisions for herself. He would like her to be evaluated for capacity. I have placed a psych consult for assistance. I did consult CM for d/c planning. PT did see pt today and also recommends rehab. Chronic hypoxic respiratory failure secondary to COPD - Continue DuoNebs and symbicort inhaler, supplemental oxygen -Pt known to Dr. Velasquez Atrial fibrillation - Continue Cardizem and Eliquis. Hypertension - Continue Cozaar. GERD - Continue PPI Discharge Planning psych consulted for capacity. Dr. Velasquez, pulm, also consulted. Awaiting recs. Continue current management. Jenny Garvin MD Feb 05, 2018 16:06
[2018-02-05] MEDS: LOSARTAN 50 MG TAB PO SCH (20:58)
[2018-02-06] VITALS (12 sets, daily range): BP systolic 98–162; BP diastolic 47–72; PULSE 58–82; RESP 14–20; TEMP 97.4–98.8; O2SAT 90–99
[2018-02-06] MEDS: RESP: ALBUTEROL 2.5 MG/IPRATROPIUM 0.5 MG NEB (SCH) INH ×3 (02:20→20:38)
[2018-02-06] MEDS: CEFEPIME INJ 2,000 MG in SODIUM CHLORIDE 0.9% INJ 100 ML IV SCH ×2 (02:34→13:08)
[2018-02-06] MEDS: APIXABAN 2.5 MG TABLET PO SCH (08:05)
[2018-02-06] MEDS: DILTIAZEM-CD 240 MG CAP ER PO SCH (08:06)
[2018-02-06] MEDS: POLYETHYLENE GLYCOL 17 GM PKG PO SCH (08:06)
[2018-02-06] MEDS: PANTOPRAZOLE SOD 40 MG DELAYED RELEASE TAB PO SCH (08:06)
[2018-02-06] MEDS: GABAPENTIN 300 MG CAP PO SCH ×3 (08:06→17:01)
[2018-02-06] MEDS: ASPIRIN EC 81 MG TABEC PO SCH (08:10)
[2018-02-06] MEDS: SODIUM CHLORIDE 0.9% FLUSH 10 ML FLUSH IV FLUSH SCH ×2 (08:11→21:52)
[2018-02-06] MEDS: BUDESONIDE-FORMOTEROL 80/4.5 MCG INHALER INH SCH ×2 (08:11→21:53)
[2018-02-06 08:50] LABS: AUTOMATED NEUTROPHIL # 10.1 TH/MM3 (1.8-7.7); BASOPHIL % 0.2 % (0.0-2.0); EOSINOPHIL # 0.4 TH/MM3 (0-0.4); EOSINOPHIL % 3.9 % (0.0-4.0); HEMATOCRIT 32.5 % (35.0-46.0); HEMOGLOBIN 10.5 GM/DL (11.6-15.3); LYMPH % 3.9 % (9.0-44.0); LYMPHOCYTE # 0.4 TH/MM3 (1.0-4.8); MEAN CELL VOLUME 88.6 FL (80.0-100.0); MEAN CORPUSCULAR HEMOGLOBIN 28.6 PG (27.0-34.0); MEAN CORPUSCULAR HGB CONC 32.3 % (32.0-36.0); MEAN PLATELET VOLUME 8.6 FL (7.0-11.0); MONO % 4.7 % (0.0-8.0); MONOCYTE # 0.5 TH/MM3 (0-0.9); NEUT % 87.3 % (16.0-70.0); PLATELET COUNT 253 TH/MM3 (150-450); RED BLOOD COUNT 3.67 MIL/MM3 (4.00-5.30); RED CELL DISTRIBUTION WIDTH 15.7 % (11.6-17.2); WHITE BLOOD COUNT 11.5 TH/MM3 (4.0-11.0)
[2018-02-06 09:04] LABS: CALCIUM 8.6 MG/DL (8.5-10.1); CREATININE 0.67 MG/DL (0.50-1.00)
--- NOTE | 2018-02-06 11:39 | PD.PSY.CON ---
Provisional Diagnosis Admission Date Feb 04, 2018 at 02:08 Anton I. Psychological factors affecting a medical condition, in this case COPD Anton II. Deferred Anton III. COPD, A. fib, HTN, GERD, history of lung cancer, fibromyalgia History of Present Illness Service Psychiatry Consult Requested By Medical doctors Reason for Consult Decision-making capacity assessment Primary Care Physician Jena Greene MD HPI The patient is a 82-year-old woman, domiciled alone in [place], , she has one son, supported by Social Security, without no previous psychiatric history, no previous psychiatric hospitalizations, no previous suicidal attempts, she denies the use of alcohol and illegal drugs, I saw the patient about a month ago effective for the same reason than today, she has medical history of fibromyalgia, lung cancer on remission, COPD, GERD, A. fib, who was admitted in the hospital initially due to COPD exacerbation. The patient has been offered to be discharged to a subacute rehabilitation, but the patient has refused to go to any other place, but her house. For this reason she was consulted to psychiatry to assess decision-making capacity to anticipate and discharge planning. On psychiatric evaluation today patient is calm, cooperative and pleasant. Patient reports a good mood, "even though you can be happy to be in hospital", but she denies anhedonia, she denies hopelessness, she denies helplessness, the patient is future oriented, she says that she wants to be discharged back home with her neighbors "and have fun". The patient says that her son is very controlling and he things that she has no capacity, but she takes care of her monetary situation, her house, her hygiene, "everything in my life". The patient denies suicidal and homicidal ideation, she denies visual and auditory hallucinations. Patient is fully oriented 3, without any attention deficit, no fluctuation of consciousness, the patient was able to repeat 3 works, to recall and 3 minutes later, with a good abstract thinking, repetition, recent and immediate recall. The patient was able to verbalize that she might consider going to a subacute rehabilitation is really necessary "and is not for a long time", she was able to verbalize the reason of her hospitalization, acute respiratory distress, COPD exacerbation, she was able to list her multiples medical conditions. She denies the use of alcohol and illegal drugs. Review of Systems Constitutional: DENIES: Diaphoretic episodes, Fatigue, Fever, Weight gain, Weight loss, Chills, Dizziness, Change in appetite, Night Sweats Endocrine: DENIES: Abnorml menstrual pattern, Heat/cold intolerance, Polydipsia , Polyuria, Polyphagia Eyes: DENIES: Blurred vision, Diplopia, Eye inflammation, Eye pain, Vision loss , Photosensitivity, Double Vision Ears, nose, mouth, throat: DENIES: Tinnitus, Hearing loss, Vertigo, Nasal discharge, Oral lesions, Throat pain, Hoarseness, Ear Pain, Running Nose, Epistaxis, Sinus Pain, Toothache, Odynophagia Respiratory: COMPLAINS OF: Shortness of breath, DENIES: Apneas, Cough, Snoring , Wheezing, Hemoptysis, Sputum production Cardiovascular: DENIES: Chest pain, Palpitations, Syncope, Dyspnea on Exertion , PND, Lower Extremity Edema, Orthopnea, Claudication Gastrointestinal: DENIES: Abdominal pain, Black stools, Bloody stools, Constipation, Diarrhea, Nausea, Vomiting, Difficulty Swallowing, Anorexia Genitourinary: DENIES: Abnormal vaginal bleeding, Dysmenorrhea, Dyspareunia, Sexual dysfunction, Urinary frequency, Urinary incontinence, Urgency, Hematuria , Dysuria, Nocturia, Vaginal discharge Musculoskeletal: DENIES: Joint pain, Muscle aches, Stiffness, Joint Swelling, Back pain, Neck pain Integumentary: DENIES: Abnormal pigmentation, Pruritus, Rash, Nail changes, Breast masses, Breast skin changes, Nipple discharge Hematologic/lymphatic: DENIES: Bruising, Lymphadenopathy Immunologic/allergic: DENIES: Eczema, Urticaria Neurologic: DENIES: Abnormal gait, Headache, Localized weakness, Paresthesias, Seizures, Speech Problems, Tremor, Poor Balance Psychiatric: DENIES: Anxiety, Confusion, Mood changes, Depression, Hallucinations, Agitation, Suicidal Ideation, Homicidal Ideation, Delusions Past Family Social History Coded Allergies: codeine (Unverified Allergy, Severe, gi upset, 02/03/18) morphine (Unverified Allergy, Severe, gi upset, 02/03/18) penicillin G (Unverified Allergy, Severe, itchy, 02/03/18) amiodarone (Unverified Adverse Reaction, Severe, THYROID STORM, 02/03/18) Uncoded Allergies: NICKEL (Adverse Reaction, Intermediate, SKIN ITCHES, BLISTERS, , 05/13/14) Active Scripts Prednisone (21) 10 mg tab Dose Pack (Prednisone (21) 10 mg tab Dose Pack) 10 Mg Pack, 10 MG PO DIRECTED for Inflammation, #1 DSPK 0 Refills Prov:Aubrie Quiroz MD 01/31/18 [Albuterol-Ipratropium Neb] 1 AMPULE NEBU No Conflict Check, 1 AMPULE NEB Q6HR WHILE AWAKE NEB for copd, #90 Prov:Aubrie Quiroz MD 01/31/18 Oseltamivir (Tamiflu) 75 Mg Cap, 75 MG PO BID for Infection, #6 CAP Prov:Aubrie Quiroz MD 01/31/18 Reported Medications Diltiazem CD 24 HR (Diltiazem CD 24 HR) 240 Mg Caper, 240 MG PO DAILY, #30 CAP 0 Refills 01/12/18 Lansoprazole (Prevacid) 30 Mg Capdr, 30 MG PO DAILY, CAP 0 Refills 11/13/16 Losartan (Cozaar) 100 Mg Tab, 100 MG PO HS for Blood Pressure Management, #30 TAB 0 Refills 11/13/16 Lorazepam (Lorazepam) 0.5 Mg Tab, 0.5 MG PO BID Y for ANXIETY, TAB 0 Refills 11/13/16 Gabapentin (Gabapentin) 300 Mg Cap, 300 MG PO TID, #90 CAP 0 Refills 11/13/16 Ipratropium-Albuterol Inh (Combivent Respimat Inh) 20-100 Fci/Act Aero, 1 PUFF INH QID for Asthma Management, #1 INHALER 0 Refills 11/13/[address] (Aspirin 81) 81 Mg Tabdr, 81 MG PO DAILY, TAB 0 Refills 11/13/16 Apixaban (Eliquis) 2.5 Mg Tab, 2.5 MG PO DAILY for Blood Clot Prevention, TAB 0 Refills 11/13/16 Fluticasone-Salmeterol Inh (Advair Diskus Inh) 100-50 Mcg/Blist Aer, 1 PUFF INH BID for Asthma Management, #1 INHALER 0 Refills Rinse mouth after use. 11/13/16 Discontinued Reported Medications Albuterol 18 GM Inh (Ventolin Hfa 18 GM Inh) 90 Mcg/Act Aer, 2 PUFF INH Q4-6H Y for SHORTNESS OF BREATH, #1 INHALER 0 Refills 12/14/16 Albuterol Neb (Albuterol Neb) 2.5 Mg/0.5 Ml Neb, 2.5 MG NEB Q4HR NEB Y for SOB/ WHEEZING, EA Note: The Albuterol Sulfate Inhalation Solution is concentrated and must be diluted. Read complete instructions carefully before using. 11/13/16 Current Medications Medications (Trade) Dose Ordered Sig/Gail Route Start Time Stop Time Status Last Admin Pharmacy Profile Note 0 ml @ 0 mls/hr UNSCH OTHER 02/04/18 01:15 (NS Flush) 2 ml UNSCH PRN IV FLUSH 02/04/18 01:15 (NS Flush) 2 ml BID IV FLUSH 02/04/18 09:00 02/06/18 08:11 (Tylenol) 650 mg Q4H PRN PO 02/04/18 01:15 (Duoneb Neb) 1 ampule Q6HR NEB INH 02/04/18 04:00 02/06/18 10:26 (Duoneb Neb) 1 ampule Q4HR NEB PRN INH 02/04/18 01:15 (Robitussin Dm 200-20 Mg/10 ml Liq) 10 ml Q4H PRN PO 02/04/18 01:15 (Eliquis) 2.5 mg DAILY PO 02/04/18 09:00 02/06/18 08:05 (Ecotrin Ec) 81 mg DAILY PO 02/04/18 09:00 02/06/18 08:10 (Cardizem Cd) 240 mg DAILY PO 02/04/18 09:00 02/06/18 08:06 (Neurontin) 300 mg TID PO 02/04/18 09:00 02/06/18 08:06 (Ativan) 0.5 mg BID PRN PO 02/04/18 01:15 02/04/18 08:44 (Cozaar) 100 mg HS PO 02/04/18 21:00 02/05/18 20:58 (Symbicort 80-4.5 Mcg Inh) 2 puff BID INH 02/04/18 09:00 02/06/18 08:11 (Protonix) 40 mg DAILY PO 02/04/18 09:00 02/06/18 08:06 Cefepime HCl 2000 mg/Sodium Chloride 100 ml @ 200 mls/hr Q12H IV 02/04/18 14:00 02/06/18 02:34 Vancomycin HCl 750 mg/Sodium Chloride 257.5 ml @ 250 mls/hr Q24H IV 02/05/18 16:00 02/05/18 16:02 Miscellaneous Information SPECIFIC LAB TO BE DRAWN:VANCO TROUGH DATE TO... ONCE ONCE .XX 02/08/18 15:45 02/08/18 15:46 (Miralax) 17 gm DAILY PO 02/06/18 09:00 02/06/18 08:06 (Lety-Colace) 1 tab BID PRN PO 02/05/18 15:30 Family Psych History No family psychiatric history Social History Patient was born and raised in [place], she lives in [place] alone, she is a , she has one son who is 60 years old, is her healthcare proxy, supported by Social Security, her highest level of education is high school Patient's Strengths (min. 2) No previous significant history Physical Exam No tremors, no EPS, no stiffness Vital Signs Vital Signs Date Time Temp Pulse Resp B/P (MAP) Pulse Ox O2 Delivery O2 Flow Rate FiO2 02/06/18 10:31 90 Nasal Cannula 4.00 02/06/18 08:27 97.6 82 17 123/69 (87) I/O 02/06/18 02/06/18 02/07/18 08:00 16:00 00:00 Intake Total 670 ml Output Total 475 ml Balance 195 ml Lab Results Test 02/05/18 13:05 02/06/18 07:24 White Blood Count 16.2 TH/MM3 11.5 TH/MM3 Red Blood Count 4.02 MIL/MM3 3.67 MIL/MM3 Hemoglobin 11.6 GM/DL 10.5 GM/DL Hematocrit 35.7 % 32.5 % Mean Corpuscular Volume 88.8 FL 88.6 FL Mean Corpuscular Hemoglobin 28.8 PG 28.6 PG Mean Corpuscular Hemoglobin Concent 32.5 % 32.3 % Red Cell Distribution Width 16.0 % 15.7 % Platelet Count 280 TH/MM3 253 TH/MM3 Mean Platelet Volume 8.2 FL 8.6 FL Neutrophils (%) (Auto) 93.6 % 87.3 % Lymphocytes (%) (Auto) 1.6 % 3.9 % Monocytes (%) (Auto) 3.7 % 4.7 % Eosinophils (%) (Auto) 0.8 % 3.9 % Basophils (%) (Auto) 0.3 % 0.2 % Neutrophils # (Auto) 15.2 TH/MM3 10.1 TH/MM3 Lymphocytes # (Auto) 0.3 TH/MM3 0.4 TH/MM3 Monocytes # (Auto) 0.6 TH/MM3 0.5 TH/MM3 Eosinophils # (Auto) 0.1 TH/MM3 0.4 TH/MM3 Basophils # (Auto) 0.1 TH/MM3 0.0 TH/MM3 CBC Comment DIFF FINAL DIFF FINAL Differential Comment Blood Urea Nitrogen 38 MG/DL 28 MG/DL Creatinine 0.91 MG/DL 0.67 MG/DL Random Glucose 161 MG/DL 76 MG/DL Calcium Level 8.8 MG/DL 8.6 MG/DL Sodium Level 141 MEQ/L 143 MEQ/L Potassium Level 3.9 MEQ/L 4.2 MEQ/L Chloride Level 103 MEQ/L 107 MEQ/L Carbon Dioxide Level 32.7 MEQ/L 31.0 MEQ/L Anion Gap 5 MEQ/L 5 MEQ/L Estimat Glomerular Filtration Rate 59 ML/MIN 84 ML/MIN Random Vancomycin Level 7.2 COMMENT Date/Time Source Procedure Growth Status 02/03/18 20:25 Blood Peripheral Aerobic Blood Culture - Preliminary NO GROWTH IN 3 DAYS Resulted 02/03/18 20:25 Blood Peripheral Anaerobic Blood Culture - Preliminary NO GROWTH IN 3 DAYS Resulted Mental Status Examination Appearance: Appropriate Consciousness: Alert Orientation: x4 Motor Activity: Normal gait Speech: Unremarkable Language: Adequate Fund of Knowledge: Adequate Attention and Concentration: Adequate Memory: Unremarkable Mood: Appropriate Affect: Appropriate Thought Process & Associations: Intact Thought Content: Appropriate Hallucination Type: None Delusion Type: None Suicidal Ideation: No Suicidal Plan: No Suicidal Intention: No Homicidal Ideation: No Homicidal Plan: No Homicidal Intention: No Insight: Adequate Judgment: Adequate Assessment & Plan Problem List: (1) Psychological factors affecting medical condition ICD Codes: F54 - Psychological and behavioral factors associated with disorders or diseases classified elsewhere Assessment & Plan: On psychiatric evaluation today the patient does not present any evidence of acute depression, anxiety, david psychosis. She denies suicidal and homicidal ideation, she denies visual and auditory hallucinations. The patient is fully oriented 3, with any gross cognitive impairment present at the moment of this evaluation. The patient is able to verbalize a very good understanding and appreciation of current medical situation, medical conditions , and the choice to go back home and not going to an [facility] with the argument that she would find people to help her at home. However, she clarifies that she is willing to go to the [facility] if really necessary. At the moment of this evaluation the patient is found to have decision-making capacity to refuse [facility] and participate in discharge planning. Brief supportive psychotherapy and psychoeducation provided. No psychotropics indicated at this moment. Consul appreciated. (2) COPD (chronic obstructive pulmonary disease) ICD Codes: J44.9 - Chronic obstructive pulmonary disease Status: Acute Assessment & Plan Estimated LOS: days Ronnie Palmer MD Feb 06, 2018 11:39
[2018-02-06] MEDS: predniSONE 20 MG TAB PO SCH (14:48)
[2018-02-06] MEDS: VANCOMYCIN INJ 750 MG in SODIUM CHLOR 0.9% 250 ML INJ 250 ML IV SCH (16:20)
--- NOTE | 2018-02-06 16:30 | MB ---
cc: Refugio Velasquez MD DATE OF CONSULT: 02/06/2018 HISTORY OF PRESENT ILLNESS: Ms. Phillips is an 82-year-old white female whom I have known for just over two years with severe COPD and pulmonary cachexia. She has been hospitalized several times since late last year with exacerbations of COPD. Each time she returns home where she tries to care for herself independently but it has resulted in recurrent hospitalizations due to the severity of her underlying disease and probably her inability to really take full care of herself at this point. On this admission she clearly has a right lower lobe infiltrate with a small effusion which would account for why she is worse again. She did have lung cancer but that was over 15 years; there has been no recurrence of that. Her last CT scan prior to this admission was in October with no evidence of malignancy. She was a former smoker for many years. To my knowledge she is not smoking at the present time; she denies it. At home she is on Advair, a nebulizer, oxygen continuously. MEDICATIONS HERE IN THE HOSPITAL: Reviewed in the EMR. She seems a little confused but seems to recognize that she may need assisted living at this point and says she will discuss that with her son who will probably be over this weekend. I think he lives in [facility]. She has had no chest pain or hemoptysis. She is afebrile. She has no animal exposures at home. The only other exposures recently has been recurrent hospitalizations. PAST MEDICAL HISTORY: 1. Hypertension. 2. Degenerative arthritis. 3. Prior history of hyperthyroidism with a partial thyroidectomy. 4. Atrial fibrillation. 5. 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 6. Prior cholecystectomy. 7. Appendectomy. ALLERGIES: MULTIPLE ALLERGIES, LISTED IN HER CHART. SOCIAL HISTORY: She is , lives alone. about four years ago of Alzheimer's disease. No longer smoking. Denies alcohol use. REVIEW OF SYSTEMS: Appetite has been poor. She is very cachectic. No visual complaints. No anginal chest pain. No nausea or vomiting or recent change in bowel habits. No disabling arthritis, although she does have DJD. PHYSICAL EXAMINATION: GENERAL: An elderly, frail-appearing cachectic white female in no distress at rest, a little confused. VITAL SIGNS: Temperature 97 degrees, 120/70 blood pressure, pulse is 60, respirations are 18. HEENT: Sclerae pale, anicteric. NECK: Neck veins are flat. No adenopathy palpable in the neck. CHEST: Very diminished. A little basilar congestion. CARDIOVASCULAR: Regular rhythm of the heart; no harsh murmur. EXTREMITIES: No peripheral edema or cyanosis. ASSESSMENT AND PLAN: Ms. Phillips presents with right lower lobe pneumonia and severe underlying COPD with progressive physical decline over the last several months with repeated hospitalizations. If she is agreeable, I think at a minimum discharge this time to a long term facility for rehab would be advisable. I have also suggested Palliative Care see her to talk about future goals of therapy. Her disease is very significant and the likelihood or problems going forward is very high. I have added 20 mg of prednisone. We will continue the aerosolized bronchodilators and antibiotics. Further diagnostic and/or therapeutic intervention will depend on her ongoing clinical course. R. MD BABAK Camejo/BELEN , 03:14 PM , 04:28 PM
--- NOTE | 2018-02-06 17:00 | HHI.PR ---
Subjective Remarks RN denies any deterioration since last night. Pt willing to go to SNF for a few days after education. Objective Vital Signs Date Time Temp Pulse Resp B/P (MAP) Pulse Ox O2 Delivery O2 Flow Rate FiO2 02/06/18 12:28 68 02/06/18 12:12 97.4 72 20 102/50 (67) 91 02/06/18 10:31 90 Nasal Cannula 4.00 02/06/18 08:27 97.6 82 17 123/69 (87) 93 02/06/18 08:02 Nasal Cannula 4.00 02/06/18 07:44 59 02/06/18 04:00 98.8 58 20 98/47 (64) 95 02/06/18 04:00 60 02/06/18 04:00 Nasal Cannula 3.00 02/06/18 02:20 95 Nasal Cannula 3.00 02/06/18 00:00 68 02/06/18 00:00 98.7 62 20 162/72 (102) 93 02/06/18 00:00 Nasal Cannula 3.00 02/05/18 20:00 65 02/05/18 20:00 97.5 63 18 118/55 (76) 96 02/05/18 20:00 Nasal Cannula 3.00 I/O 02/05/18 02/05/18 02/05/18 02/06/18 02/06/18 02/06/18 07:00 15:00 23:00 07:00 15:00 23:00 Intake Total 510 ml 100 ml 737.5 ml 670 ml Output Total 700 ml 475 ml Balance 510 ml 100 ml 37.5 ml 195 ml Intake Oral 410 ml 480 ml 570 ml IV Total 100 ml 100 ml 257.5 ml 100 ml Output Urine Total 700 ml 475 ml # Voids 3 1 # Bowel Movements 1 1 Result Diagram: 02/06/1824 02/06/1824 Objective Remarks mild respiratory distress which is her baseline, sitting up in bed, relatively course BS BL A/P Assessment and Plan 82yo F with Bilateral Pneumonia - on IV abx cefepime and vanco IV, monitor - Blood cultures neg x 2 days - procalcitonin ordered, if neg, will dc abx chronic hypoxic respiratory failure secondary to COPD - Continue DuoNebs and symbicort inhaler, supplemental oxygen - Pt known to Dr. White - po prednisone; no further recs for any invasive procedures from pulm Atrial fibrillation - Continue Cardizem and Eliquis. Hypertension - Continue Cozaar. GERD - Continue PPI Discharge Planning Awaiting recs. Continue current management. Pt open to SNF for temporary placement Cecilio Patterson MD Feb 06, 2018 17:00
[2018-02-06] MEDS: LOSARTAN 50 MG TAB PO SCH (21:52)
[2018-02-07] VITALS: BP 111/55; PULSE 62; PULSE 76; RESP 16; TEMP 97.3; O2SAT 98
[2018-02-07] MEDS: CEFEPIME INJ 2,000 MG in SODIUM CHLORIDE 0.9% INJ 100 ML IV SCH ×2 (02:00→13:02)
[2018-02-07 04:00] VITALS: BP 127/58; PULSE 65; PULSE 69; RESP 18; TEMP 97.2; O2SAT 97
[2018-02-07] MEDS: RESP: ALBUTEROL 2.5 MG/IPRATROPIUM 0.5 MG NEB (SCH) INH ×2 (07:52→11:34)
[2018-02-07 07:57] VITALS: O2SAT 92
[2018-02-07 08:00] VITALS: BP 193/72; PULSE 56; PULSE 82; RESP 20; TEMP 97.5; O2SAT 93
[2018-02-07] MEDS: BUDESONIDE-FORMOTEROL 80/4.5 MCG INHALER INH SCH (09:32)
[2018-02-07] MEDS: PANTOPRAZOLE SOD 40 MG DELAYED RELEASE TAB PO SCH (09:32)
[2018-02-07] MEDS: GABAPENTIN 300 MG CAP PO SCH ×2 (09:32→13:01)
[2018-02-07] MEDS: predniSONE 20 MG TAB PO SCH (09:33)
[2018-02-07] MEDS: SODIUM CHLORIDE 0.9% FLUSH 10 ML FLUSH IV FLUSH SCH (09:33)
[2018-02-07] MEDS: POLYETHYLENE GLYCOL 17 GM PKG PO SCH (09:33)
[2018-02-07] MEDS: ASPIRIN EC 81 MG TABEC PO SCH (09:33)
[2018-02-07] MEDS: DILTIAZEM-CD 240 MG CAP ER PO SCH (09:33)
[2018-02-07] MEDS: APIXABAN 2.5 MG TABLET PO SCH (09:33)
[2018-02-07 12:00] VITALS: BP 141/63; PULSE 68; PULSE 75; RESP 20; TEMP 97.4; O2SAT 93
--- NOTE | 2018-02-07 13:13 | HHI.PR ---
Subjective Remarks Patient is on 4L oxygen. Afebrile. She uses 4L oxygen at home. Objective Vital Signs Vital Signs Date Time Temp Pulse Resp B/P (MAP) Pulse Ox O2 Delivery O2 Flow Rate FiO2 02/07/18 08:00 Nasal Cannula 4.00 02/07/18 08:00 97.5 56 20 193/72 (112) 93 02/07/18 07:57 92 Nasal Cannula 4.00 02/07/18 04:00 97.2 65 18 127/58 (81) 97 02/07/18 04:00 69 02/07/18 00:00 Nasal Cannula 4.00 02/07/18 00:00 62 02/07/18 00:00 97.3 76 16 111/55 (73) 98 02/06/18 20:00 Nasal Cannula 4.00 02/06/18 20:00 98.1 61 14 128/58 (81) 99 02/06/18 19:56 71 02/06/18 16:21 64 02/06/18 16:12 97.9 62 20 136/53 (80) 98 I/O 02/06/18 02/06/18 02/06/18 02/07/18 02/07/18 02/07/18 07:00 15:00 23:00 07:00 15:00 23:00 Intake Total 670 ml 100 ml 857.5 ml 340 ml Output Total 475 ml Balance 195 ml 100 ml 857.5 ml 340 ml Intake Oral 570 ml 600 ml 240 ml IV Total 100 ml 100 ml 257.5 ml 100 ml Output Urine Total 475 ml # Voids 5 4 # Bowel Movements 1 0 Result Diagram: 02/06/1872302/06/18723 Other Results Last Impressions Chest X-Ray 02/03/181937 Signed Impressions: Service Date/Time: Saturday, February 03, 2018 19:55 - CONCLUSION: There is a new irregular shaped 2.7 cm opacity in the right midlung. Alan Painter MD CT Angiography 02/03/18 0000 Signed Impressions: Service Date/Time: Saturday, February 03, 2018 23:43 - CONCLUSION: 1. No PE is identified. 2. Severe emphysema with a right lung air space consolidation, most severe in the posterior segment of the right upper lobe. There is an associated small right pleural effusion and enlarged right hilar lymph node. These findings could represent an infectious process in the appropriate clinical setting. Suggest followup imaging following appropriate therapy to confirm resolution. 3. There is a mildly dilated impacted bronchi in the right lower lobe. Jb Rogers MD Objective Remarks GENERAL: Patient is lying in bed in NAD SKIN: Warm and dry. HEAD: Normocephalic. EYES: No scleral icterus. No injection or drainage. NECK: Supple, trachea midline. No JVD or lymphadenopathy. CARDIOVASCULAR: Regular rate and rhythm without murmurs, gallops, or rubs. RESPIRATORY: Breath sounds equal bilaterally. Diminished GASTROINTESTINAL: Abdomen soft, non-tender, nondistended. MUSCULOSKELETAL: No cyanosis, or edema. Neuro: awake and alert A/P Assessment and Plan 1)Resp Insuff 2)COPD exac 3)Right sided pneumonia 4)Leukocytosis... trending down 5)Anemia 6) Afib 7)HTN Plan Continue with oxygen keep sats >92% Bronchodilators ( DuoNeb, Symbicort) on Prednisone 20mg daily [id number] abx ( Cefepime, Vanco)monitor for signs of infections ( fever, WBC) BC: NGTD, check sputum cx Check strep pneumonia and Legionella urinary Ag GI/DVT prophylaxis- On Eliquis 2.5mg daily Continue treatment plan Rina Birmingham MD Feb 07, 2018 13:13
[2018-02-07] MEDS ORDERED: POLY17S PO (15:01)
[2018-02-07] MEDS ORDERED: LORA0.5T PO (15:01)
--- NOTE | 2018-02-07 15:17 | HHI.DCPOC ---
Discharge Care Plan Diagnosis: (1) COPD exacerbation (2) Shortness of breath dyspnea (3) Chronic respiratory failure Goals to Promote Your Health * To prevent worsening of your condition and complications * To maintain your health at the optimal level Directions to Meet Your Goals Take your medications as prescribed Follow your dietary instruction Follow activity as directed Keep your appointments as scheduled Take your immunizations and boosters as scheduled If your symptoms worsen call your PCP, if no PCP go to Urgent Care Center or Emergency Room Smoking is Dangerous to Your Health. Avoid second hand smoke Call the 24-hour hour crisis hotline for domestic abuse at Cecilio Patterson MD Feb 07, 2018 15:17
[2018-02-07] MEDS ORDERED: LEVO750T3 PO (15:19)
[2018-02-07] MEDS ORDERED: VENTAER INH (15:19)
--- NOTE | 2018-02-07 15:21 | HHI.DS ---
Discharge Summary Admission Date Feb 04, 2018 at 02:08 Discharge Date: Feb 07, 2018 Admitting Diagnosis Pneumonia, COPD Exacerbation, CHF (1) Shortness of breath dyspnea ICD Code: R06.02 - Shortness of breath Status: Acute (2) Chronic respiratory failure ICD Code: J96.10 - Chronic respiratory failure, unspecified whether with hypoxia or hypercapnia Status: Acute (3) COPD exacerbation ICD Code: J44.1 - Chronic obstructive pulmonary disease with (acute) exacerbation Status: Acute Procedures none Brief History - From Admission 82-year-old female with history of COPD/emphysema, presents with having worsening shortness of breath lately, felt like she just could not get any air today. The patient is a poor historian. Patient denies any fever, chills, sweats but notes generalized malaise of late as well. Has mild cough that is nonproductive. Denies any leg swelling or leg pain. CBC/BMP: 02/06/18 0724 02/06/18 0724 Significant Findings Laboratory Tests Test 02/05/18 13:05 02/06/18 07:24 02/06/18 19:23 White Blood Count 16.2 TH/MM3 (4.0-11.0) 11.5 TH/MM3 (4.0-11.0) Neutrophils (%) (Auto) 93.6 % (16.0-70.0) 87.3 % (16.0-70.0) Lymphocytes (%) (Auto) 1.6 % (9.0-44.0) 3.9 % (9.0-44.0) Neutrophils # (Auto) 15.2 TH/MM3 (1.8-7.7) 10.1 TH/MM3 (1.8-7.7) Lymphocytes # (Auto) 0.3 TH/MM3 (1.0-4.8) 0.4 TH/MM3 (1.0-4.8) Blood Urea Nitrogen 38 MG/DL (7-18) 28 MG/DL (7-18) Random Glucose 161 MG/DL (74-106) Carbon Dioxide Level 32.7 MEQ/L (21.0-32.0) Estimat Glomerular Filtration Rate 59 ML/MIN (>89) 84 ML/MIN (>89) Red Blood Count 3.67 MIL/MM3 (4.00-5.30) Hemoglobin 10.5 GM/DL (11.6-15.3) Hematocrit 32.5 % (35.0-46.0) Procalcitonin 0.27 ng/mL (0.00-0.08) Imaging Last Impressions Chest X-Ray 02/03/18 1938 Signed Impressions: Service Date/Time: Saturday, February 03, 2018 19:55 - CONCLUSION: There is a new irregular shaped 2.7 cm opacity in the right midlung. Alan Painter MD CT Angiography 02/03/18 0000 Signed Impressions: Service Date/Time: Saturday, February 03, 2018 23:43 - CONCLUSION: 1. No PE is identified. 2. Severe emphysema with a right lung air space consolidation, most severe in the posterior segment of the right upper lobe. There is an associated small right pleural effusion and enlarged right hilar lymph node. These findings could represent an infectious process in the appropriate clinical setting. Suggest followup imaging following appropriate therapy to confirm resolution. 3. There is a mildly dilated impacted bronchi in the right lower lobe. Jb Rogers MD PE at Discharge Elderly white female, mild respiratory distress which is her baseline, sitting up in bed, no conversive dyspnea, frail-appearing, clear lung sounds bilaterally Hospital Course Patient was admitted, started on IV antibiotics, duo nebs, and steroids. CT pulmonary angiogram was negative for embolism but positive for pneumonia. Pulmonology had been consulted and deemed no further intervention from their standpoint. Patient reluctantly agreed to temporary SNF placement. Patient had been transitioned back down to her baseline with home O2. Patient has met maximal benefit from hospitalization and is clinically stable for discharge to SNF. Pt Condition on Discharge: Stable Discharge Disposition: Discharge to SNF Discharge Time: > 30 minutes Discharge Instructions Follow up Referrals: PCP Follow-up - 1 Week Pulmonology - 2 Weeks with Refugio Velasquez MD New Medications: Albuterol 18 GM Inh (Ventolin Hfa 18 GM Inh) 90 Mcg/Act Aer 2 PUFF INH Q4-6H PRN for SHORTNESS OF BREATH, #1 INHALER 0 Refills Levofloxacin (Levofloxacin) 750 Mg Tablet 750 MG PO DAILY for Infection, #10 TAB 0 Refills Polyethylene Glycol 3350 Powder (Polyethylene Glycol 3350 Powder) 17 Gram Pow 17 GM PO DAILY for constipation, #1 BOTTLE Continued Medications: Apixaban (Eliquis) 2.5 Mg Tab 2.5 MG PO DAILY for Blood Clot Prevention, TAB [address] (Aspirin 81) 81 Mg Tabdr 81 MG PO DAILY, TAB 0 Refills Diltiazem CD 24 HR (Diltiazem CD 24 HR) 240 Mg Caper 240 MG PO DAILY, #30 CAP 0 Refills Fluticasone-Salmeterol Inh (Advair Diskus Inh) 100-50 Mcg/Blist Aer 1 PUFF INH BID for Asthma Management, #1 INHALER 0 Refills Rinse mouth after use. Gabapentin (Gabapentin) 300 Mg Cap 300 MG PO TID, #90 CAP 0 Refills Lansoprazole (Prevacid) 30 Mg Capdr 30 MG PO DAILY, CAP 0 Refills Lorazepam (Lorazepam) 0.5 Mg Tab 0.5 MG PO BID PRN for ANXIETY, #60 TAB 0 Refills (This prescription has been renewed) Losartan (Cozaar) 100 Mg Tab 100 MG PO HS for Blood Pressure Management, #30 TAB 0 Refills [Albuterol-Ipratropium Neb] () 1 AMPULE NEBU 1 AMPULE NEB Q6HR WHILE AWAKE NEB for copd, #90 Discontinued Medications: Oseltamivir (Tamiflu) 75 Mg Cap 75 MG PO BID for Infection, #6 CAP Cecilio Patterson MD Feb 07, 2018 15:21
[2018-02-08] MEDS ORDERED: PHARMACY ORDERED LAB ONE (15:45)
== END 2018-02-07 17:04 | DRG 194 ==
LOC: NEDAMB 17:20 → UNDOADMIN 02-04 00:59 → NEDA 02-04 00:59 → INTOOBSV 02-04 01:09 → NEDA 02-04 01:40 → OBSVTOIN 02-04 02:08 → N04B 02-04 17:20
PROVIDERS: ADMIT Hospitalist; ATTEND Hospitalist
DX: J18.1 Lobar pneumonia, unspecified organism (principal); J96.11 Chronic respiratory failure with hypoxia; J44.0 Chronic obstructive pulmonary disease with (acute) lower respiratory infection; R64 Cachexia; I50.9 Heart failure, unspecified; I11.0 Hypertensive heart disease with heart failure; J44.1 Chronic obstructive pulmonary disease with (acute) exacerbation; B15.9 Hepatitis A without hepatic coma; M79.7 Fibromyalgia; K21.9 Gastro-esophageal reflux disease without esophagitis; K22.70 Barrett's esophagus without dysplasia; E78.00 Pure hypercholesterolemia, unspecified; D64.9 Anemia, unspecified; R19.7 Diarrhea, unspecified; I48.91 Unspecified atrial fibrillation; M19.90 Unspecified osteoarthritis, unspecified site; F54 Psychological and behavioral factors associated with disorders or diseases classified elsewhere; E78.5 Hyperlipidemia, unspecified; I25.10 Atherosclerotic heart disease of native coronary artery without angina pectoris; Z87.442 Personal history of urinary calculi; Z90.49 Acquired absence of other specified parts of digestive tract; Z79.52 Long term (current) use of systemic steroids; Z79.01 Long term (current) use of anticoagulants; Z87.891 Personal history of nicotine dependence; Z99.81 Dependence on supplemental oxygen; Z85.118 Personal history of other malignant neoplasm of bronchus and lung
CPT/HCPCS: 36600; 71045; 71275; 80048; 80053; 80202; 82550; 82805; 83735; 83880; 84145; 84484; 85025; 85379; 85610; 85730; 87040; 93005; 94640; 94664; 96365; 96375; J0692; J2930; J3370; J7050; J7512; Q9967